=== PATIENT | male | born 1975 | race Caucasian/White ===

== ENCOUNTER → 2018-03-04 | Outpatient (CLI) | payer OTHER ==
--- NOTE | 2018-03-04 11:42 | Diagnostic Imaging Report ---
TECHNIQUE: Magnetic resonance imaging of the right ANKLE was performed WITHOUT injected contrast. COMPARISON: None available. HISTORY: ankle pain, swelling FINDINGS: LIGAMENTS: Medial Complex: Deltoid and spring complex intact. Lateral Complex: Inferior tibiofibular ligaments intact. Talofibular and calcaneofibular ligaments intact. TENDONS: Medial: Tendons intact. Lateral: Peroneal brevis tendinosis. No tear. Anterior: Tendinopathy and tenosynovitis of the anterior tibial tendon. Achilles: Intact BONES: No focal or infiltrative bone marrow replacing abnormality. No acute fracture or osteonecrosis. JOINTS: Cartilage: Mild midfoot and hindfoot degenerative arthrosis. Other: Fluid within the joints is within physiologic limits. SOFT TISSUES: Chronic plantar fascial thickening. IMPRESSION: No acute osseous or ligamentous abnormality. Tendinopathy and tenosynovitis of the anterior tibial tendon. Mild midfoot and hindfoot degenerative arthrosis. Signed by: Dr. David Rossi M.D. on 03/04/2018 11:39 AM
== END ==
LOC: MRI 08:52
PROVIDERS: ATTEND Podiatrist Foot & Ankle Surgery
DX: M25.571 Pain in right ankle and joints of right foot (principal); M25.471 Effusion, right ankle; M66.371 Spontaneous rupture of flexor tendons, right ankle and foot

== ENCOUNTER 2020-04-29 13:22 | Inpatient (IN) | payer BC ==
[~2020-04-29] VITALS: Ht 180.3 cm; Wt 105.4 kg
[2020-04-29 14:03] LABS: BASOPHILS # (AUTO) 0.1 (0.0-0.1); BASOPHILS % 0.3 % (0.0-1.0); EOSINOPHILS % 0.2 % (0.0-6.0); HEMATOCRIT 45.6 % (38.2-49.6); HEMOGLOBIN 15.5 g/dL (14.0-18.0); LYMPHOCYTES % 5.5 % (18.0-39.1); MEAN CORPUSCULAR HEMOGLOBIN 30.4 pg (28-32); MEAN CORPUSCULAR VOLUME 89.4 fL (81-99); MONOCYTES # (AUTO) 0.6 (0.2-0.8); MONOCYTES % 3.4 % (4.4-11.3); NEUTROPHILS # (AUTO) 15.8 (2.1-6.9); NEUTROPHILS % 88.9 % (38.7-80.0); PLATELET COUNT 253 x10e3/uL (140-360); RED CELL DISTRIBUTION WIDTH 12.7 % (11.7-14.4)
[2020-04-29 14:07] LABS: PROTHROMBIN TIME 13.8 seconds (11.9-14.5)
[2020-04-29 14:08] LABS: PARTIAL THROMBOPLASTIN TIME 29.2 seconds (23.8-35.5)
[2020-04-29 14:18] LABS: ALANINE AMINOTRANSFERASE 68 IU/L (0-55); ALBUMIN 3.6 g/dL (3.5-5.0); ALBUMIN/GLOBULIN RATIO 0.7 (0.8-2.0); ALKALINE PHOSPHATASE 81 IU/L (40-150); ANION GAP 17.9 mmol/L (8-16); BLOOD UREA NITROGEN 19 mg/dL (7-26); BUN/CREATININE RATIO 16 (6-25); CALCIUM 9.5 mg/dL (8.4-10.2); CARBON DIOXIDE 25 mmol/L (22-29); CHLORIDE 103 mmol/L (98-107); CREATINE KINASE 71 IU/L (30-200); CREATININE, SERUM 1.21 mg/dL (0.72-1.25); EST GLOMERULAR FILTRATION RATE > 60 ML/MIN (60-); GLUCOSE 119 mg/dL (74-118); MAGNESIUM 2.1 MG/DL (1.3-2.1); POTASSIUM 3.9 mmol/L (3.5-5.1); SODIUM 142 mmol/L (136-145)
[2020-04-29] MEDS ORDERED: CEFTRIAXONE SOD 1 GM 50 ML IV SCH (14:30)
[2020-04-29] MEDS ORDERED: IOPAMIDOL 370 MG/ML 200 ML INFUS..BTL INJ ONE (15:26)
[2020-04-29] MEDS ORDERED: SODIUM CHLORIDE 0.9% 50ML 50 ML ONE (15:26)
[2020-04-29] MEDS ORDERED: SODIUM CHLORIDE 0.9% 1000ML 1,000 ML IV SCH (15:30)
[2020-04-29] MEDS ORDERED: REMDESIVIR 200MG/NS 100ML 200 MG IV SCH (16:15)
[2020-04-29] MEDS ORDERED: DEXAMETHASONE SOD PHOS 10 MG/1 ML VIAL IV ONE (16:15)
[2020-04-29] MEDS: AZITHROMYCIN 500MG/NS 250 ML 250 ML IV SCH (16:34)
[2020-04-29] MEDS: ENOXAPARIN INJ 80 MG/0.8 ML SYR SC SCH (16:34)
[2020-04-29] MEDS: ASCORBIC ACID 500 MG TAB PO SCH ×3 (16:34→17:52)
[2020-04-29] MEDS ORDERED: DEXAMETHASONE4 MG PO (16:43)
[2020-04-29] MEDS ORDERED: PROAIR HFA INH8.5 GM PO (16:43)
[2020-04-29] MEDS ORDERED: VALACYCLOVIR1000 MG PO (16:43)
[2020-04-29] MEDS ORDERED: REMDESIVIR 200MG/NS 100ML 200 MG in SODIUM CHLORIDE 0.9% 100 ML 100 ML IV ONE (17:00)
[2020-04-29] MEDS ORDERED: ENOXAPARIN INJ 80 MG/0.8 ML SYR SC SCH (17:00)
[2020-04-29] MEDS: CEFTRIAXONE SOD 2 GM 100 ML IV SCH (17:00)
[2020-04-29] MEDS ORDERED: ASCORBIC ACID 500 MG TAB PO SCH (17:00)
[2020-04-29] MEDS ORDERED: CELECOXIB 200 MG CAP PO PRN (18:00)
[2020-04-29 19:32] LABS: ABG HCO3 24 mmol/L (22-26); ABG PCO2 34 mmHg (35-45); ABG PH 7.46 (7.35-7.45); ABG PO2 66 mmHg (80-105); ABG TCO2 25
[2020-04-30 06:54] LABS: BASOPHILS % 0.2 % (0.0-1.0); HEMATOCRIT 38.8 % (38.2-49.6); HEMOGLOBIN 13.1 g/dL (14.0-18.0); LYMPHOCYTES # (AUTO) 0.9 (1.0-3.2); LYMPHOCYTES % 7.1 % (18.0-39.1); MEAN CORPUSCULAR HEMOGLOBIN 30.8 pg (28-32); MEAN CORPUSCULAR HGB CONC 33.8 g/dL (31-35); MEAN CORPUSCULAR VOLUME 91.1 fL (81-99); MONOCYTES # (AUTO) 0.8 (0.2-0.8); MONOCYTES % 6.3 % (4.4-11.3); NEUTROPHILS # (AUTO) 10.8 (2.1-6.9); NEUTROPHILS % 83.8 % (38.7-80.0); PLATELET COUNT 214 x10e3/uL (140-360); RED BLOOD COUNT 4.26 x10e6/uL (4.3-5.7); RED CELL DISTRIBUTION WIDTH 12.9 % (11.7-14.4)
[2020-04-30 07:24] VITALS: BP 124/89
[2020-04-30 07:28] VITALS: BP 124/89
[2020-04-30] MEDS ORDERED: DEXAMETHASONE SOD PHOS 10 MG/1 ML VIAL IV SCH (07:30)
[2020-04-30 07:32] VITALS: BP 124/89
[2020-04-30 07:46] LABS: CREATINE KINASE MB 0.8 ng/mL (0-5.0)
[2020-04-30 08:05] LABS: ALANINE AMINOTRANSFERASE 102 IU/L (0-55); ALBUMIN 2.8 g/dL (3.5-5.0); ALBUMIN/GLOBULIN RATIO 0.7 (0.8-2.0); ALKALINE PHOSPHATASE 80 IU/L (40-150); ANION GAP 15.1 mmol/L (8-16); BLOOD UREA NITROGEN 23 mg/dL (7-26); BUN/CREATININE RATIO 23 (6-25); CALCIUM 8.5 mg/dL (8.4-10.2); CARBON DIOXIDE 23 mmol/L (22-29); CHLORIDE 108 mmol/L (98-107); EST GLOMERULAR FILTRATION RATE > 60 ML/MIN (60-); GLUCOSE 116 mg/dL (74-118); POTASSIUM 4.1 mmol/L (3.5-5.1); SODIUM 142 mmol/L (136-145)
[2020-04-30] MEDS ORDERED: ZINC SULFATE 220 MG CAP PO SCH (09:00)
[2020-04-30] MEDS: ZINC SULFATE 220 MG CAP PO SCH (09:00)
[2020-04-30] MEDS ORDERED: AZITHROMYCIN 500MG/NS 250 ML 250 ML IV SCH (09:00)
[2020-04-30] MEDS: ENOXAPARIN INJ 80 MG/0.8 ML SYR SC SCH ×2 (09:23→16:21)
[2020-04-30] MEDS: PANTOPRAZOLE SOD 40 MG TABEC PO SCH (09:23)
[2020-04-30] MEDS: DEXAMETHASONE SOD PHOS 10 MG/1 ML VIAL IV SCH (09:23)
[2020-04-30] MEDS: ASCORBIC ACID 500 MG TAB PO SCH ×2 (09:23→16:21)
[2020-04-30 11:25] VITALS: BP 140/85
[2020-04-30 15:06] VITALS: BP 146/79
[2020-04-30] MEDS: AZITHROMYCIN 500MG/NS 250 ML 250 ML IV SCH (15:48)
[2020-04-30] MEDS: REMDESIVIR 100MG/NS 100ML 100 MG IV SCH (16:21)
[2020-04-30 16:46] LABS: ABG HCO3 23 mmol/L (22-26); ABG PCO2 34 mmHg (35-45); ABG PH 7.44 (7.35-7.45); ABG PO2 49 mmHg (80-105); ABG TCO2 24
[2020-04-30] MEDS: CEFTRIAXONE SOD 2 GM 100 ML IV SCH (17:26)
[2020-05-01 06:57] LABS: BASOPHILS % 0.2 % (0.0-1.0); HEMATOCRIT 38.5 % (38.2-49.6); LYMPHOCYTES # (AUTO) 1.5 (1.0-3.2); LYMPHOCYTES % 8.6 % (18.0-39.1); MEAN CORPUSCULAR HEMOGLOBIN 30.6 pg (28-32); MEAN CORPUSCULAR HGB CONC 33.8 g/dL (31-35); MEAN CORPUSCULAR VOLUME 90.6 fL (81-99); MONOCYTES % 6.1 % (4.4-11.3); NEUTROPHILS % 82.7 % (38.7-80.0); PLATELET COUNT 256 x10e3/uL (140-360); RED BLOOD COUNT 4.25 x10e6/uL (4.3-5.7)
[2020-05-01] MEDS: ACETAMINOPHEN 325 MG TAB PO PRN (07:02)
[2020-05-01 07:24] LABS: ALANINE AMINOTRANSFERASE 96 IU/L (0-55); ALBUMIN 2.7 g/dL (3.5-5.0); ALBUMIN/GLOBULIN RATIO 0.7 (0.8-2.0); ALKALINE PHOSPHATASE 73 IU/L (40-150); ANION GAP 12.9 mmol/L (8-16); BLOOD UREA NITROGEN 29 mg/dL (7-26); BUN/CREATININE RATIO 29 (6-25); CALCIUM 8.4 mg/dL (8.4-10.2); CARBON DIOXIDE 25 mmol/L (22-29); CHLORIDE 107 mmol/L (98-107); CREATININE, SERUM 1.01 mg/dL (0.72-1.25); EST GLOMERULAR FILTRATION RATE > 60 ML/MIN (60-); GLUCOSE 105 mg/dL (74-118); POTASSIUM 3.9 mmol/L (3.5-5.1); SODIUM 141 mmol/L (136-145)
[2020-05-01] MEDS: ENOXAPARIN INJ 80 MG/0.8 ML SYR SC SCH ×2 (12:37→17:08)
[2020-05-01] MEDS: ZINC SULFATE 220 MG CAP PO SCH (12:37)
[2020-05-01] MEDS: ASCORBIC ACID 500 MG TAB PO SCH ×2 (12:37→17:08)
[2020-05-01] MEDS: PANTOPRAZOLE SOD 40 MG TABEC PO SCH (12:37)
[2020-05-01] MEDS: DEXAMETHASONE SOD PHOS 10 MG/1 ML VIAL IV SCH (12:37)
[2020-05-01] MEDS: AZITHROMYCIN 500MG/NS 250 ML 250 ML IV SCH (15:44)
[2020-05-01] MEDS: REMDESIVIR 100MG/NS 100ML 100 MG IV SCH (17:09)
[2020-05-01] MEDS: ONDANSETRON HCL INJ 2MG/ML 2ML 2 MG/ML VIAL IV PRN (17:29)
[2020-05-01] MEDS: CEFTRIAXONE SOD 2 GM 100 ML IV SCH (18:58)
[2020-05-01] MEDS: ALBUTEROL SULFATE HFA 8GM INHALATION AEROSOL INH SCH (19:00)
[2020-05-02] VITALS (8 sets, daily range): BP systolic 112–135; BP diastolic 71–88
[2020-05-02] MEDS: BENZONATATE 100 MG CAP PO SCH ×4 (01:45→21:17)
[2020-05-02] MEDS: ALBUTEROL SULFATE HFA 8GM INHALATION AEROSOL INH SCH ×4 (02:15→19:30)
[2020-05-02] MEDS: ACETAMINOPHEN 325 MG TAB PO PRN ×2 (04:12→23:56)
[2020-05-02 05:53] LABS: BASOPHILS % 0.2 % (0.0-1.0); EOSINOPHILS % 0.1 % (0.0-6.0); HEMATOCRIT 38.6 % (38.2-49.6); HEMOGLOBIN 12.8 g/dL (14.0-18.0); LYMPHOCYTES # (AUTO) 1.1 (1.0-3.2); LYMPHOCYTES % 7.1 % (18.0-39.1); MEAN CORPUSCULAR HEMOGLOBIN 30.5 pg (28-32); MEAN CORPUSCULAR HGB CONC 33.2 g/dL (31-35); MEAN CORPUSCULAR VOLUME 91.9 fL (81-99); MONOCYTES # (AUTO) 0.9 (0.2-0.8); NEUTROPHILS % 84.4 % (38.7-80.0); PLATELET COUNT 278 x10e3/uL (140-360); RED CELL DISTRIBUTION WIDTH 12.8 % (11.7-14.4)
[2020-05-02 06:10] LABS: ALANINE AMINOTRANSFERASE 84 IU/L (0-55); ALBUMIN 2.7 g/dL (3.5-5.0); ALBUMIN/GLOBULIN RATIO 0.7 (0.8-2.0); ALKALINE PHOSPHATASE 68 IU/L (40-150); ANION GAP 12.7 mmol/L (8-16); BLOOD UREA NITROGEN 27 mg/dL (7-26); BUN/CREATININE RATIO 27 (6-25); CALCIUM 8.4 mg/dL (8.4-10.2); CARBON DIOXIDE 23 mmol/L (22-29); CHLORIDE 107 mmol/L (98-107); EST GLOMERULAR FILTRATION RATE > 60 ML/MIN (60-); GLUCOSE 104 mg/dL (74-118); POTASSIUM 3.7 mmol/L (3.5-5.1); SODIUM 139 mmol/L (136-145)
[2020-05-02] MEDS: PANTOPRAZOLE SOD 40 MG TABEC PO SCH (07:57)
[2020-05-02] MEDS: ONDANSETRON HCL INJ 2MG/ML 2ML 2 MG/ML VIAL IV PRN (07:57)
[2020-05-02] MEDS: DEXAMETHASONE SOD PHOS 10 MG/1 ML VIAL IV SCH (07:57)
[2020-05-02] MEDS: ASCORBIC ACID 500 MG TAB PO SCH ×2 (09:02→19:16)
[2020-05-02] MEDS: ZINC SULFATE 220 MG CAP PO SCH (09:03)
[2020-05-02] MEDS: ENOXAPARIN SOD INJ 40 MG/0.4 ML SYR SC SCH ×2 (09:54→19:16)
[2020-05-02] MEDS: AZITHROMYCIN 500MG/NS 250 ML 250 ML IV SCH (15:22)
[2020-05-02] MEDS ORDERED: SODIUM CHLORIDE 0.9% 250ML 250 ML ONE (19:23)
[2020-05-02] MEDS: REMDESIVIR 100MG/NS 100ML 100 MG IV SCH (19:26)
[2020-05-02] MEDS: CEFTRIAXONE SOD 2 GM 100 ML IV SCH (19:35)
[2020-05-03] VITALS (7 sets, daily range): BP systolic 97–128; BP diastolic 44–77
[2020-05-03] MEDS: ALBUTEROL SULFATE HFA 8GM INHALATION AEROSOL INH SCH ×4 (01:00→19:00)
[2020-05-03] MEDS: ONDANSETRON HCL INJ 2MG/ML 2ML 2 MG/ML VIAL IV PRN ×2 (04:50→21:15)
[2020-05-03 05:17] LABS: BASOPHILS % 0.2 % (0.0-1.0); EOSINOPHILS # (AUTO) 0.1 (0.0-0.4); EOSINOPHILS % 0.5 % (0.0-6.0); HEMATOCRIT 37.7 % (38.2-49.6); HEMOGLOBIN 12.6 g/dL (14.0-18.0); LYMPHOCYTES # (AUTO) 0.9 (1.0-3.2); LYMPHOCYTES % 6.3 % (18.0-39.1); MEAN CORPUSCULAR HEMOGLOBIN 30.4 pg (28-32); MEAN CORPUSCULAR HGB CONC 33.4 g/dL (31-35); MEAN CORPUSCULAR VOLUME 90.8 fL (81-99); MONOCYTES # (AUTO) 0.7 (0.2-0.8); MONOCYTES % 5.1 % (4.4-11.3); NEUTROPHILS # (AUTO) 11.8 (2.1-6.9); NEUTROPHILS % 83.8 % (38.7-80.0); PLATELET COUNT 262 x10e3/uL (140-360); RED BLOOD COUNT 4.15 x10e6/uL (4.3-5.7); RED CELL DISTRIBUTION WIDTH 12.4 % (11.7-14.4)
[2020-05-03 05:43] LABS: ALANINE AMINOTRANSFERASE 96 IU/L (0-55); ALBUMIN 2.5 g/dL (3.5-5.0); ALBUMIN/GLOBULIN RATIO 0.7 (0.8-2.0); ALKALINE PHOSPHATASE 71 IU/L (40-150); ANION GAP 12.8 mmol/L (8-16); BLOOD UREA NITROGEN 24 mg/dL (7-26); BUN/CREATININE RATIO 25 (6-25); CALCIUM 8.3 mg/dL (8.4-10.2); CARBON DIOXIDE 23 mmol/L (22-29); CHLORIDE 107 mmol/L (98-107); CREATININE, SERUM 0.95 mg/dL (0.72-1.25); EST GLOMERULAR FILTRATION RATE > 60 ML/MIN (60-); GLUCOSE 109 mg/dL (74-118); POTASSIUM 3.8 mmol/L (3.5-5.1); SODIUM 139 mmol/L (136-145)
[2020-05-03] MEDS: ENOXAPARIN SOD INJ 40 MG/0.4 ML SYR SC SCH ×2 (08:23→16:42)
[2020-05-03] MEDS: ZINC SULFATE 220 MG CAP PO SCH (08:23)
[2020-05-03] MEDS: PANTOPRAZOLE SOD 40 MG TABEC PO SCH (08:23)
[2020-05-03] MEDS: BENZONATATE 100 MG CAP PO SCH ×3 (08:23→21:14)
[2020-05-03] MEDS: DEXAMETHASONE SOD PHOS 10 MG/1 ML VIAL IV SCH (08:23)
[2020-05-03] MEDS: ASCORBIC ACID 500 MG TAB PO SCH ×2 (08:23→16:42)
[2020-05-03] MEDS: AZITHROMYCIN 500MG/NS 250 ML 250 ML IV SCH (14:04)
[2020-05-03] MEDS: REMDESIVIR 100MG/NS 100ML 100 MG IV SCH (16:42)
[2020-05-03] MEDS: CEFTRIAXONE SOD 2 GM 100 ML IV SCH (17:45)
[2020-05-04] VITALS (7 sets, daily range): BP systolic 113–121; BP diastolic 71–80
[2020-05-04] MEDS: ALBUTEROL SULFATE HFA 8GM INHALATION AEROSOL INH SCH ×4 (01:00→19:00)
[2020-05-04] MEDS: ACETAMINOPHEN 325 MG TAB PO PRN ×2 (06:19→20:06)
[2020-05-04] MEDS: ENOXAPARIN SOD INJ 40 MG/0.4 ML SYR SC SCH ×2 (08:27→17:00)
[2020-05-04] MEDS: ZINC SULFATE 220 MG CAP PO SCH (08:27)
[2020-05-04] MEDS: ASCORBIC ACID 500 MG TAB PO SCH ×2 (08:27→17:00)
[2020-05-04] MEDS: PANTOPRAZOLE SOD 40 MG TABEC PO SCH (08:27)
[2020-05-04] MEDS: BENZONATATE 100 MG CAP PO SCH ×3 (08:27→21:00)
[2020-05-04] MEDS: DEXAMETHASONE SOD PHOS 10 MG/1 ML VIAL IV SCH (08:27)
[2020-05-04 09:39] LABS: BASOPHILS % 0.2 % (0.0-1.0); EOSINOPHILS # (AUTO) 0.2 (0.0-0.4); HEMATOCRIT 38.6 % (38.2-49.6); HEMOGLOBIN 13.1 g/dL (14.0-18.0); LYMPHOCYTES # (AUTO) 0.7 (1.0-3.2); LYMPHOCYTES % 4.2 % (18.0-39.1); MEAN CORPUSCULAR HEMOGLOBIN 30.7 pg (28-32); MEAN CORPUSCULAR HGB CONC 33.9 g/dL (31-35); MEAN CORPUSCULAR VOLUME 90.4 fL (81-99); MONOCYTES # (AUTO) 0.9 (0.2-0.8); MONOCYTES % 4.9 % (4.4-11.3); NEUTROPHILS # (AUTO) 14.9 (2.1-6.9); NEUTROPHILS % 86.4 % (38.7-80.0); PLATELET COUNT 283 x10e3/uL (140-360); RED BLOOD COUNT 4.27 x10e6/uL (4.3-5.7); RED CELL DISTRIBUTION WIDTH 12.4 % (11.7-14.4)
[2020-05-04 09:57] LABS: ALANINE AMINOTRANSFERASE 65 IU/L (0-55); ALBUMIN 2.5 g/dL (3.5-5.0); ALBUMIN/GLOBULIN RATIO 0.7 (0.8-2.0); ALKALINE PHOSPHATASE 73 IU/L (40-150); ANION GAP 11.9 mmol/L (8-16); BLOOD UREA NITROGEN 28 mg/dL (7-26); BUN/CREATININE RATIO 32 (6-25); CALCIUM 8.6 mg/dL (8.4-10.2); CARBON DIOXIDE 23 mmol/L (22-29); CHLORIDE 108 mmol/L (98-107); CREATININE, SERUM 0.87 mg/dL (0.72-1.25); EST GLOMERULAR FILTRATION RATE > 60 ML/MIN (60-); GLUCOSE 113 mg/dL (74-118); POTASSIUM 3.9 mmol/L (3.5-5.1); SODIUM 139 mmol/L (136-145)
[2020-05-04] MEDS ORDERED: DEXMEDETOMIDINE 200MCG/NS 50ML 50 ML IV PRN (13:15)
[2020-05-04 14:05] LABS: ABG HCO3 24 mmol/L (22-26); ABG PCO2 33 mmHg (35-45); ABG PH 7.47 (7.35-7.45); ABG PO2 44 mmHg (80-105); ABG TCO2 25
[2020-05-04] MEDS: CEFTRIAXONE SOD 2 GM 100 ML IV SCH (17:00)
[2020-05-04] MEDS: ONDANSETRON HCL INJ 2MG/ML 2ML 2 MG/ML VIAL IV PRN (21:30)
[2020-05-05] VITALS (24 sets, daily range): BP systolic 103–136; BP diastolic 63–84
[2020-05-05] MEDS: ALBUTEROL SULFATE HFA 8GM INHALATION AEROSOL INH SCH ×4 (01:00→19:00)
[2020-05-05 05:13] LABS: BASOPHILS % 0.2 % (0.0-1.0); EOSINOPHILS # (AUTO) 0.1 (0.0-0.4); EOSINOPHILS % 0.6 % (0.0-6.0); HEMATOCRIT 40.9 % (38.2-49.6); HEMOGLOBIN 13.7 g/dL (14.0-18.0); LYMPHOCYTES # (AUTO) 0.6 (1.0-3.2); LYMPHOCYTES % 3.5 % (18.0-39.1); MEAN CORPUSCULAR HEMOGLOBIN 30.4 pg (28-32); MEAN CORPUSCULAR HGB CONC 33.5 g/dL (31-35); MEAN CORPUSCULAR VOLUME 90.7 fL (81-99); MONOCYTES # (AUTO) 0.8 (0.2-0.8); MONOCYTES % 4.4 % (4.4-11.3); NEUTROPHILS # (AUTO) 16.2 (2.1-6.9); NEUTROPHILS % 88.9 % (38.7-80.0); PLATELET COUNT 299 x10e3/uL (140-360); RED BLOOD COUNT 4.51 x10e6/uL (4.3-5.7); RED CELL DISTRIBUTION WIDTH 12.4 % (11.7-14.4)
[2020-05-05 05:39] LABS: ALANINE AMINOTRANSFERASE 51 IU/L (0-55); ALBUMIN 2.5 g/dL (3.5-5.0); ALBUMIN/GLOBULIN RATIO 0.6 (0.8-2.0); ALKALINE PHOSPHATASE 90 IU/L (40-150); ANION GAP 14.2 mmol/L (8-16); BLOOD UREA NITROGEN 28 mg/dL (7-26); BUN/CREATININE RATIO 29 (6-25); CALCIUM 8.7 mg/dL (8.4-10.2); CARBON DIOXIDE 24 mmol/L (22-29); CHLORIDE 106 mmol/L (98-107); CREATININE, SERUM 0.95 mg/dL (0.72-1.25); EST GLOMERULAR FILTRATION RATE > 60 ML/MIN (60-); GLUCOSE 110 mg/dL (74-118); POTASSIUM 4.2 mmol/L (3.5-5.1); SODIUM 140 mmol/L (136-145)
[2020-05-05] MEDS ORDERED: ACETAMINOPHEN 1000 MG/100 ML IV STA (08:12)
[2020-05-05] MEDS: DEXAMETHASONE SOD PHOS 10 MG/1 ML VIAL IV SCH (08:24)
[2020-05-05] MEDS: SODIUM CHLORIDE 0.9% 1000ML 1,000 ML IV SCH ×2 (08:35→22:01)
[2020-05-05] MEDS: BENZONATATE 100 MG CAP PO SCH ×3 (08:36→21:59)
[2020-05-05] MEDS: ZINC SULFATE 220 MG CAP PO SCH (08:36)
[2020-05-05] MEDS: ENOXAPARIN SOD INJ 40 MG/0.4 ML SYR SC SCH ×2 (08:36→21:59)
[2020-05-05] MEDS: ASCORBIC ACID 500 MG TAB PO SCH ×2 (08:36→17:00)
[2020-05-05] MEDS ORDERED: PANTOPRAZOLE 40 MG 10ML VIAL IV SCH (09:00)
[2020-05-05] MEDS ORDERED: MEROPENEM 500MG/ NS 50ML 500 MG in MEROPENEM 500MG/ NS 50ML 50 ML IV SCH (09:45)
[2020-05-05] MEDS: DEXMEDETOMIDINE 200MCG/NS 50ML 50 ML IV PRN ×2 (10:01→20:30)
[2020-05-05] MEDS: MEROPENEM 500MG/ NS 50ML 50 ML IV SCH ×2 (10:05→18:25)
[2020-05-05 10:23] LABS: AMYLASE 44 U/L (25-125); LIPASE 10 U/L (8-78)
[2020-05-05] MEDS: VANCOMYCIN 1GM/NS 250 ML 250 ML IV SCH ×2 (10:37→23:15)
[2020-05-05] MEDS: FAMOTIDINE 20 MG/2 ML VIAL IV SCH (10:40)
[2020-05-05 11:15] LABS: ABG HCO3 24 mmol/L (22-26); ABG PCO2 32 mmHg (35-45); ABG PH 7.47 (7.35-7.45); ABG PO2 94 mmHg (80-105); ABG TCO2 25
[2020-05-06] VITALS (24 sets, daily range): BP systolic 107–141; BP diastolic 67–91
[2020-05-06] MEDS: ALBUTEROL SULFATE HFA 8GM INHALATION AEROSOL INH SCH ×4 (01:00→19:12)
[2020-05-06] MEDS: MEROPENEM 500MG/ NS 50ML 50 ML IV SCH ×3 (02:11→18:07)
[2020-05-06] MEDS: DEXMEDETOMIDINE 200MCG/NS 50ML 50 ML IV PRN ×2 (03:05→08:00)
[2020-05-06 05:41] LABS: BASOPHILS # (AUTO) 0.1 (0.0-0.1); BASOPHILS % 0.3 % (0.0-1.0); EOSINOPHILS # (AUTO) 0.1 (0.0-0.4); EOSINOPHILS % 0.8 % (0.0-6.0); HEMATOCRIT 40.8 % (38.2-49.6); HEMOGLOBIN 13.4 g/dL (14.0-18.0); LYMPHOCYTES # (AUTO) 0.6 (1.0-3.2); LYMPHOCYTES % 3.4 % (18.0-39.1); MEAN CORPUSCULAR HEMOGLOBIN 29.9 pg (28-32); MEAN CORPUSCULAR HGB CONC 32.8 g/dL (31-35); MEAN CORPUSCULAR VOLUME 91.1 fL (81-99); MONOCYTES # (AUTO) 0.8 (0.2-0.8); MONOCYTES % 4.9 % (4.4-11.3); NEUTROPHILS # (AUTO) 14.9 (2.1-6.9); NEUTROPHILS % 88.5 % (38.7-80.0); PLATELET COUNT 254 x10e3/uL (140-360); RED BLOOD COUNT 4.48 x10e6/uL (4.3-5.7); RED CELL DISTRIBUTION WIDTH 12.2 % (11.7-14.4)
[2020-05-06 05:53] LABS: ALANINE AMINOTRANSFERASE 32 IU/L (0-55); ALBUMIN 2.3 g/dL (3.5-5.0); ALBUMIN/GLOBULIN RATIO 0.6 (0.8-2.0); ALKALINE PHOSPHATASE 79 IU/L (40-150); ANION GAP 12.3 mmol/L (8-16); BLOOD UREA NITROGEN 28 mg/dL (7-26); BUN/CREATININE RATIO 31 (6-25); CALCIUM 8.8 mg/dL (8.4-10.2); CARBON DIOXIDE 25 mmol/L (22-29); CHLORIDE 108 mmol/L (98-107); EST GLOMERULAR FILTRATION RATE > 60 ML/MIN (60-); GLUCOSE 119 mg/dL (74-118); POTASSIUM 4.3 mmol/L (3.5-5.1); SODIUM 141 mmol/L (136-145)
[2020-05-06 06:52] LABS: CREATINE KINASE 87 IU/L (30-200)
[2020-05-06] MEDS ORDERED: KETOROLAC TROMETHAMINE 30 MG/ML VIAL IV PRN (07:00)
[2020-05-06] MEDS: DEXAMETHASONE SOD PHOS 10 MG/1 ML VIAL IV SCH (07:13)
[2020-05-06] MEDS: DEXTROSE 5%/0.45% SOD CHL 1,000 ML IV SCH ×2 (07:13→15:35)
[2020-05-06] MEDS ORDERED: ACETAMINOPHEN 1000 MG/100 ML IV STA (07:35)
[2020-05-06] MEDS: BENZONATATE 100 MG CAP PO SCH ×3 (09:00→20:51)
[2020-05-06] MEDS: ASCORBIC ACID 500 MG TAB PO SCH ×2 (09:00→17:00)
[2020-05-06] MEDS: ZINC SULFATE 220 MG CAP PO SCH (09:00)
[2020-05-06] MEDS: FAMOTIDINE 20 MG/2 ML VIAL IV SCH (10:12)
[2020-05-06] MEDS: ENOXAPARIN SOD INJ 40 MG/0.4 ML SYR SC SCH ×2 (10:13→21:26)
[2020-05-06] MEDS ORDERED: ACETAMINOPHEN 1000 MG/100 ML IV ONE (10:30)
[2020-05-06] MEDS: VANCOMYCIN 1GM/NS 250 ML 250 ML IV SCH ×2 (11:28→23:46)
[2020-05-06] MEDS ORDERED: DEXTROSE 50% SYRINGE 50 ML IV PRN (14:15)
[2020-05-06 16:08] LABS: ALBUMIN 2.2 g/dL (3.5-5.0); BILIRUBIN,DIRECT 0.3 mg/dL (0.0-0.5); MAGNESIUM 2.2 MG/DL (1.3-2.1); PHOSPHORUS 3.5 MG/DL (2.3-4.7)
[2020-05-06 16:15] LABS: CALCIUM IONIZED 1.2 mmol/L (1.09-1.30)
[2020-05-06] MEDS ORDERED: INSULIN REGULAR, HUMAN 100 UNIT/1 ML 3ML VIAL SQ SCH (16:30)
[2020-05-06] MEDS: CENTRAL TPN FORMULA 1 BAG IV SCH (20:23)
[2020-05-07] VITALS (29 sets, daily range): BP systolic 112–151; BP diastolic 23–102
[2020-05-07] MEDS: ALBUTEROL SULFATE HFA 8GM INHALATION AEROSOL INH SCH ×4 (00:50→18:41)
[2020-05-07] MEDS: MEROPENEM 500MG/ NS 50ML 50 ML IV SCH ×3 (02:35→18:08)
[2020-05-07] MEDS: KETOROLAC TROMETHAMINE 30 MG/ML VIAL IV PRN ×2 (03:40→11:34)
[2020-05-07] MEDS: DEXMEDETOMIDINE 200MCG/NS 50ML 50 ML IV PRN ×3 (03:45→18:09)
[2020-05-07 05:59] LABS: BASOPHILS % 0.1 % (0.0-1.0); EOSINOPHILS # (AUTO) 0.1 (0.0-0.4); EOSINOPHILS % 0.5 % (0.0-6.0); HEMATOCRIT 40.2 % (38.2-49.6); HEMOGLOBIN 13.4 g/dL (14.0-18.0); LYMPHOCYTES # (AUTO) 0.6 (1.0-3.2); LYMPHOCYTES % 2.9 % (18.0-39.1); MEAN CORPUSCULAR HEMOGLOBIN 30.5 pg (28-32); MEAN CORPUSCULAR HGB CONC 33.3 g/dL (31-35); MEAN CORPUSCULAR VOLUME 91.4 fL (81-99); MONOCYTES % 4.8 % (4.4-11.3); NEUTROPHILS # (AUTO) 18.1 (2.1-6.9); NEUTROPHILS % 90.4 % (38.7-80.0); PLATELET COUNT 243 x10e3/uL (140-360); RED CELL DISTRIBUTION WIDTH 11.9 % (11.7-14.4)
[2020-05-07 06:50] LABS: ALANINE AMINOTRANSFERASE 39 IU/L (0-55); ALBUMIN/GLOBULIN RATIO 0.5 (0.8-2.0); ALKALINE PHOSPHATASE 88 IU/L (40-150); ANION GAP 12.1 mmol/L (8-16); BLOOD UREA NITROGEN 29 mg/dL (7-26); BUN/CREATININE RATIO 35 (6-25); CALCIUM 7.8 mg/dL (8.4-10.2); CARBON DIOXIDE 26 mmol/L (22-29); CHLORIDE 107 mmol/L (98-107); CREATININE, SERUM 0.83 mg/dL (0.72-1.25); EST GLOMERULAR FILTRATION RATE > 60 ML/MIN (60-); GLUCOSE 127 mg/dL (74-118); MAGNESIUM 2.2 MG/DL (1.3-2.1); POTASSIUM 4.1 mmol/L (3.5-5.1); SODIUM 141 mmol/L (136-145)
[2020-05-07] MEDS: BENZONATATE 100 MG CAP PO SCH ×3 (09:00→20:52)
[2020-05-07] MEDS: ASCORBIC ACID 500 MG TAB PO SCH ×2 (09:00→17:00)
[2020-05-07] MEDS: ZINC SULFATE 220 MG CAP PO SCH (09:00)
[2020-05-07] MEDS: FAMOTIDINE 20 MG/2 ML VIAL IV SCH (09:13)
[2020-05-07] MEDS: ENOXAPARIN SOD INJ 40 MG/0.4 ML SYR SC SCH ×2 (09:14→21:00)
[2020-05-07] MEDS ORDERED: VANCOMYCIN 1GM/NS 250 ML 250 ML IV SCH (12:00)
[2020-05-07] MEDS: VANCOMYCIN HCL 1.25 GM in SODIUM CHLORIDE 0.9% 250ML 250 ML IV SCH (13:24)
[2020-05-07] MEDS: CENTRAL TPN FORMULA 1 BAG IV SCH (19:45)
[2020-05-08] VITALS (23 sets, daily range): BP systolic 83–131; BP diastolic 57–88
[2020-05-08] MEDS: DEXMEDETOMIDINE 200MCG/NS 50ML 50 ML IV PRN ×6 (00:14→22:00)
[2020-05-08] MEDS: KETOROLAC TROMETHAMINE 30 MG/ML VIAL IV PRN (00:40)
[2020-05-08] MEDS: VANCOMYCIN HCL 1.25 GM in SODIUM CHLORIDE 0.9% 250ML 250 ML IV SCH ×2 (00:46→12:18)
[2020-05-08] MEDS: ALBUTEROL SULFATE HFA 8GM INHALATION AEROSOL INH SCH ×4 (01:00→19:00)
[2020-05-08] MEDS: MEROPENEM 500MG/ NS 50ML 50 ML IV SCH ×3 (02:36→17:30)
[2020-05-08 05:25] LABS: ALANINE AMINOTRANSFERASE 179 IU/L (0-55); ALBUMIN 1.7 g/dL (3.5-5.0); ALBUMIN/GLOBULIN RATIO 0.4 (0.8-2.0); ALKALINE PHOSPHATASE 132 IU/L (40-150); ANION GAP 11.1 mmol/L (8-16); BLOOD UREA NITROGEN 26 mg/dL (7-26); BUN/CREATININE RATIO 35 (6-25); CALCIUM 7.7 mg/dL (8.4-10.2); CARBON DIOXIDE 24 mmol/L (22-29); CHLORIDE 112 mmol/L (98-107); CREATININE, SERUM 0.74 mg/dL (0.72-1.25); EST GLOMERULAR FILTRATION RATE > 60 ML/MIN (60-); GLUCOSE 117 mg/dL (74-118); POTASSIUM 4.1 mmol/L (3.5-5.1); SODIUM 143 mmol/L (136-145)
[2020-05-08 06:53] LABS: BASOPHILS # (AUTO) 0.1 (0.0-0.1); BASOPHILS % 0.3 % (0.0-1.0); EOSINOPHILS # (AUTO) 0.3 (0.0-0.4); EOSINOPHILS % 1.7 % (0.0-6.0); HEMATOCRIT 39.2 % (38.2-49.6); HEMOGLOBIN 12.9 g/dL (14.0-18.0); LYMPHOCYTES % 5.9 % (18.0-39.1); MEAN CORPUSCULAR HEMOGLOBIN 30.7 pg (28-32); MEAN CORPUSCULAR HGB CONC 32.9 g/dL (31-35); MEAN CORPUSCULAR VOLUME 93.3 fL (81-99); MONOCYTES # (AUTO) 0.9 (0.2-0.8); MONOCYTES % 5.5 % (4.4-11.3); NEUTROPHILS # (AUTO) 14.5 (2.1-6.9); NEUTROPHILS % 85.4 % (38.7-80.0); PLATELET COUNT 224 x10e3/uL (140-360); RED CELL DISTRIBUTION WIDTH 12.5 % (11.7-14.4)
[2020-05-08] MEDS: ZINC SULFATE 220 MG CAP PO SCH (08:11)
[2020-05-08] MEDS: BENZONATATE 100 MG CAP PO SCH ×3 (08:11→20:09)
[2020-05-08] MEDS: ASCORBIC ACID 500 MG TAB PO SCH ×2 (08:11→15:26)
[2020-05-08] MEDS: ENOXAPARIN SOD INJ 40 MG/0.4 ML SYR SC SCH ×2 (09:56→20:09)
[2020-05-08] MEDS: FAMOTIDINE 20 MG/2 ML VIAL IV SCH (09:56)
[2020-05-08] MEDS ORDERED: FUROSEMIDE INJ 10 MG/ML 4 ML VIAL IV ONE (20:00)
[2020-05-08] MEDS ORDERED: CENTRAL TPN FORMULA 1 BAG IV SCH (20:00)
[2020-05-09] VITALS (30 sets, daily range): BP systolic 80–154; BP diastolic 38–98
[2020-05-09] MEDS ORDERED: NOREPINEPHRINE INJ 4MG/4ML 8 MG in DEXTROSE 5% 250ML 250 ML IV PRN (00:15)
[2020-05-09] MEDS: MORPHINE SULFATE INJ 2 MG/ML SYR IV PRN ×3 (00:30→18:08)
[2020-05-09] MEDS ORDERED: MORPHINE SULFATE INJ 2 MG/ML SYR ONE (00:30)
[2020-05-09] MEDS ORDERED: NOREPINEPHRINE 8 MG/D5W 250 ML 250 ML ONE (00:31)
[2020-05-09] MEDS: VANCOMYCIN HCL 1.25 GM in SODIUM CHLORIDE 0.9% 250ML 250 ML IV SCH ×2 (00:37→12:00)
[2020-05-09] MEDS: ALBUTEROL SULFATE HFA 8GM INHALATION AEROSOL INH SCH ×4 (01:00→19:00)
[2020-05-09 01:09] LABS: ABG PCO2 38 mmHg (35-45); ABG PH 7.44 (7.35-7.45); ABG PO2 87 mmHg (80-105)
[2020-05-09 01:10] LABS: ABG HCO3 26 mmol/L (22-26); ABG TCO2 27
[2020-05-09] MEDS: DEXMEDETOMIDINE 200MCG/NS 50ML 50 ML IV PRN ×8 (01:30→22:32)
[2020-05-09] MEDS: MEROPENEM 500MG/ NS 50ML 50 ML IV SCH ×3 (02:49→18:08)
[2020-05-09 05:43] LABS: BASOPHILS # (AUTO) 0.1 (0.0-0.1); BASOPHILS % 0.3 % (0.0-1.0); EOSINOPHILS # (AUTO) 0.1 (0.0-0.4); EOSINOPHILS % 0.3 % (0.0-6.0); HEMATOCRIT 42.6 % (38.2-49.6); LYMPHOCYTES # (AUTO) 1.2 (1.0-3.2); LYMPHOCYTES % 5.1 % (18.0-39.1); MEAN CORPUSCULAR HEMOGLOBIN 30.3 pg (28-32); MEAN CORPUSCULAR HGB CONC 32.9 g/dL (31-35); MEAN CORPUSCULAR VOLUME 92.2 fL (81-99); MONOCYTES # (AUTO) 1.5 (0.2-0.8); MONOCYTES % 6.1 % (4.4-11.3); NEUTROPHILS # (AUTO) 20.7 (2.1-6.9); NEUTROPHILS % 86.7 % (38.7-80.0); PLATELET COUNT 287 x10e3/uL (140-360); RED BLOOD COUNT 4.62 x10e6/uL (4.3-5.7); RED CELL DISTRIBUTION WIDTH 12.5 % (11.7-14.4)
[2020-05-09 05:58] LABS: ALANINE AMINOTRANSFERASE 240 IU/L (0-55); ALBUMIN 1.9 g/dL (3.5-5.0); ALBUMIN/GLOBULIN RATIO 0.4 (0.8-2.0); ALKALINE PHOSPHATASE 141 IU/L (40-150); BLOOD UREA NITROGEN 26 mg/dL (7-26); BUN/CREATININE RATIO 28 (6-25); CALCIUM 7.8 mg/dL (8.4-10.2); CARBON DIOXIDE 23 mmol/L (22-29); CHLORIDE 111 mmol/L (98-107); CREATININE, SERUM 0.93 mg/dL (0.72-1.25); EST GLOMERULAR FILTRATION RATE > 60 ML/MIN (60-); GLUCOSE 154 mg/dL (74-118); SODIUM 143 mmol/L (136-145)
[2020-05-09] MEDS: ASCORBIC ACID 500 MG TAB PO SCH ×2 (09:00→16:14)
[2020-05-09] MEDS: BENZONATATE 100 MG CAP PO SCH ×3 (09:00→22:31)
[2020-05-09] MEDS: ZINC SULFATE 220 MG CAP PO SCH (09:00)
[2020-05-09] MEDS: FAMOTIDINE 20 MG/2 ML VIAL IV SCH (09:08)
[2020-05-09] MEDS: ENOXAPARIN SOD INJ 40 MG/0.4 ML SYR SC SCH ×2 (09:08→22:31)
[2020-05-09 10:44] LABS: ABG HCO3 25 mmol/L (22-26); ABG PCO2 36 mmHg (35-45); ABG PH 7.45 (7.35-7.45); ABG PO2 86 mmHg (80-105); ABG TCO2 26
[2020-05-09] MEDS ORDERED: FUROSEMIDE INJ 10 MG/ML 4 ML VIAL IV ONE (11:00)
[2020-05-09] MEDS: ONDANSETRON HCL INJ 2MG/ML 2ML 2 MG/ML VIAL IV PRN (18:08)
[2020-05-09] MEDS ORDERED: CENTRAL TPN FORMULA 1 BAG IV SCH (20:00)
[2020-05-10] VITALS (26 sets, daily range): BP systolic 90–110; BP diastolic 57–77
[2020-05-10] MEDS: ALBUTEROL SULFATE HFA 8GM INHALATION AEROSOL INH SCH ×4 (01:00→19:00)
[2020-05-10] MEDS: VANCOMYCIN HCL 1.25 GM in SODIUM CHLORIDE 0.9% 250ML 250 ML IV SCH ×2 (01:13→13:53)
[2020-05-10] MEDS: MEROPENEM 500MG/ NS 50ML 50 ML IV SCH ×3 (01:13→18:30)
[2020-05-10] MEDS: ONDANSETRON HCL INJ 2MG/ML 2ML 2 MG/ML VIAL IV PRN (04:05)
[2020-05-10] MEDS: MORPHINE SULFATE INJ 2 MG/ML SYR IV PRN (04:05)
[2020-05-10 06:39] LABS: BASOPHILS % 0.3 % (0.0-1.0); EOSINOPHILS # (AUTO) 0.3 (0.0-0.4); EOSINOPHILS % 2.1 % (0.0-6.0); HEMOGLOBIN 12.5 g/dL (14.0-18.0); LYMPHOCYTES # (AUTO) 1.1 (1.0-3.2); LYMPHOCYTES % 6.8 % (18.0-39.1); MEAN CORPUSCULAR HEMOGLOBIN 30.4 pg (28-32); MEAN CORPUSCULAR HGB CONC 32.1 g/dL (31-35); MEAN CORPUSCULAR VOLUME 94.9 fL (81-99); MONOCYTES # (AUTO) 1.1 (0.2-0.8); MONOCYTES % 6.8 % (4.4-11.3); NEUTROPHILS # (AUTO) 13.2 (2.1-6.9); NEUTROPHILS % 82.9 % (38.7-80.0); PLATELET COUNT 230 x10e3/uL (140-360); RED BLOOD COUNT 4.11 x10e6/uL (4.3-5.7); RED CELL DISTRIBUTION WIDTH 12.7 % (11.7-14.4)
[2020-05-10 06:53] LABS: ALANINE AMINOTRANSFERASE 230 IU/L (0-55); ALBUMIN 1.7 g/dL (3.5-5.0); ALBUMIN/GLOBULIN RATIO 0.4 (0.8-2.0); ALKALINE PHOSPHATASE 116 IU/L (40-150); ANION GAP 13.5 mmol/L (8-16); BLOOD UREA NITROGEN 35 mg/dL (7-26); BUN/CREATININE RATIO 36 (6-25); CALCIUM 7.8 mg/dL (8.4-10.2); CARBON DIOXIDE 25 mmol/L (22-29); CHLORIDE 112 mmol/L (98-107); CREATININE, SERUM 0.96 mg/dL (0.72-1.25); EST GLOMERULAR FILTRATION RATE > 60 ML/MIN (60-); GLUCOSE 132 mg/dL (74-118); POTASSIUM 4.5 mmol/L (3.5-5.1); SODIUM 146 mmol/L (136-145)
[2020-05-10] MEDS: KETOROLAC TROMETHAMINE 30 MG/ML VIAL IV PRN (07:20)
[2020-05-10] MEDS: ASCORBIC ACID 500 MG TAB PO SCH ×2 (07:56→14:56)
[2020-05-10] MEDS: ZINC SULFATE 220 MG CAP PO SCH (07:56)
[2020-05-10] MEDS: BENZONATATE 100 MG CAP PO SCH ×3 (07:56→20:59)
[2020-05-10] MEDS: DEXMEDETOMIDINE 200MCG/NS 50ML 50 ML IV PRN ×5 (08:54→23:24)
[2020-05-10] MEDS: FAMOTIDINE 20 MG/2 ML VIAL IV SCH (09:21)
[2020-05-10] MEDS: ENOXAPARIN SOD INJ 40 MG/0.4 ML SYR SC SCH ×2 (09:21→21:00)
[2020-05-10] MEDS ORDERED: ETOMIDATE 2 MG/ML 10 ML INJ IV ONE (13:01)
[2020-05-10] MEDS ORDERED: SUCCINYLCHOLINE CHLORIDE 20 MG/ML 10ML VIAL ONE (13:01)
[2020-05-10] MEDS ORDERED: MIDAZOLAM HCL 2 MG/2 ML VIAL ONE (13:01)
[2020-05-10] MEDS ORDERED: FUROSEMIDE INJ 10 MG/ML 4 ML VIAL IV ONE (14:15)
[2020-05-10] MEDS: CENTRAL TPN FORMULA 1 BAG IV SCH (20:51)
[2020-05-11] VITALS (24 sets, daily range): BP systolic 82–121; BP diastolic 58–81
[2020-05-11] MEDS: KETOROLAC TROMETHAMINE 30 MG/ML VIAL IV PRN (00:05)
[2020-05-11] MEDS: VANCOMYCIN HCL 1.25 GM in SODIUM CHLORIDE 0.9% 250ML 250 ML IV SCH ×2 (00:05→18:19)
[2020-05-11] MEDS: ALBUTEROL SULFATE HFA 8GM INHALATION AEROSOL INH SCH ×4 (01:00→19:00)
[2020-05-11] MEDS: MEROPENEM 500MG/ NS 50ML 50 ML IV SCH ×3 (01:30→17:30)
[2020-05-11] MEDS: DEXMEDETOMIDINE 200MCG/NS 50ML 50 ML IV PRN ×3 (05:03→18:21)
[2020-05-11] MEDS: MORPHINE SULFATE INJ 2 MG/ML SYR IV PRN ×2 (05:35→11:35)
[2020-05-11] MEDS: ONDANSETRON HCL INJ 2MG/ML 2ML 2 MG/ML VIAL IV PRN (05:35)
[2020-05-11 06:11] LABS: BASOPHILS % 0.3 % (0.0-1.0); EOSINOPHILS # (AUTO) 0.3 (0.0-0.4); EOSINOPHILS % 1.7 % (0.0-6.0); HEMATOCRIT 39.5 % (38.2-49.6); HEMOGLOBIN 12.8 g/dL (14.0-18.0); LYMPHOCYTES % 6.4 % (18.0-39.1); MEAN CORPUSCULAR HEMOGLOBIN 30.5 pg (28-32); MEAN CORPUSCULAR HGB CONC 32.4 g/dL (31-35); MONOCYTES # (AUTO) 1.2 (0.2-0.8); NEUTROPHILS # (AUTO) 12.6 (2.1-6.9); NEUTROPHILS % 82.6 % (38.7-80.0); PLATELET COUNT 233 x10e3/uL (140-360); RED CELL DISTRIBUTION WIDTH 12.8 % (11.7-14.4)
[2020-05-11 06:38] LABS: ALANINE AMINOTRANSFERASE 208 IU/L (0-55); ALBUMIN 1.7 g/dL (3.5-5.0); ALBUMIN/GLOBULIN RATIO 0.4 (0.8-2.0); ALKALINE PHOSPHATASE 138 IU/L (40-150); BLOOD UREA NITROGEN 43 mg/dL (7-26); BUN/CREATININE RATIO 47 (6-25); CARBON DIOXIDE 24 mmol/L (22-29); CHLORIDE 115 mmol/L (98-107); CREATININE, SERUM 0.92 mg/dL (0.72-1.25); EST GLOMERULAR FILTRATION RATE > 60 ML/MIN (60-); GLUCOSE 137 mg/dL (74-118); MAGNESIUM 2.7 MG/DL (1.3-2.1); PHOSPHORUS 3.8 MG/DL (2.3-4.7); SODIUM 148 mmol/L (136-145)
[2020-05-11] MEDS: ZINC SULFATE 220 MG CAP PO SCH ×2 (09:00→09:02)
[2020-05-11] MEDS: ASCORBIC ACID 500 MG TAB PO SCH ×3 (09:00→17:00)
[2020-05-11] MEDS: BENZONATATE 100 MG CAP PO SCH ×4 (09:00→21:00)
[2020-05-11] MEDS: FAMOTIDINE 20 MG/2 ML VIAL IV SCH (09:02)
[2020-05-11] MEDS: ENOXAPARIN SOD INJ 40 MG/0.4 ML SYR SC SCH ×2 (09:02→22:05)
[2020-05-11] MEDS ORDERED: SODIUM CHLORIDE 0.9% 250ML 250 ML ONE (09:07)
[2020-05-11] MEDS ORDERED: FUROSEMIDE INJ 10 MG/ML 2 ML VIAL IV ONE (11:30)
[2020-05-11 21:29] LABS: ABG HCO3 2 mmol/L (22-26); ABG PCO2 38 mmHg (35-45); ABG PH 7.45 (7.35-7.45); ABG PO2 51 mmHg (80-105)
[2020-05-11 21:30] LABS: ABG TCO2 27
[2020-05-11] MEDS: CENTRAL TPN FORMULA 1 BAG IV SCH (22:05)
[2020-05-12] VITALS (24 sets, daily range): BP systolic 96–156; BP diastolic 63–95
[2020-05-12] MEDS: ALBUTEROL SULFATE HFA 8GM INHALATION AEROSOL INH SCH ×4 (01:00→19:00)
[2020-05-12] MEDS: DEXMEDETOMIDINE 200MCG/NS 50ML 50 ML IV PRN ×5 (01:30→18:22)
[2020-05-12] MEDS: VANCOMYCIN HCL 1.25 GM in SODIUM CHLORIDE 0.9% 250ML 250 ML IV SCH ×2 (01:45→12:05)
[2020-05-12] MEDS: MORPHINE SULFATE INJ 2 MG/ML SYR IV PRN (02:00)
[2020-05-12] MEDS: ONDANSETRON HCL INJ 2MG/ML 2ML 2 MG/ML VIAL IV PRN (02:00)
[2020-05-12] MEDS: MEROPENEM 500MG/ NS 50ML 50 ML IV SCH ×3 (03:01→18:22)
[2020-05-12 05:44] LABS: BASOPHILS % 0.2 % (0.0-1.0); EOSINOPHILS # (AUTO) 0.3 (0.0-0.4); EOSINOPHILS % 1.9 % (0.0-6.0); HEMATOCRIT 39.3 % (38.2-49.6); HEMOGLOBIN 12.5 g/dL (14.0-18.0); LYMPHOCYTES # (AUTO) 0.9 (1.0-3.2); LYMPHOCYTES % 6.3 % (18.0-39.1); MEAN CORPUSCULAR HEMOGLOBIN 30.3 pg (28-32); MEAN CORPUSCULAR HGB CONC 31.8 g/dL (31-35); MEAN CORPUSCULAR VOLUME 95.4 fL (81-99); MONOCYTES # (AUTO) 0.9 (0.2-0.8); MONOCYTES % 6.4 % (4.4-11.3); NEUTROPHILS # (AUTO) 12.2 (2.1-6.9); NEUTROPHILS % 84.4 % (38.7-80.0); PLATELET COUNT 257 x10e3/uL (140-360); RED BLOOD COUNT 4.12 x10e6/uL (4.3-5.7)
[2020-05-12 05:45] LABS: ALANINE AMINOTRANSFERASE 237 IU/L (0-55); ALBUMIN 1.7 g/dL (3.5-5.0); ALBUMIN/GLOBULIN RATIO 0.4 (0.8-2.0); ALKALINE PHOSPHATASE 149 IU/L (40-150); ANION GAP 13.2 mmol/L (8-16); BLOOD UREA NITROGEN 39 mg/dL (7-26); BUN/CREATININE RATIO 38 (6-25); CALCIUM 7.9 mg/dL (8.4-10.2); CARBON DIOXIDE 26 mmol/L (22-29); CHLORIDE 117 mmol/L (98-107); CREATININE, SERUM 1.02 mg/dL (0.72-1.25); EST GLOMERULAR FILTRATION RATE > 60 ML/MIN (60-); GLUCOSE 131 mg/dL (74-118); POTASSIUM 4.2 mmol/L (3.5-5.1); SODIUM 152 mmol/L (136-145)
[2020-05-12 08:10] LABS: ABG HCO3 25 mmol/L (22-26); ABG PCO2 40 mmHg (35-45); ABG PO2 62 mmHg (80-105); ABG TCO2 26
[2020-05-12] MEDS: ASCORBIC ACID 500 MG TAB PO SCH ×2 (09:00→14:03)
[2020-05-12] MEDS: BENZONATATE 100 MG CAP PO SCH ×3 (09:00→21:00)
[2020-05-12] MEDS: ZINC SULFATE 220 MG CAP PO SCH (09:00)
[2020-05-12] MEDS: FAMOTIDINE 20 MG/2 ML VIAL IV SCH (09:30)
[2020-05-12] MEDS: ENOXAPARIN SOD INJ 40 MG/0.4 ML SYR SC SCH (09:30)
[2020-05-12] MEDS ORDERED: DEXTROSE 5% 1,000 ML IV ONE (11:45)
[2020-05-12] MEDS ORDERED: CENTRAL TPN FORMULA 1 BAG IV SCH (20:00)
[2020-05-12] MEDS ORDERED: FENTANYL 2000MCG/NS 250 250 ML ONE ×2 (22:12→22:25)
[2020-05-12] MEDS ORDERED: MIDAZOLAM HCL 5MG/ML 10ML VIAL 100 ML IV ONE (22:13)
[2020-05-12] MEDS ORDERED: FENTANYL CITRATE/PF 100MCG/2 ML INJ ONE (22:29)
[2020-05-12] MEDS ORDERED: ROCURONIUM BROMIDE 1 ML IV ONE ×4 (22:32→23:50)
[2020-05-12] MEDS ORDERED: ROCURONIUM BROMIDE 250 ML IV ONE (22:56)
[2020-05-12 23:23] LABS: ABG HCO3 30 mmol/L (22-26); ABG PCO2 105 mmHg (35-45); ABG PH 7.06 (7.35-7.45); ABG PO2 100 mmHg (80-105); ABG TCO2 33
[2020-05-12] MEDS ORDERED: FENTANYL CITRATE INJ 2,000 MCG in SODIUM CHLORIDE 0.9% 250ML 210 ML IV PRN (23:30)
[2020-05-12] MEDS ORDERED: MIDAZOLAM HCL 50 MG in SODIUM CHLORIDE 0.9% 100 ML 90 ML IV PRN (23:30)
[2020-05-13] VITALS (24 sets, daily range): BP systolic 80–126; BP diastolic 50–80
[2020-05-13] MEDS: ALBUTEROL SULFATE HFA 8GM INHALATION AEROSOL INH SCH ×4 (01:00→19:00)
[2020-05-13 01:51] LABS: ABG HCO3 28 mmol/L (22-26); ABG PCO2 87 mmHg (35-45); ABG PH 7.11 (7.35-7.45); ABG PO2 96 mmHg (80-105); ABG TCO2 31
[2020-05-13] MEDS: VANCOMYCIN HCL 1.25 GM in SODIUM CHLORIDE 0.9% 250ML 250 ML IV SCH ×2 (03:00→13:00)
[2020-05-13] MEDS ORDERED: LACTATED RINGER'S 2,000 ML INJ ONE (03:45)
[2020-05-13] MEDS: MEROPENEM 500MG/ NS 50ML 50 ML IV SCH ×3 (04:00→18:17)
[2020-05-13 05:33] LABS: ABG HCO3 26 mmol/L (22-26); ABG PCO2 67 mmHg (35-45); ABG PO2 141 mmHg (80-105); ABG TCO2 28
[2020-05-13 05:40] LABS: BASOPHILS # (AUTO) 0.1 (0.0-0.1); BASOPHILS % 0.3 % (0.0-1.0); EOSINOPHILS # (AUTO) 0.1 (0.0-0.4); EOSINOPHILS % 0.2 % (0.0-6.0); HEMATOCRIT 39.6 % (38.2-49.6); HEMOGLOBIN 12.2 g/dL (14.0-18.0); LYMPHOCYTES # (AUTO) 1.1 (1.0-3.2); LYMPHOCYTES % 4.8 % (18.0-39.1); MEAN CORPUSCULAR HGB CONC 30.8 g/dL (31-35); MEAN CORPUSCULAR VOLUME 100.5 fL (81-99); MONOCYTES # (AUTO) 1.9 (0.2-0.8); NEUTROPHILS # (AUTO) 19.4 (2.1-6.9); NEUTROPHILS % 83.9 % (38.7-80.0); PLATELET COUNT 282 x10e3/uL (140-360); RED BLOOD COUNT 3.94 x10e6/uL (4.3-5.7); RED CELL DISTRIBUTION WIDTH 13.4 % (11.7-14.4)
[2020-05-13] MEDS ORDERED: MIDAZOLAM HCL 5MG/ML 10ML VIAL 100 ML IV ONE (05:41)
[2020-05-13 06:15] LABS: ALBUMIN 1.5 g/dL (3.5-5.0); ALBUMIN/GLOBULIN RATIO 0.3 (0.8-2.0); ANION GAP 15.8 mmol/L (8-16); CALCIUM 7.5 mg/dL (8.4-10.2); POTASSIUM 4.8 mmol/L (3.5-5.1)
[2020-05-13 06:36] LABS: CREATININE, SERUM 1.84 mg/dL (0.72-1.25)
[2020-05-13] MEDS: ASCORBIC ACID 500 MG TAB PO SCH ×2 (09:09→16:01)
[2020-05-13] MEDS: BENZONATATE 100 MG CAP PO SCH ×3 (09:09→20:17)
[2020-05-13] MEDS: FAMOTIDINE 20 MG/2 ML VIAL IV SCH (09:09)
[2020-05-13] MEDS: ZINC SULFATE 220 MG CAP PO SCH (09:09)
[2020-05-13] MEDS ORDERED: LACTATED RINGER'S 1,000 ML ONE (09:16)
[2020-05-13] MEDS ORDERED: PROPOFOL IV EMULSION 10MG/ML 100 ML IV PRN (11:00)
[2020-05-13] MEDS ORDERED: PROPOFOL IV EMULSION 10MG/ML 100 ML ONE (11:16)
[2020-05-13] MEDS: MIDAZOLAM HCL 5MG/ML 10ML VIAL 100 ML IV PRN ×3 (12:11→22:05)
[2020-05-13 13:18] LABS: BASOPHILS # (AUTO) 0.1 (0.0-0.1); BASOPHILS % 0.3 % (0.0-1.0); EOSINOPHILS # (AUTO) 0.2 (0.0-0.4); HEMATOCRIT 38.1 % (38.2-49.6); HEMOGLOBIN 11.4 g/dL (14.0-18.0); LYMPHOCYTES # (AUTO) 1.1 (1.0-3.2); LYMPHOCYTES % 5.9 % (18.0-39.1); MEAN CORPUSCULAR HEMOGLOBIN 30.5 pg (28-32); MEAN CORPUSCULAR HGB CONC 29.9 g/dL (31-35); MEAN CORPUSCULAR VOLUME 101.9 fL (81-99); MONOCYTES # (AUTO) 1.4 (0.2-0.8); MONOCYTES % 7.6 % (4.4-11.3); NEUTROPHILS # (AUTO) 15.8 (2.1-6.9); NEUTROPHILS % 83.3 % (38.7-80.0); PLATELET COUNT 266 x10e3/uL (140-360); RED BLOOD COUNT 3.74 x10e6/uL (4.3-5.7); RED CELL DISTRIBUTION WIDTH 13.9 % (11.7-14.4)
[2020-05-13 13:23] LABS: ABG HCO3 28 mmol/L (22-26); ABG PCO2 83 mmHg (35-45); ABG PH 7.13 (7.35-7.45); ABG PO2 130 mmHg (80-105); ABG TCO2 30
[2020-05-13] MEDS ORDERED: WATER STERILE 10 ML VIAL IV NR (13:25)
[2020-05-13] MEDS ORDERED: VECURONIUM BROMIDE FOR INJ 20 MG VIAL IV NR (13:30)
[2020-05-13 13:35] LABS: ANION GAP 14.1 mmol/L (8-16); CALCIUM 7.2 mg/dL (8.4-10.2); CREATININE, SERUM 2.43 mg/dL (0.72-1.25); POTASSIUM 5.1 mmol/L (3.5-5.1)
[2020-05-13] MEDS ORDERED: SODIUM BICARBONATE 8.4% INJ 50 ML SYR IV NR (15:30)
[2020-05-13] MEDS ORDERED: SOD POLYSTYRENE SULFONATE SUSP 15 GM/60 ML BTL PO STA (15:35)
[2020-05-13] MEDS ORDERED: LACTULOSE SYRUP 20 GM/30 ML UDC PO NR (15:45)
[2020-05-13] MEDS: FENTANYL 2000MCG/NS 250 250 ML IV PRN ×2 (16:02→23:05)
[2020-05-13 17:52] LABS: HYPOCHROMASIA MODERATE
[2020-05-13 17:53] LABS: PLATELET ESTIMATE ADEQUATE; PLATELET MORPHOLOGY COMMENT NORMAL; RBC MORPHOLOGY COMMENT ABNORMAL
[2020-05-13] MEDS ORDERED: BUMETANIDE INJ 0.25MG/ML 4ML VIAL IV ONE (19:15)
[2020-05-13] MEDS: CISATRACURIUM BESYLATE 100 MG in SODIUM CHLORIDE 0.9% 100 ML 50 ML IV PRN (21:17)
[2020-05-14] VITALS (25 sets, daily range): BP systolic 90–121; BP diastolic 57–80
[2020-05-14] MEDS: ALBUTEROL SULFATE HFA 8GM INHALATION AEROSOL INH SCH ×4 (01:00→19:00)
[2020-05-14] MEDS: MEROPENEM 500MG/ NS 50ML 50 ML IV SCH ×3 (03:00→17:02)
[2020-05-14] MEDS: MIDAZOLAM HCL 5MG/ML 10ML VIAL 100 ML IV PRN ×3 (03:10→23:48)
[2020-05-14 05:51] LABS: BASOPHILS # (AUTO) 0.1 (0.0-0.1); BASOPHILS % 0.6 % (0.0-1.0); EOSINOPHILS # (AUTO) 0.4 (0.0-0.4); EOSINOPHILS % 2.4 % (0.0-6.0); HEMATOCRIT 37.6 % (38.2-49.6); HEMOGLOBIN 11.3 g/dL (14.0-18.0); LYMPHOCYTES # (AUTO) 0.8 (1.0-3.2); LYMPHOCYTES % 4.8 % (18.0-39.1); MEAN CORPUSCULAR HGB CONC 30.1 g/dL (31-35); MONOCYTES % 6.4 % (4.4-11.3); NEUTROPHILS # (AUTO) 13.3 (2.1-6.9); PLATELET COUNT 231 x10e3/uL (140-360); RED BLOOD COUNT 3.65 x10e6/uL (4.3-5.7)
[2020-05-14] MEDS: FENTANYL 2000MCG/NS 250 250 ML IV PRN ×2 (06:00→19:35)
[2020-05-14 06:14] LABS: ALBUMIN 1.4 g/dL (3.5-5.0); ALBUMIN/GLOBULIN RATIO 0.3 (0.8-2.0); ANION GAP 17.2 mmol/L (8-16); CALCIUM 7.1 mg/dL (8.4-10.2); CREATININE, SERUM 4.28 mg/dL (0.72-1.25); PHOSPHORUS 6.9 MG/DL (2.3-4.7); POTASSIUM 5.2 mmol/L (3.5-5.1)
[2020-05-14] MEDS: ASCORBIC ACID 500 MG TAB PO SCH ×2 (10:00→17:02)
[2020-05-14] MEDS: FAMOTIDINE 20 MG/2 ML VIAL IV SCH (10:00)
[2020-05-14] MEDS: BENZONATATE 100 MG CAP PO SCH ×3 (10:00→21:00)
[2020-05-14] MEDS: ZINC SULFATE 220 MG CAP PO SCH (10:00)
[2020-05-14] MEDS ORDERED: SODIUM CHLORIDE 0.9% 1000ML 2,000 ML ONE (11:17)
[2020-05-14] MEDS ORDERED: HEPARIN SOD (PORCINE) 1000 UNIT/ML SDV IV PRN (11:30)
[2020-05-14] MEDS ORDERED: SODIUM CHLORIDE 0.9% 1000ML 2,000 ML IV PRN (11:30)
[2020-05-14] MEDS ORDERED: MANNITOL 25% 12.5GM/50 ML VIAL IV PRN (11:30)
[2020-05-14] MEDS ORDERED: ALBUMIN 25% 12.5GM 0.25 GM/ML BTL IV PRN (11:30)
[2020-05-14] MEDS: CISATRACURIUM BESYLATE 100 MG in SODIUM CHLORIDE 0.9% 100 ML 50 ML IV PRN ×2 (17:04→23:40)
[2020-05-14 17:43] LABS: ABG HCO3 27 mmol/L (22-26); ABG PCO2 51 mmHg (35-45); ABG PH 7.34 (7.35-7.45); ABG PO2 139 mmHg (80-105); ABG TCO2 29
[2020-05-15] VITALS (25 sets, daily range): BP systolic 96–149; BP diastolic 60–81
[2020-05-15] MEDS: ALBUTEROL SULFATE HFA 8GM INHALATION AEROSOL INH SCH ×4 (01:00→19:00)
[2020-05-15] MEDS: FENTANYL 2000MCG/NS 250 250 ML IV PRN ×4 (01:46→22:05)
[2020-05-15] MEDS: MEROPENEM 500MG/ NS 50ML 50 ML IV SCH ×2 (03:00→09:04)
[2020-05-15] MEDS: MIDAZOLAM HCL 5MG/ML 10ML VIAL 100 ML IV PRN ×4 (05:00→20:30)
[2020-05-15 05:02] LABS: BASOPHILS # (AUTO) 0.1 (0.0-0.1); BASOPHILS % 0.4 % (0.0-1.0); EOSINOPHILS # (AUTO) 0.4 (0.0-0.4); EOSINOPHILS % 2.9 % (0.0-6.0); HEMATOCRIT 30.3 % (38.2-49.6); HEMOGLOBIN 9.1 g/dL (14.0-18.0); LYMPHOCYTES # (AUTO) 0.9 (1.0-3.2); LYMPHOCYTES % 6.7 % (18.0-39.1); MEAN CORPUSCULAR HEMOGLOBIN 30.5 pg (28-32); MEAN CORPUSCULAR VOLUME 101.7 fL (81-99); MONOCYTES # (AUTO) 0.9 (0.2-0.8); MONOCYTES % 6.4 % (4.4-11.3); NEUTROPHILS # (AUTO) 11.4 (2.1-6.9); NEUTROPHILS % 82.4 % (38.7-80.0); PLATELET COUNT 191 x10e3/uL (140-360); RED BLOOD COUNT 2.98 x10e6/uL (4.3-5.7); RED CELL DISTRIBUTION WIDTH 13.6 % (11.7-14.4)
[2020-05-15 05:26] LABS: ALBUMIN 1.5 g/dL (3.5-5.0); ALBUMIN/GLOBULIN RATIO 0.4 (0.8-2.0); ANION GAP 18.5 mmol/L (8-16); CALCIUM 7.7 mg/dL (8.4-10.2); POTASSIUM 4.5 mmol/L (3.5-5.1)
[2020-05-15] MEDS: CISATRACURIUM BESYLATE 100 MG in SODIUM CHLORIDE 0.9% 100 ML 50 ML IV PRN (08:30)
[2020-05-15] MEDS: BENZONATATE 100 MG CAP PO SCH (09:00)
[2020-05-15] MEDS: ZINC SULFATE 220 MG CAP PO SCH (09:03)
[2020-05-15] MEDS: ASCORBIC ACID 500 MG TAB PO SCH ×2 (09:03→16:35)
[2020-05-15] MEDS: FAMOTIDINE 20 MG/2 ML VIAL IV SCH (09:03)
[2020-05-15] MEDS: METOCLOPRAMIDE HCL 10MG/10ML UDC GT SCH ×3 (11:30→21:46)
[2020-05-15] MEDS: DEXMEDETOMIDINE 200MCG/NS 50ML 50 ML IV PRN ×2 (12:10→14:26)
[2020-05-15] MEDS ORDERED: METOPROLOL TARTRATE INJ 1 MG/ML VIAL IV ONE (13:00)
[2020-05-15 13:24] LABS: ABG HCO3 25 mmol/L (22-26); ABG PCO2 69 mmHg (35-45); ABG PH 7.17 (7.35-7.45); ABG PO2 59 mmHg (80-105)
[2020-05-15 13:25] LABS: ABG TCO2 27
[2020-05-15] MEDS: DEXTROSE 5% 1,000 ML IV SCH (17:19)
[2020-05-15] MEDS: ROCURONIUM BROMIDE 1,250 MG in SODIUM CHLORIDE 0.9% 250ML 125 ML IV PRN (19:30)
[2020-05-15] MEDS: HEPARIN SOD (PORCINE) 5,000 UNIT/ML VIAL SC SCH (21:47)
[2020-05-16] VITALS (25 sets, daily range): BP systolic 98–123; BP diastolic 64–72
[2020-05-16] MEDS: ALBUTEROL SULFATE HFA 8GM INHALATION AEROSOL INH SCH ×5 (01:00→23:53)
[2020-05-16] MEDS: MIDAZOLAM HCL 5MG/ML 10ML VIAL 100 ML IV PRN ×5 (02:10→22:51)
[2020-05-16] MEDS: DEXTROSE 5% 1,000 ML IV SCH ×2 (03:05→14:56)
[2020-05-16 05:23] LABS: BASOPHILS # (AUTO) 0.1 (0.0-0.1); BASOPHILS % 0.4 % (0.0-1.0); EOSINOPHILS # (AUTO) 0.4 (0.0-0.4); EOSINOPHILS % 3.2 % (0.0-6.0); HEMATOCRIT 29.3 % (38.2-49.6); HEMOGLOBIN 9.2 g/dL (14.0-18.0); LYMPHOCYTES # (AUTO) 0.9 (1.0-3.2); LYMPHOCYTES % 7.3 % (18.0-39.1); MEAN CORPUSCULAR HEMOGLOBIN 31.4 pg (28-32); MEAN CORPUSCULAR HGB CONC 31.4 g/dL (31-35); MONOCYTES % 7.6 % (4.4-11.3); NEUTROPHILS # (AUTO) 10.2 (2.1-6.9); NEUTROPHILS % 80.2 % (38.7-80.0); PLATELET COUNT 201 x10e3/uL (140-360); RED BLOOD COUNT 2.93 x10e6/uL (4.3-5.7); RED CELL DISTRIBUTION WIDTH 13.3 % (11.7-14.4)
[2020-05-16 05:44] LABS: ALBUMIN 1.5 g/dL (3.5-5.0); ALBUMIN/GLOBULIN RATIO 0.4 (0.8-2.0); ANION GAP 14.9 mmol/L (8-16); CALCIUM 7.5 mg/dL (8.4-10.2); CREATININE, SERUM 5.14 mg/dL (0.72-1.25); POTASSIUM 3.9 mmol/L (3.5-5.1)
[2020-05-16] MEDS: DEXMEDETOMIDINE 200MCG/NS 50ML 50 ML IV PRN (06:03)
[2020-05-16] MEDS: FENTANYL 2000MCG/NS 250 250 ML IV PRN ×3 (06:04→18:04)
[2020-05-16] MEDS: ZINC SULFATE 220 MG CAP PO SCH (09:17)
[2020-05-16] MEDS: ASCORBIC ACID 500 MG TAB PO SCH ×2 (09:17→17:13)
[2020-05-16] MEDS: METOCLOPRAMIDE HCL 10MG/10ML UDC GT SCH ×4 (09:17→20:43)
[2020-05-16] MEDS: FAMOTIDINE 20 MG/2 ML VIAL IV SCH (09:17)
[2020-05-16] MEDS: HEPARIN SOD (PORCINE) 5,000 UNIT/ML VIAL SC SCH ×2 (09:18→20:41)
[2020-05-16 11:53] LABS: ABG HCO3 31 mmol/L (22-26); ABG PCO2 58 mmHg (35-45); ABG PH 7.33 (7.35-7.45); ABG PO2 80 mmHg (80-105); ABG TCO2 33
[2020-05-17] VITALS (23 sets, daily range): BP systolic 80–147; BP diastolic 58–87
[2020-05-17] MEDS: FENTANYL 2000MCG/NS 250 250 ML IV PRN ×3 (00:50→23:30)
[2020-05-17] MEDS: MIDAZOLAM HCL 5MG/ML 10ML VIAL 100 ML IV PRN ×4 (03:19→23:30)
[2020-05-17] MEDS: DEXTROSE 5% 1,000 ML IV SCH (03:20)
[2020-05-17 05:49] LABS: BASOPHILS # (AUTO) 0.1 (0.0-0.1); BASOPHILS % 0.4 % (0.0-1.0); EOSINOPHILS # (AUTO) 0.4 (0.0-0.4); EOSINOPHILS % 2.8 % (0.0-6.0); HEMATOCRIT 32.4 % (38.2-49.6); HEMOGLOBIN 10.1 g/dL (14.0-18.0); LYMPHOCYTES # (AUTO) 0.8 (1.0-3.2); LYMPHOCYTES % 5.6 % (18.0-39.1); MEAN CORPUSCULAR HEMOGLOBIN 30.6 pg (28-32); MEAN CORPUSCULAR HGB CONC 31.2 g/dL (31-35); MEAN CORPUSCULAR VOLUME 98.2 fL (81-99); MONOCYTES # (AUTO) 1.2 (0.2-0.8); MONOCYTES % 7.8 % (4.4-11.3); NEUTROPHILS # (AUTO) 12.2 (2.1-6.9); NEUTROPHILS % 81.7 % (38.7-80.0); PLATELET COUNT 251 x10e3/uL (140-360); RED CELL DISTRIBUTION WIDTH 12.9 % (11.7-14.4)
[2020-05-17 06:16] LABS: ANION GAP 15.2 mmol/L (8-16); CALCIUM 7.7 mg/dL (8.4-10.2); CREATININE, SERUM 4.37 mg/dL (0.72-1.25); POTASSIUM 4.2 mmol/L (3.5-5.1)
[2020-05-17] MEDS: ALBUTEROL SULFATE HFA 8GM INHALATION AEROSOL INH SCH (07:00)
[2020-05-17] MEDS: METOCLOPRAMIDE HCL 10MG/10ML UDC GT SCH ×4 (07:24→21:01)
[2020-05-17 07:39] LABS: MAGNESIUM 1.8 MG/DL (1.3-2.1); PHOSPHORUS 6.8 MG/DL (2.3-4.7)
[2020-05-17] MEDS: FAMOTIDINE 20 MG/2 ML VIAL IV SCH (08:03)
[2020-05-17] MEDS: ASCORBIC ACID 500 MG TAB PO SCH ×2 (08:03→17:06)
[2020-05-17] MEDS: ZINC SULFATE 220 MG CAP PO SCH (08:03)
[2020-05-17] MEDS: HEPARIN SOD (PORCINE) 5,000 UNIT/ML VIAL SC SCH ×2 (08:29→21:05)
[2020-05-17 08:51] LABS: CREATINE KINASE MB 2.2 ng/mL (0-5.0)
[2020-05-17 13:17] LABS: ABG HCO3 29 mmol/L (22-26); ABG PCO2 65 mmHg (35-45); ABG PH 7.36 (7.35-7.45); ABG PO2 107 mmHg (80-105); ABG TCO2 31
[2020-05-17 16:34] LABS: CREATINE KINASE MB 2.2 ng/mL (0-5.0)
[2020-05-17] MEDS: DEXMEDETOMIDINE 200MCG/NS 50ML 50 ML IV PRN ×2 (18:43→23:30)
[2020-05-17] MEDS: ROCURONIUM BROMIDE 1,250 MG in SODIUM CHLORIDE 0.9% 250ML 125 ML IV PRN (23:30)
[2020-05-18] VITALS (24 sets, daily range): BP systolic 84–148; BP diastolic 54–85
[2020-05-18 00:33] LABS: CREATINE KINASE MB 1.9 ng/mL (0-5.0)
[2020-05-18] MEDS: DEXMEDETOMIDINE 200MCG/NS 50ML 50 ML IV PRN ×5 (01:56→22:50)
[2020-05-18] MEDS: MIDAZOLAM HCL 5MG/ML 10ML VIAL 100 ML IV PRN ×4 (02:55→23:40)
[2020-05-18] MEDS: FENTANYL 2000MCG/NS 250 250 ML IV PRN ×3 (04:20→19:55)
[2020-05-18 06:21] LABS: BASOPHILS # (AUTO) 0.1 (0.0-0.1); BASOPHILS % 0.5 % (0.0-1.0); EOSINOPHILS # (AUTO) 0.5 (0.0-0.4); EOSINOPHILS % 3.8 % (0.0-6.0); HEMATOCRIT 30.8 % (38.2-49.6); HEMOGLOBIN 9.8 g/dL (14.0-18.0); LYMPHOCYTES # (AUTO) 0.9 (1.0-3.2); LYMPHOCYTES % 7.1 % (18.0-39.1); MEAN CORPUSCULAR HEMOGLOBIN 31.1 pg (28-32); MEAN CORPUSCULAR HGB CONC 31.8 g/dL (31-35); MEAN CORPUSCULAR VOLUME 97.8 fL (81-99); MONOCYTES # (AUTO) 0.9 (0.2-0.8); MONOCYTES % 7.1 % (4.4-11.3); NEUTROPHILS # (AUTO) 9.9 (2.1-6.9); NEUTROPHILS % 79.9 % (38.7-80.0); PLATELET COUNT 236 x10e3/uL (140-360); RED BLOOD COUNT 3.15 x10e6/uL (4.3-5.7); RED CELL DISTRIBUTION WIDTH 12.5 % (11.7-14.4)
[2020-05-18 06:42] LABS: ALBUMIN 1.7 g/dL (3.5-5.0); ALBUMIN/GLOBULIN RATIO 0.4 (0.8-2.0); ANION GAP 14.1 mmol/L (8-16); CALCIUM 7.8 mg/dL (8.4-10.2); CREATININE, SERUM 5.86 mg/dL (0.72-1.25); POTASSIUM 4.1 mmol/L (3.5-5.1)
[2020-05-18] MEDS: METOCLOPRAMIDE HCL 10MG/10ML UDC GT SCH ×4 (07:47→21:00)
[2020-05-18] MEDS: FAMOTIDINE 20 MG/2 ML VIAL IV SCH (08:42)
[2020-05-18] MEDS: ZINC SULFATE 220 MG CAP PO SCH (08:42)
[2020-05-18] MEDS: ASCORBIC ACID 500 MG TAB PO SCH ×2 (08:42→16:19)
[2020-05-18] MEDS: HEPARIN SOD (PORCINE) 5,000 UNIT/ML VIAL SC SCH ×2 (08:49→21:00)
[2020-05-18 16:41] LABS: ABG HCO3 28 mmol/L (22-26); ABG PCO2 61 mmHg (35-45); ABG PH 7.28 (7.35-7.45); ABG PO2 68 mmHg (80-105); ABG TCO2 30
[2020-05-18] MEDS: ROCURONIUM BROMIDE 1,250 MG in SODIUM CHLORIDE 0.9% 250ML 125 ML IV PRN (18:39)
[2020-05-18] MEDS: CENTRAL TPN FORMULA 1 BAG IV SCH (20:00)
[2020-05-19] VITALS (24 sets, daily range): BP systolic 98–154; BP diastolic 64–86
[2020-05-19] MEDS: FENTANYL 2000MCG/NS 250 250 ML IV PRN ×4 (02:28→23:20)
[2020-05-19] MEDS: MIDAZOLAM HCL 5MG/ML 10ML VIAL 100 ML IV PRN ×4 (04:35→21:35)
[2020-05-19] MEDS: DEXMEDETOMIDINE 200MCG/NS 50ML 50 ML IV PRN (04:45)
[2020-05-19 05:34] LABS: BASOPHILS % 0.5 % (0.0-1.0); EOSINOPHILS # (AUTO) 0.4 (0.0-0.4); HEMATOCRIT 27.6 % (38.2-49.6); HEMOGLOBIN 8.6 g/dL (14.0-18.0); LYMPHOCYTES # (AUTO) 0.8 (1.0-3.2); LYMPHOCYTES % 9.4 % (18.0-39.1); MEAN CORPUSCULAR HEMOGLOBIN 30.4 pg (28-32); MEAN CORPUSCULAR HGB CONC 31.2 g/dL (31-35); MEAN CORPUSCULAR VOLUME 97.5 fL (81-99); MONOCYTES # (AUTO) 0.8 (0.2-0.8); MONOCYTES % 8.6 % (4.4-11.3); NEUTROPHILS # (AUTO) 6.7 (2.1-6.9); PLATELET COUNT 213 x10e3/uL (140-360); RED BLOOD COUNT 2.83 x10e6/uL (4.3-5.7); RED CELL DISTRIBUTION WIDTH 12.7 % (11.7-14.4)
[2020-05-19 06:00] LABS: ALBUMIN 1.6 g/dL (3.5-5.0); ALBUMIN/GLOBULIN RATIO 0.4 (0.8-2.0); ANION GAP 13.3 mmol/L (8-16); CALCIUM 7.6 mg/dL (8.4-10.2); POTASSIUM 4.3 mmol/L (3.5-5.1)
[2020-05-19] MEDS: METOCLOPRAMIDE HCL 10MG/10ML UDC GT SCH ×4 (07:30→21:30)
[2020-05-19] MEDS: ZINC SULFATE 220 MG CAP PO SCH (08:40)
[2020-05-19] MEDS: FAMOTIDINE 20 MG/2 ML VIAL IV SCH (08:40)
[2020-05-19] MEDS: BALSAM PERU/CASTOR OIL 60 GM OINT...G. TP SCH (08:40)
[2020-05-19] MEDS: ASCORBIC ACID 500 MG TAB PO SCH ×2 (08:40→16:57)
[2020-05-19] MEDS: HEPARIN SOD (PORCINE) 5,000 UNIT/ML VIAL SC SCH ×2 (08:40→21:30)
[2020-05-19] MEDS: DEXMEDETOMIDINE HCL 200 MCG in SODIUM CHLORIDE 0.9% 50ML 48 ML IV PRN ×3 (11:23→23:20)
[2020-05-19] MEDS: CENTRAL TPN FORMULA 1 BAG IV SCH (20:05)
[2020-05-20] VITALS (24 sets, daily range): BP systolic 99–142; BP diastolic 59–84
[2020-05-20] MEDS: MIDAZOLAM HCL 5MG/ML 10ML VIAL 100 ML IV PRN ×4 (03:00→20:22)
[2020-05-20 04:21] LABS: ABG HCO3 26 mmol/L (22-26); ABG PCO2 70 mmHg (35-45); ABG PH 7.18 (7.35-7.45); ABG PO2 63 mmHg (80-105); ABG TCO2 28
[2020-05-20] MEDS: FENTANYL 2000MCG/NS 250 250 ML IV PRN ×3 (05:49→19:30)
[2020-05-20 06:17] LABS: BASOPHILS % 0.3 % (0.0-1.0); EOSINOPHILS # (AUTO) 0.4 (0.0-0.4); EOSINOPHILS % 3.7 % (0.0-6.0); HEMATOCRIT 26.3 % (38.2-49.6); HEMOGLOBIN 8.3 g/dL (14.0-18.0); LYMPHOCYTES # (AUTO) 0.7 (1.0-3.2); LYMPHOCYTES % 6.8 % (18.0-39.1); MEAN CORPUSCULAR HEMOGLOBIN 30.9 pg (28-32); MEAN CORPUSCULAR HGB CONC 31.6 g/dL (31-35); MEAN CORPUSCULAR VOLUME 97.8 fL (81-99); MONOCYTES # (AUTO) 1.1 (0.2-0.8); MONOCYTES % 11.1 % (4.4-11.3); NEUTROPHILS # (AUTO) 7.5 (2.1-6.9); PLATELET COUNT 235 x10e3/uL (140-360); RED BLOOD COUNT 2.69 x10e6/uL (4.3-5.7); RED CELL DISTRIBUTION WIDTH 12.6 % (11.7-14.4)
[2020-05-20 06:49] LABS: ANION GAP 15.4 mmol/L (8-16); CALCIUM 7.6 mg/dL (8.4-10.2); CREATININE, SERUM 6.45 mg/dL (0.72-1.25); POTASSIUM 4.4 mmol/L (3.5-5.1)
[2020-05-20] MEDS: FAMOTIDINE 20 MG/2 ML VIAL IV SCH (08:04)
[2020-05-20] MEDS: ZINC SULFATE 220 MG CAP PO SCH (08:04)
[2020-05-20] MEDS: ASCORBIC ACID 500 MG TAB PO SCH ×2 (08:04→17:00)
[2020-05-20] MEDS: METOCLOPRAMIDE HCL 10MG/10ML UDC GT SCH ×4 (08:04→21:17)
[2020-05-20] MEDS: BALSAM PERU/CASTOR OIL 60 GM OINT...G. TP SCH (08:04)
[2020-05-20] MEDS: HEPARIN SOD (PORCINE) 5,000 UNIT/ML VIAL SC SCH ×2 (08:05→21:17)
[2020-05-20 08:18] LABS: ABG HCO3 25 mmol/L (22-26); ABG PCO2 64 mmHg (35-45); ABG PH 7.21 (7.35-7.45); ABG PO2 92 mmHg (80-105); ABG TCO2 27
[2020-05-20] MEDS: DEXMEDETOMIDINE HCL 200 MCG in SODIUM CHLORIDE 0.9% 50ML 48 ML IV PRN ×2 (13:20→20:34)
[2020-05-20] MEDS: CENTRAL TPN FORMULA 1 BAG IV SCH (20:14)
[2020-05-20] MEDS ORDERED: DEXMEDETOMIDINE 200MCG/NS 50ML 50 ML IV ONE (20:37)
[2020-05-20] MEDS ORDERED: METOCLOPRAMIDE HCL 10 MG/2ML VIAL ONE (21:22)
[2020-05-21] VITALS (24 sets, daily range): BP systolic 111–166; BP diastolic 62–89
[2020-05-21] MEDS: MIDAZOLAM HCL 5MG/ML 10ML VIAL 100 ML IV PRN (00:30)
[2020-05-21] MEDS ORDERED: DEXMEDETOMIDINE 200MCG/NS 50ML 50 ML IV ONE (01:09)
[2020-05-21] MEDS: FENTANYL 2000MCG/NS 250 250 ML IV PRN ×2 (02:16→22:43)
[2020-05-21 05:34] LABS: BASOPHILS # (AUTO) 0.1 (0.0-0.1); BASOPHILS % 0.7 % (0.0-1.0); EOSINOPHILS # (AUTO) 0.4 (0.0-0.4); EOSINOPHILS % 2.3 % (0.0-6.0); HEMATOCRIT 30.1 % (38.2-49.6); HEMOGLOBIN 9.2 g/dL (14.0-18.0); LYMPHOCYTES # (AUTO) 0.8 (1.0-3.2); LYMPHOCYTES % 5.1 % (18.0-39.1); MEAN CORPUSCULAR HEMOGLOBIN 30.2 pg (28-32); MEAN CORPUSCULAR HGB CONC 30.6 g/dL (31-35); MEAN CORPUSCULAR VOLUME 98.7 fL (81-99); MONOCYTES # (AUTO) 1.2 (0.2-0.8); NEUTROPHILS % 80.2 % (38.7-80.0); PLATELET COUNT 361 x10e3/uL (140-360); RED BLOOD COUNT 3.05 x10e6/uL (4.3-5.7); RED CELL DISTRIBUTION WIDTH 12.8 % (11.7-14.4)
[2020-05-21 06:01] LABS: ANION GAP 15.5 mmol/L (8-16); CREATININE, SERUM 5.05 mg/dL (0.72-1.25); POTASSIUM 4.5 mmol/L (3.5-5.1)
[2020-05-21] MEDS: METOCLOPRAMIDE HCL 10MG/10ML UDC GT SCH ×4 (09:05→21:38)
[2020-05-21] MEDS: FAMOTIDINE 20 MG/2 ML VIAL IV SCH (09:05)
[2020-05-21] MEDS: ZINC SULFATE 220 MG CAP PO SCH (09:05)
[2020-05-21] MEDS: ASCORBIC ACID 500 MG TAB PO SCH ×2 (09:05→16:31)
[2020-05-21] MEDS: HEPARIN SOD (PORCINE) 5,000 UNIT/ML VIAL SC SCH ×2 (09:06→21:38)
[2020-05-21] MEDS: BALSAM PERU/CASTOR OIL 60 GM OINT...G. TP SCH (09:06)
[2020-05-21] MEDS ORDERED: MIDAZOLAM HCL 5MG/ML 10ML VIAL 100 ML IV ONE (11:41)
[2020-05-21 13:14] LABS: ABG HCO3 28 mmol/L (22-26); ABG PCO2 87 mmHg (35-45); ABG PH 7.11 (7.35-7.45); ABG PO2 72 mmHg (80-105); ABG TCO2 30
[2020-05-21] MEDS: CENTRAL TPN FORMULA 1 BAG IV SCH (20:33)
[2020-05-21] MEDS: ROCURONIUM BROMIDE 1,250 MG in SODIUM CHLORIDE 0.9% 250ML 125 ML IV PRN (21:39)
[2020-05-22] VITALS (24 sets, daily range): BP systolic 83–160; BP diastolic 49–80
[2020-05-22] MEDS ORDERED: HYDRALAZINE HCL 20 MG/ML VIAL IV PRN
[2020-05-22] MEDS ORDERED: HYDRALAZINE HCL 20 MG/ML VIAL ONE (00:02)
[2020-05-22] MEDS: MIDAZOLAM HCL 5MG/ML 10ML VIAL 100 ML IV PRN ×4 (04:00→19:45)
[2020-05-22] MEDS: FENTANYL 2000MCG/NS 250 250 ML IV PRN ×3 (04:45→17:53)
[2020-05-22 04:52] LABS: BASOPHILS # (AUTO) 0.1 (0.0-0.1); BASOPHILS % 0.6 % (0.0-1.0); EOSINOPHILS % 0.3 % (0.0-6.0); HEMATOCRIT 29.4 % (38.2-49.6); HEMOGLOBIN 8.8 g/dL (14.0-18.0); LYMPHOCYTES # (AUTO) 0.6 (1.0-3.2); LYMPHOCYTES % 3.9 % (18.0-39.1); MEAN CORPUSCULAR HEMOGLOBIN 29.7 pg (28-32); MEAN CORPUSCULAR HGB CONC 29.9 g/dL (31-35); MEAN CORPUSCULAR VOLUME 99.3 fL (81-99); MONOCYTES # (AUTO) 1.2 (0.2-0.8); MONOCYTES % 8.3 % (4.4-11.3); NEUTROPHILS # (AUTO) 12.3 (2.1-6.9); NEUTROPHILS % 82.4 % (38.7-80.0); PLATELET COUNT 323 x10e3/uL (140-360); RED BLOOD COUNT 2.96 x10e6/uL (4.3-5.7); RED CELL DISTRIBUTION WIDTH 12.8 % (11.7-14.4)
[2020-05-22 05:10] LABS: MAGNESIUM 2.8 MG/DL (1.3-2.1)
[2020-05-22 05:17] LABS: ALBUMIN/GLOBULIN RATIO 0.4 (0.8-2.0); CALCIUM 8.1 mg/dL (8.4-10.2); CREATININE, SERUM 6.65 mg/dL (0.72-1.25)
[2020-05-22] MEDS: ACETAMINOPHEN 325 MG TAB PO PRN (05:48)
[2020-05-22] MEDS: BALSAM PERU/CASTOR OIL 60 GM OINT...G. TP SCH (08:50)
[2020-05-22] MEDS: METOCLOPRAMIDE HCL 10MG/10ML UDC GT SCH ×4 (08:50→21:05)
[2020-05-22] MEDS: ASCORBIC ACID 500 MG TAB PO SCH ×2 (08:50→17:52)
[2020-05-22] MEDS: HEPARIN SOD (PORCINE) 5,000 UNIT/ML VIAL SC SCH (08:50)
[2020-05-22] MEDS: ZINC SULFATE 220 MG CAP PO SCH (08:50)
[2020-05-22] MEDS: PROPOFOL IV EMULSION 10MG/ML 100 ML IV SCH (09:53)
[2020-05-22] MEDS: ROCURONIUM BROMIDE 1,250 MG in SODIUM CHLORIDE 0.9% 250ML 125 ML IV SCH (11:20)
[2020-05-22 11:23] LABS: ABG HCO3 25 mmol/L (22-26); ABG PCO2 95 mmHg (35-45); ABG PH 7.03 (7.35-7.45); ABG PO2 66 mmHg (80-105); ABG TCO2 28
[2020-05-22] MEDS ORDERED: NOREPINEPHRINE 8 MG/D5W 250 ML 250 ML ONE (16:28)
[2020-05-22] MEDS: NOREPINEPHRINE 8 MG/D5W 250 ML 250 ML IV SCH (16:30)
[2020-05-22] MEDS ORDERED: HEPARIN SOD (PORCINE) 1000 UNIT/ML SDV ONE (17:42)
[2020-05-23] VITALS (26 sets, daily range): BP systolic 100–140; BP diastolic 53–88
[2020-05-23] MEDS: FENTANYL 2000MCG/NS 250 250 ML IV PRN ×4 (01:14→23:10)
[2020-05-23] MEDS: MIDAZOLAM HCL 5MG/ML 10ML VIAL 100 ML IV PRN ×5 (01:15→23:55)
[2020-05-23 05:59] LABS: BASOPHILS # (AUTO) 0.1 (0.0-0.1); BASOPHILS % 0.7 % (0.0-1.0); EOSINOPHILS # (AUTO) 0.2 (0.0-0.4); EOSINOPHILS % 1.1 % (0.0-6.0); HEMATOCRIT 27.6 % (38.2-49.6); HEMOGLOBIN 8.6 g/dL (14.0-18.0); LYMPHOCYTES # (AUTO) 0.8 (1.0-3.2); LYMPHOCYTES % 5.3 % (18.0-39.1); MEAN CORPUSCULAR HEMOGLOBIN 31.2 pg (28-32); MEAN CORPUSCULAR HGB CONC 31.2 g/dL (31-35); MONOCYTES # (AUTO) 1.6 (0.2-0.8); MONOCYTES % 10.4 % (4.4-11.3); NEUTROPHILS # (AUTO) 11.6 (2.1-6.9); NEUTROPHILS % 75.8 % (38.7-80.0); PLATELET COUNT 301 x10e3/uL (140-360); RED BLOOD COUNT 2.76 x10e6/uL (4.3-5.7); RED CELL DISTRIBUTION WIDTH 13.2 % (11.7-14.4)
[2020-05-23 06:27] LABS: ALBUMIN 2.4 g/dL (3.5-5.0); ALBUMIN/GLOBULIN RATIO 0.6 (0.8-2.0); ANION GAP 14.9 mmol/L (8-16); CREATININE, SERUM 5.09 mg/dL (0.72-1.25); POTASSIUM 4.9 mmol/L (3.5-5.1)
[2020-05-23] MEDS: METOCLOPRAMIDE HCL 10MG/10ML UDC GT SCH ×4 (08:17→20:54)
[2020-05-23] MEDS: BALSAM PERU/CASTOR OIL 60 GM OINT...G. TP SCH (08:18)
[2020-05-23] MEDS: ZINC SULFATE 220 MG CAP PO SCH (08:18)
[2020-05-23] MEDS: ASCORBIC ACID 500 MG TAB PO SCH ×2 (08:18→16:24)
[2020-05-23 08:41] LABS: ABG HCO3 29 mmol/L (22-26); ABG PCO2 69 mmHg (35-45); ABG PH 7.23 (7.35-7.45); ABG PO2 130 mmHg (80-105); ABG TCO2 31
[2020-05-23] MEDS: PROPOFOL IV EMULSION 10MG/ML 100 ML IV SCH (09:45)
[2020-05-23] MEDS: ROCURONIUM BROMIDE 1,250 MG in SODIUM CHLORIDE 0.9% 250ML 125 ML IV SCH ×2 (11:15→15:56)
[2020-05-23] MEDS: NOREPINEPHRINE 8 MG/D5W 250 ML 250 ML IV SCH (16:25)
[2020-05-23] MEDS: ENOXAPARIN 30 MG/0.3 ML SYR SC SCH (16:25)
[2020-05-23] MEDS ORDERED: MANNITOL 25% 12.5GM/50 ML VIAL IV PRN (17:15)
[2020-05-23] MEDS ORDERED: SODIUM CHLORIDE 0.9% 1000ML 2,000 ML IV PRN (17:15)
[2020-05-23] MEDS ORDERED: SODIUM CHLORIDE 0.9% 250ML 500 ML IV PRN (17:15)
[2020-05-23] MEDS ORDERED: HEPARIN SOD (PORCINE) 1000 UNIT/ML SDV ONE (21:59)
[2020-05-23] MEDS: HEPARIN SOD (PORCINE) 1000 UNIT/ML SDV IV PRN (22:30)
[2020-05-24] VITALS (23 sets, daily range): BP systolic 99–144; BP diastolic 64–91
[2020-05-24 03:48] LABS: BASOPHILS # (AUTO) 0.1 (0.0-0.1); BASOPHILS % 0.7 % (0.0-1.0); EOSINOPHILS # (AUTO) 0.2 (0.0-0.4); EOSINOPHILS % 1.5 % (0.0-6.0); HEMATOCRIT 27.9 % (38.2-49.6); HEMOGLOBIN 8.4 g/dL (14.0-18.0); LYMPHOCYTES # (AUTO) 0.7 (1.0-3.2); MEAN CORPUSCULAR HEMOGLOBIN 29.8 pg (28-32); MEAN CORPUSCULAR HGB CONC 30.1 g/dL (31-35); MEAN CORPUSCULAR VOLUME 98.9 fL (81-99); MONOCYTES # (AUTO) 1.4 (0.2-0.8); MONOCYTES % 10.3 % (4.4-11.3); NEUTROPHILS # (AUTO) 10.8 (2.1-6.9); NEUTROPHILS % 78.9 % (38.7-80.0); PLATELET COUNT 317 x10e3/uL (140-360); RED BLOOD COUNT 2.82 x10e6/uL (4.3-5.7); RED CELL DISTRIBUTION WIDTH 13.1 % (11.7-14.4)
[2020-05-24 04:09] LABS: ALBUMIN 2.2 g/dL (3.5-5.0); ALBUMIN/GLOBULIN RATIO 0.5 (0.8-2.0); ANION GAP 13.3 mmol/L (8-16); CALCIUM 8.3 mg/dL (8.4-10.2); CREATININE, SERUM 3.74 mg/dL (0.72-1.25); POTASSIUM 4.3 mmol/L (3.5-5.1)
[2020-05-24 04:23] LABS: MAGNESIUM 2.1 MG/DL (1.3-2.1)
[2020-05-24] MEDS: MIDAZOLAM HCL 5MG/ML 10ML VIAL 100 ML IV PRN ×4 (05:58→23:57)
[2020-05-24] MEDS: FENTANYL 2000MCG/NS 250 250 ML IV PRN ×3 (06:17→21:18)
[2020-05-24] MEDS: ASCORBIC ACID 500 MG TAB PO SCH ×2 (09:16→16:37)
[2020-05-24] MEDS: BALSAM PERU/CASTOR OIL 60 GM OINT...G. TP SCH (09:16)
[2020-05-24] MEDS: ZINC SULFATE 220 MG CAP PO SCH (09:16)
[2020-05-24] MEDS: METOCLOPRAMIDE HCL 10MG/10ML UDC GT SCH ×4 (09:16→21:00)
[2020-05-24] MEDS: PROPOFOL IV EMULSION 10MG/ML 100 ML IV SCH (09:17)
[2020-05-24] MEDS ORDERED: HEPARIN SOD (PORCINE) 1000 UNIT/ML SDV IV PRN (12:30)
[2020-05-24] MEDS: NOREPINEPHRINE 8 MG/D5W 250 ML 250 ML IV SCH (15:43)
[2020-05-24] MEDS: ENOXAPARIN 30 MG/0.3 ML SYR SC SCH (16:37)
[2020-05-24 20:34] LABS: ABG HCO3 32 mmol/L (22-26); ABG PCO2 84 mmHg (35-45); ABG PO2 75 mmHg (80-105); ABG TCO2 35
[2020-05-25] VITALS (24 sets, daily range): BP systolic 93–153; BP diastolic 48–94
[2020-05-25] MEDS: ROCURONIUM BROMIDE 1,250 MG in SODIUM CHLORIDE 0.9% 250ML 125 ML IV SCH (03:45)
[2020-05-25] MEDS: FENTANYL 2000MCG/NS 250 250 ML IV PRN ×4 (03:45→18:18)
[2020-05-25] MEDS: MIDAZOLAM HCL 5MG/ML 10ML VIAL 100 ML IV PRN ×3 (03:45→16:16)
[2020-05-25 06:42] LABS: ABG PH 7.01 (7.35-7.45)
[2020-05-25 06:43] LABS: ABG HCO3 31 mmol/L (22-26); ABG PCO2 106 mmHg (35-45); ABG PO2 84 mmHg (80-105); ABG TCO2 34
[2020-05-25] MEDS ORDERED: SODIUM BICARBONATE 8.4% INJ 50 ML SYR IV STA (07:24)
[2020-05-25] MEDS: NOREPINEPHRINE 8 MG/D5W 250 ML 250 ML IV SCH (07:30)
[2020-05-25] MEDS: SODIUM BICARBONATE 8.4% 150 ML in DEXTROSE 5% 1,000 ML IV SCH (09:06)
[2020-05-25] MEDS: ASCORBIC ACID 500 MG TAB PO SCH ×2 (09:06→17:12)
[2020-05-25] MEDS: METOCLOPRAMIDE HCL 10MG/10ML UDC GT SCH ×4 (09:06→21:50)
[2020-05-25] MEDS: BALSAM PERU/CASTOR OIL 60 GM OINT...G. TP SCH (09:07)
[2020-05-25] MEDS: ZINC SULFATE 220 MG CAP PO SCH (09:07)
[2020-05-25] MEDS: PROPOFOL IV EMULSION 10MG/ML 100 ML IV SCH (09:07)
[2020-05-25 09:27] LABS: BASOPHILS # (AUTO) 0.2 (0.0-0.1); BASOPHILS % 0.4 % (0.0-1.0); HEMATOCRIT 26.8 % (38.2-49.6); HEMOGLOBIN 8.3 g/dL (14.0-18.0); LYMPHOCYTES # (AUTO) 0.3 (1.0-3.2); LYMPHOCYTES % 0.9 % (18.0-39.1); MEAN CORPUSCULAR HEMOGLOBIN 30.5 pg (28-32); MEAN CORPUSCULAR VOLUME 98.5 fL (81-99); MONOCYTES # (AUTO) 2.4 (0.2-0.8); MONOCYTES % 6.5 % (4.4-11.3); NEUTROPHILS # (AUTO) 33.2 (2.1-6.9); NEUTROPHILS % 88.6 % (38.7-80.0); PLATELET COUNT 347 x10e3/uL (140-360); RED BLOOD COUNT 2.72 x10e6/uL (4.3-5.7); RED CELL DISTRIBUTION WIDTH 13.2 % (11.7-14.4)
[2020-05-25] MEDS ORDERED: SODIUM CHLORIDE 0.9% 1000ML 2,000 ML ONE (09:29)
[2020-05-25 09:41] LABS: ANION GAP 13.9 mmol/L (8-16); CALCIUM 8.6 mg/dL (8.4-10.2); CREATININE, SERUM 4.2 mg/dL (0.72-1.25); POTASSIUM 3.9 mmol/L (3.5-5.1)
[2020-05-25 11:09] LABS: BAND NEUTROPHILS % (MANUAL) 2 %; LYMPHOCYTES % (MANUAL) 1 % (19-48); MONOCYTES % (MANUAL) 5 % (3.4-9.0); NEUTROPHILS % (MANUAL) 92 % (40-74)
[2020-05-25 11:10] LABS: PLATELET ESTIMATE ADEQUATE; PLATELET MORPHOLOGY COMMENT NORMAL; RBC MORPHOLOGY COMMENT NORMAL
[2020-05-25] MEDS ORDERED: MEROPENEM 1GM 100 ML IV SCH (14:00)
[2020-05-25 15:47] LABS: ABG HCO3 32 mmol/L (22-26); ABG PCO2 62 mmHg (35-45); ABG PH 7.32 (7.35-7.45); ABG PO2 81 mmHg (80-105); ABG TCO2 34
[2020-05-25] MEDS ORDERED: MIDAZOLAM HCL 5MG/ML 10ML VIAL 100 ML IV ONE (16:21)
[2020-05-25] MEDS ORDERED: CEFEPIME HCL 1 GM VIAL IV SCH (17:00)
[2020-05-25] MEDS: ENOXAPARIN 30 MG/0.3 ML SYR SC SCH (17:12)
[2020-05-25] MEDS ORDERED: DIATRIZOATE MEGL/DIATRIZOA SOD 30 ML BTL PO ONE (17:36)
[2020-05-25] MEDS: METRONIDAZOLE 250MG/NS 50ML 50 ML IV SCH (18:00)
[2020-05-25 20:49] LABS: BASOPHILS # (AUTO) 0.1 (0.0-0.1); BASOPHILS % 0.4 % (0.0-1.0); EOSINOPHILS # (AUTO) 0.1 (0.0-0.4); EOSINOPHILS % 0.4 % (0.0-6.0); HEMATOCRIT 23.3 % (38.2-49.6); HEMOGLOBIN 7.3 g/dL (14.0-18.0); LYMPHOCYTES # (AUTO) 0.8 (1.0-3.2); MEAN CORPUSCULAR HEMOGLOBIN 30.3 pg (28-32); MEAN CORPUSCULAR HGB CONC 31.3 g/dL (31-35); MEAN CORPUSCULAR VOLUME 96.7 fL (81-99); MONOCYTES # (AUTO) 2.2 (0.2-0.8); MONOCYTES % 7.8 % (4.4-11.3); NEUTROPHILS # (AUTO) 24.3 (2.1-6.9); NEUTROPHILS % 86.1 % (38.7-80.0); PLATELET COUNT 313 x10e3/uL (140-360); RED BLOOD COUNT 2.41 x10e6/uL (4.3-5.7); RED CELL DISTRIBUTION WIDTH 13.2 % (11.7-14.4)
[2020-05-25 21:08] LABS: ANION GAP 10.1 mmol/L (8-16); CALCIUM 8.1 mg/dL (8.4-10.2); CREATININE, SERUM 3.23 mg/dL (0.72-1.25); POTASSIUM 3.1 mmol/L (3.5-5.1)
[2020-05-25] MEDS: CEFEPIME 1GM/NS 0.9% 50 ML 50 ML IV SCH (21:50)
[2020-05-26] VITALS (23 sets, daily range): BP systolic 112–157; BP diastolic 67–96
[2020-05-26] MEDS: METRONIDAZOLE 250MG/NS 50ML 50 ML IV SCH ×3 (02:45→18:01)
[2020-05-26] MEDS: MIDAZOLAM HCL 5MG/ML 10ML VIAL 100 ML IV PRN ×2 (05:30→14:34)
[2020-05-26 06:20] LABS: BASOPHILS # (AUTO) 0.1 (0.0-0.1); BASOPHILS % 0.4 % (0.0-1.0); EOSINOPHILS # (AUTO) 0.1 (0.0-0.4); EOSINOPHILS % 0.3 % (0.0-6.0); HEMATOCRIT 23.6 % (38.2-49.6); HEMOGLOBIN 7.5 g/dL (14.0-18.0); LYMPHOCYTES # (AUTO) 0.8 (1.0-3.2); LYMPHOCYTES % 3.1 % (18.0-39.1); MEAN CORPUSCULAR HEMOGLOBIN 30.4 pg (28-32); MEAN CORPUSCULAR HGB CONC 31.8 g/dL (31-35); MEAN CORPUSCULAR VOLUME 95.5 fL (81-99); MONOCYTES # (AUTO) 1.6 (0.2-0.8); MONOCYTES % 5.9 % (4.4-11.3); NEUTROPHILS % 88.1 % (38.7-80.0); PLATELET COUNT 346 x10e3/uL (140-360); RED BLOOD COUNT 2.47 x10e6/uL (4.3-5.7); RED CELL DISTRIBUTION WIDTH 13.4 % (11.7-14.4)
[2020-05-26 07:05] LABS: ALBUMIN 1.9 g/dL (3.5-5.0); ALBUMIN/GLOBULIN RATIO 0.5 (0.8-2.0); ANION GAP 13.9 mmol/L (8-16); CALCIUM 8.3 mg/dL (8.4-10.2); CREATININE, SERUM 3.79 mg/dL (0.72-1.25); POTASSIUM 3.9 mmol/L (3.5-5.1)
[2020-05-26] MEDS: SODIUM BICARBONATE 8.4% 150 ML in DEXTROSE 5% 1,000 ML IV SCH ×2 (08:46→10:56)
[2020-05-26] MEDS: METOCLOPRAMIDE HCL 10MG/10ML UDC GT SCH ×4 (09:29→22:00)
[2020-05-26] MEDS: ZINC SULFATE 220 MG CAP PO SCH (09:29)
[2020-05-26] MEDS: ASCORBIC ACID 500 MG TAB PO SCH ×2 (09:29→17:00)
[2020-05-26] MEDS: BALSAM PERU/CASTOR OIL 60 GM OINT...G. TP SCH (09:29)
[2020-05-26] MEDS: PROPOFOL IV EMULSION 10MG/ML 100 ML IV SCH (09:45)
[2020-05-26 12:12] LABS: ABG HCO3 32 mmol/L (22-26); ABG PCO2 53 mmHg (35-45); ABG PH 7.39 (7.35-7.45); ABG PO2 71 mmHg (80-105); ABG TCO2 33
[2020-05-26] MEDS: ROCURONIUM BROMIDE 1,250 MG in SODIUM CHLORIDE 0.9% 250ML 125 ML IV SCH (12:31)
[2020-05-26] MEDS: FENTANYL 2000MCG/NS 250 250 ML IV PRN (14:32)
[2020-05-26] MEDS ORDERED: HEPARIN SOD (PORCINE) 1000 UNIT/ML SDV IV PRN (14:45)
[2020-05-26] MEDS: NOREPINEPHRINE 8 MG/D5W 250 ML 250 ML IV SCH (16:30)
[2020-05-26] MEDS: ENOXAPARIN 30 MG/0.3 ML SYR SC SCH (17:07)
[2020-05-26] MEDS: MIDAZOLAM HCL 50 MG in SODIUM CHLORIDE 0.9% 100 ML 90 ML IV PRN (19:40)
[2020-05-26] MEDS: FENTANYL CITRATE INJ 2,000 MCG in SODIUM CHLORIDE 0.9% 250ML 210 ML IV PRN (20:00)
[2020-05-26] MEDS: CEFEPIME 1GM/NS 0.9% 50 ML 50 ML IV SCH (22:00)
[2020-05-27] VITALS (23 sets, daily range): BP systolic 107–154; BP diastolic 57–98
[2020-05-27] MEDS: MIDAZOLAM HCL 50 MG in SODIUM CHLORIDE 0.9% 100 ML 90 ML IV PRN ×5 (01:15→21:42)
[2020-05-27] MEDS: METRONIDAZOLE 250MG/NS 50ML 50 ML IV SCH ×3 (02:30→17:58)
[2020-05-27] MEDS: FENTANYL CITRATE INJ 2,000 MCG in SODIUM CHLORIDE 0.9% 250ML 210 ML IV PRN ×3 (04:45→17:58)
[2020-05-27 06:44] LABS: BASOPHILS # (AUTO) 0.1 (0.0-0.1); BASOPHILS % 0.5 % (0.0-1.0); EOSINOPHILS # (AUTO) 0.6 (0.0-0.4); EOSINOPHILS % 2.8 % (0.0-6.0); HEMATOCRIT 25.4 % (38.2-49.6); LYMPHOCYTES # (AUTO) 1.3 (1.0-3.2); LYMPHOCYTES % 5.9 % (18.0-39.1); MEAN CORPUSCULAR HEMOGLOBIN 30.3 pg (28-32); MEAN CORPUSCULAR HGB CONC 31.5 g/dL (31-35); MEAN CORPUSCULAR VOLUME 96.2 fL (81-99); MONOCYTES # (AUTO) 1.4 (0.2-0.8); MONOCYTES % 6.2 % (4.4-11.3); NEUTROPHILS # (AUTO) 18.1 (2.1-6.9); NEUTROPHILS % 81.1 % (38.7-80.0); PLATELET COUNT 339 x10e3/uL (140-360); RED BLOOD COUNT 2.64 x10e6/uL (4.3-5.7); RED CELL DISTRIBUTION WIDTH 13.5 % (11.7-14.4)
[2020-05-27 06:59] LABS: ANION GAP 12.4 mmol/L (8-16); CALCIUM 8.3 mg/dL (8.4-10.2); CREATININE, SERUM 3.06 mg/dL (0.72-1.25); POTASSIUM 3.4 mmol/L (3.5-5.1)
[2020-05-27] MEDS: SODIUM BICARBONATE 8.4% 150 ML in DEXTROSE 5% 1,000 ML IV SCH (07:06)
[2020-05-27] MEDS: PROPOFOL IV EMULSION 10MG/ML 100 ML IV SCH (07:49)
[2020-05-27] MEDS: METOCLOPRAMIDE HCL 10MG/10ML UDC GT SCH ×4 (08:55→20:59)
[2020-05-27] MEDS: ZINC SULFATE 220 MG CAP PO SCH (08:55)
[2020-05-27] MEDS: ASCORBIC ACID 500 MG TAB PO SCH ×2 (08:55→17:58)
[2020-05-27] MEDS: BALSAM PERU/CASTOR OIL 60 GM OINT...G. TP SCH (08:55)
[2020-05-27] MEDS: NOREPINEPHRINE 8 MG/D5W 250 ML 250 ML IV SCH (10:57)
[2020-05-27 12:16] LABS: ABG HCO3 34 mmol/L (22-26); ABG PCO2 57 mmHg (35-45); ABG PH 7.38 (7.35-7.45); ABG PO2 61 mmHg (80-105); ABG TCO2 35
[2020-05-27] MEDS ORDERED: MIDAZOLAM HCL 5MG/ML 10ML VIAL 100 ML BAG IV ONE (12:27)
[2020-05-27] MEDS ORDERED: FENTANYL 2,000 MCG/250 ML BAG ONE (12:27)
[2020-05-27] MEDS: ALBUMIN 25% 25GM 100ML 0.25 GM/ML BTL IV PRN (15:00)
[2020-05-27] MEDS: ENOXAPARIN 30 MG/0.3 ML SYR SC SCH (17:58)
[2020-05-27] MEDS: CEFEPIME 1GM/NS 0.9% 50 ML 50 ML IV SCH (20:59)
[2020-05-28] VITALS (25 sets, daily range): BP systolic 121–148; BP diastolic 51–98
[2020-05-28] MEDS: FENTANYL CITRATE INJ 2,000 MCG in SODIUM CHLORIDE 0.9% 250ML 210 ML IV PRN ×3 (00:55→20:38)
[2020-05-28] MEDS: METRONIDAZOLE 250MG/NS 50ML 50 ML IV SCH ×3 (01:58→17:04)
[2020-05-28] MEDS: MIDAZOLAM HCL 50 MG in SODIUM CHLORIDE 0.9% 100 ML 90 ML IV PRN ×3 (03:30→17:44)
[2020-05-28] MEDS: SODIUM BICARBONATE 8.4% 150 ML in DEXTROSE 5% 1,000 ML IV SCH (05:00)
[2020-05-28 06:40] LABS: BASOPHILS # (AUTO) 0.1 (0.0-0.1); BASOPHILS % 0.5 % (0.0-1.0); EOSINOPHILS # (AUTO) 0.3 (0.0-0.4); EOSINOPHILS % 1.9 % (0.0-6.0); HEMATOCRIT 24.7 % (38.2-49.6); HEMOGLOBIN 7.7 g/dL (14.0-18.0); LYMPHOCYTES # (AUTO) 0.8 (1.0-3.2); LYMPHOCYTES % 5.5 % (18.0-39.1); MEAN CORPUSCULAR HEMOGLOBIN 30.1 pg (28-32); MEAN CORPUSCULAR HGB CONC 31.2 g/dL (31-35); MEAN CORPUSCULAR VOLUME 96.5 fL (81-99); MONOCYTES # (AUTO) 1.1 (0.2-0.8); MONOCYTES % 7.2 % (4.4-11.3); NEUTROPHILS # (AUTO) 12.1 (2.1-6.9); NEUTROPHILS % 79.3 % (38.7-80.0); PLATELET COUNT 316 x10e3/uL (140-360); RED BLOOD COUNT 2.56 x10e6/uL (4.3-5.7); RED CELL DISTRIBUTION WIDTH 13.4 % (11.7-14.4)
[2020-05-28] MEDS: PROPOFOL IV EMULSION 10MG/ML 100 ML IV SCH (07:17)
[2020-05-28] MEDS: NOREPINEPHRINE 8 MG/D5W 250 ML 250 ML IV SCH (07:17)
[2020-05-28 07:24] LABS: ALBUMIN 1.8 g/dL (3.5-5.0); ALBUMIN/GLOBULIN RATIO 0.5 (0.8-2.0); ANION GAP 12.1 mmol/L (8-16); CREATININE, SERUM 2.87 mg/dL (0.72-1.25); POTASSIUM 4.1 mmol/L (3.5-5.1)
[2020-05-28 09:10] LABS: ABG HCO3 34 mmol/L (22-26); ABG PCO2 63 mmHg (35-45); ABG PH 7.34 (7.35-7.45); ABG PO2 90 mmHg (80-105)
[2020-05-28 09:11] LABS: ABG TCO2 36
[2020-05-28] MEDS: ASCORBIC ACID 500 MG TAB PO SCH ×2 (09:16→17:04)
[2020-05-28] MEDS: METOCLOPRAMIDE HCL 10MG/10ML UDC GT SCH ×4 (09:16→21:00)
[2020-05-28] MEDS: BALSAM PERU/CASTOR OIL 60 GM OINT...G. TP SCH (09:16)
[2020-05-28] MEDS: ZINC SULFATE 220 MG CAP PO SCH (09:16)
[2020-05-28 10:54] LABS: BAND NEUTROPHILS % (MANUAL) 4 %; LYMPHOCYTES % (MANUAL) 9 % (19-48); MONOCYTES % (MANUAL) 7 % (3.4-9.0); NEUTROPHILS % (MANUAL) 80 % (40-74)
[2020-05-28] MEDS: ACETAMINOPHEN 325 MG TAB PO PRN (15:55)
[2020-05-28] MEDS: ENOXAPARIN 30 MG/0.3 ML SYR SC SCH (17:04)
[2020-05-28] MEDS: CEFEPIME 1GM/NS 0.9% 50 ML 50 ML IV SCH (21:00)
[2020-05-28] MEDS ORDERED: DEXMEDETOMIDINE 200MCG/NS 50ML 100 ML IV ONE (21:30)
[2020-05-28] MEDS: DEXMEDETOMIDINE HCL 200 MCG in SODIUM CHLORIDE 0.9% 50ML 48 ML IV PRN (22:08)
[2020-05-29] VITALS (24 sets, daily range): BP systolic 95–137; BP diastolic 57–90
[2020-05-29] MEDS: DEXMEDETOMIDINE HCL 200 MCG in SODIUM CHLORIDE 0.9% 50ML 48 ML IV PRN ×2 (00:04→07:23)
[2020-05-29] MEDS ORDERED: DEXMEDETOMIDINE 200MCG/NS 50ML 100 ML IV ONE (01:52)
[2020-05-29] MEDS: METRONIDAZOLE 250MG/NS 50ML 50 ML IV SCH ×3 (02:35→17:44)
[2020-05-29 06:39] LABS: BASOPHILS % 0.4 % (0.0-1.0); EOSINOPHILS # (AUTO) 0.4 (0.0-0.4); EOSINOPHILS % 4.1 % (0.0-6.0); HEMATOCRIT 22.2 % (38.2-49.6); LYMPHOCYTES # (AUTO) 1.1 (1.0-3.2); MEAN CORPUSCULAR HEMOGLOBIN 30.3 pg (28-32); MEAN CORPUSCULAR HGB CONC 31.5 g/dL (31-35); MEAN CORPUSCULAR VOLUME 96.1 fL (81-99); MONOCYTES # (AUTO) 1.1 (0.2-0.8); MONOCYTES % 11.1 % (4.4-11.3); NEUTROPHILS # (AUTO) 6.6 (2.1-6.9); NEUTROPHILS % 68.6 % (38.7-80.0); PLATELET COUNT 247 x10e3/uL (140-360); RED BLOOD COUNT 2.31 x10e6/uL (4.3-5.7); RED CELL DISTRIBUTION WIDTH 13.2 % (11.7-14.4)
[2020-05-29 06:52] LABS: ANION GAP 11.8 mmol/L (8-16); CALCIUM 8.1 mg/dL (8.4-10.2); CREATININE, SERUM 3.68 mg/dL (0.72-1.25); POTASSIUM 3.8 mmol/L (3.5-5.1)
[2020-05-29] MEDS: BALSAM PERU/CASTOR OIL 60 GM OINT...G. TP SCH (07:41)
[2020-05-29] MEDS: ZINC SULFATE 220 MG CAP PO SCH (09:20)
[2020-05-29] MEDS: METOCLOPRAMIDE HCL 10MG/10ML UDC GT SCH ×4 (09:20→20:33)
[2020-05-29] MEDS: ASCORBIC ACID 500 MG TAB PO SCH (09:20)
[2020-05-29 13:03] LABS: ABG HCO3 36 mmol/L (22-26); ABG PCO2 58 mmHg (35-45); ABG PO2 69 mmHg (80-105); ABG TCO2 38
[2020-05-29] MEDS ORDERED: MIDAZOLAM HCL 5MG/ML 10ML VIAL 100 ML BAG IV ONE (13:30)
[2020-05-29] MEDS ORDERED: PROPOFOL IV EMULSION 10 MG/ML 50 ML VIAL IV ONE (13:30)
[2020-05-29] MEDS ORDERED: FENTANYL 2,000 MCG/250 ML BAG ONE (13:30)
[2020-05-29] MEDS: NOREPINEPHRINE 8 MG/D5W 250 ML 250 ML IV SCH (16:30)
[2020-05-29] MEDS: FENTANYL CITRATE INJ 2,000 MCG in SODIUM CHLORIDE 0.9% 250ML 210 ML IV PRN ×2 (17:15→23:45)
[2020-05-29] MEDS: ENOXAPARIN 30 MG/0.3 ML SYR SC SCH (17:44)
[2020-05-29] MEDS: MIDAZOLAM HCL 50 MG in SODIUM CHLORIDE 0.9% 100 ML 90 ML IV PRN ×2 (18:49→23:45)
[2020-05-29] MEDS: PROPOFOL IV EMULSION 10MG/ML 100 ML IV SCH (20:25)
[2020-05-29] MEDS: CEFEPIME 1GM/NS 0.9% 50 ML 50 ML IV SCH (20:33)
[2020-05-30] VITALS (24 sets, daily range): BP systolic 98–130; BP diastolic 58–82
[2020-05-30] MEDS: PROPOFOL IV EMULSION 10MG/ML 100 ML IV SCH ×2 (01:58→20:00)
[2020-05-30] MEDS: METRONIDAZOLE 250MG/NS 50ML 50 ML IV SCH ×3 (02:00→18:00)
[2020-05-30] MEDS: METOCLOPRAMIDE HCL 10MG/10ML UDC GT SCH ×4 (11:30→20:47)
[2020-05-30] MEDS: NOREPINEPHRINE 8 MG/D5W 250 ML 250 ML IV SCH (16:30)
[2020-05-30] MEDS: BALSAM PERU/CASTOR OIL 60 GM OINT...G. TP SCH (18:07)
[2020-05-30] MEDS: SODIUM BICARBONATE 8.4% 150 ML in DEXTROSE 5% 1,000 ML IV SCH ×2 (18:07→20:48)
[2020-05-30] MEDS: ZINC SULFATE 220 MG CAP PO SCH (18:07)
[2020-05-30] MEDS: FENTANYL CITRATE INJ 2,000 MCG in SODIUM CHLORIDE 0.9% 250ML 210 ML IV PRN (20:00)
[2020-05-30] MEDS: MIDAZOLAM HCL 50 MG in SODIUM CHLORIDE 0.9% 100 ML 90 ML IV PRN (20:20)
[2020-05-30] MEDS: CEFEPIME 1GM/NS 0.9% 50 ML 50 ML IV SCH (20:47)
[2020-05-31] VITALS (25 sets, daily range): BP systolic 99–160; BP diastolic 63–97
[2020-05-31] MEDS: PROPOFOL IV EMULSION 10MG/ML 100 ML IV SCH (00:31)
[2020-05-31] MEDS: METRONIDAZOLE 250MG/NS 50ML 50 ML IV SCH ×3 (01:15→18:41)
[2020-05-31 06:08] LABS: BASOPHILS % 0.3 % (0.0-1.0); EOSINOPHILS # (AUTO) 0.4 (0.0-0.4); EOSINOPHILS % 3.8 % (0.0-6.0); HEMATOCRIT 22.2 % (38.2-49.6); LYMPHOCYTES # (AUTO) 0.9 (1.0-3.2); MEAN CORPUSCULAR HEMOGLOBIN 30.9 pg (28-32); MEAN CORPUSCULAR HGB CONC 31.1 g/dL (31-35); MEAN CORPUSCULAR VOLUME 99.6 fL (81-99); MONOCYTES % 10.7 % (4.4-11.3); NEUTROPHILS % 72.1 % (38.7-80.0); PLATELET COUNT 191 x10e3/uL (140-360); RED BLOOD COUNT 2.23 x10e6/uL (4.3-5.7); RED CELL DISTRIBUTION WIDTH 13.2 % (11.7-14.4)
[2020-05-31 06:53] LABS: ALBUMIN/GLOBULIN RATIO 0.6 (0.8-2.0); ANION GAP 13.2 mmol/L (8-16); CREATININE, SERUM 2.86 mg/dL (0.72-1.25); POTASSIUM 4.2 mmol/L (3.5-5.1)
[2020-05-31 07:39] LABS: HEMOGLOBIN 6.9 g/dL (14.0-18.0)
[2020-05-31] MEDS ORDERED: SODIUM CHLORIDE 0.9% 250ML 250 ML IV SCH (09:15)
[2020-05-31] MEDS ORDERED: HEPARIN SOD (PORCINE) 1000 UNIT/ML SDV IV PRN (10:00)
[2020-05-31] MEDS: ZINC SULFATE 220 MG CAP PO SCH (14:58)
[2020-05-31] MEDS: BALSAM PERU/CASTOR OIL 60 GM OINT...G. TP SCH (14:58)
[2020-05-31] MEDS: METOCLOPRAMIDE HCL 10MG/10ML UDC GT SCH ×3 (14:58→20:43)
[2020-05-31] MEDS: NOREPINEPHRINE 8 MG/D5W 250 ML 250 ML IV SCH (16:30)
[2020-05-31 17:03] LABS: ABG HCO3 35 mmol/L (22-26); ABG PCO2 63 mmHg (35-45); ABG PH 7.35 (7.35-7.45); ABG PO2 67 mmHg (80-105); ABG TCO2 37
[2020-05-31] MEDS: FUROSEMIDE INJ 10 MG/ML 4 ML VIAL IV SCH ×2 (18:41→22:24)
[2020-05-31] MEDS: CEFEPIME 1GM/NS 0.9% 50 ML 50 ML IV SCH (20:43)
[2020-05-31] MEDS: SODIUM BICARBONATE 8.4% 150 ML in DEXTROSE 5% 1,000 ML IV SCH (20:44)
[2020-06-01] VITALS (18 sets, daily range): BP systolic 114–156; BP diastolic 73–95
[2020-06-01] MEDS: METRONIDAZOLE 250MG/NS 50ML 50 ML IV SCH ×3 (01:45→18:44)
[2020-06-01] MEDS: FUROSEMIDE INJ 10 MG/ML 4 ML VIAL IV SCH (05:27)
[2020-06-01 06:18] LABS: BASOPHILS # (AUTO) 0.1 (0.0-0.1); BASOPHILS % 0.6 % (0.0-1.0); EOSINOPHILS # (AUTO) 0.6 (0.0-0.4); EOSINOPHILS % 3.6 % (0.0-6.0); HEMATOCRIT 30.4 % (38.2-49.6); HEMOGLOBIN 9.4 g/dL (14.0-18.0); LYMPHOCYTES # (AUTO) 1.1 (1.0-3.2); LYMPHOCYTES % 6.6 % (18.0-39.1); MEAN CORPUSCULAR HEMOGLOBIN 29.7 pg (28-32); MEAN CORPUSCULAR HGB CONC 30.9 g/dL (31-35); MEAN CORPUSCULAR VOLUME 96.2 fL (81-99); MONOCYTES # (AUTO) 1.6 (0.2-0.8); NEUTROPHILS % 74.9 % (38.7-80.0); PLATELET COUNT 229 x10e3/uL (140-360); RED BLOOD COUNT 3.16 x10e6/uL (4.3-5.7); RED CELL DISTRIBUTION WIDTH 13.2 % (11.7-14.4)
[2020-06-01 07:00] LABS: ALBUMIN 2.3 g/dL (3.5-5.0); ALBUMIN/GLOBULIN RATIO 0.5 (0.8-2.0); ANION GAP 15.7 mmol/L (8-16); CALCIUM 8.4 mg/dL (8.4-10.2); CREATININE, SERUM 2.12 mg/dL (0.72-1.25); POTASSIUM 4.7 mmol/L (3.5-5.1)
[2020-06-01] MEDS: ZINC SULFATE 220 MG CAP PO SCH (11:17)
[2020-06-01] MEDS: BALSAM PERU/CASTOR OIL 60 GM OINT...G. TP SCH (11:17)
[2020-06-01] MEDS: METOCLOPRAMIDE HCL 10MG/10ML UDC GT SCH ×4 (11:17→20:52)
[2020-06-01] MEDS: PROPOFOL IV EMULSION 10MG/ML 100 ML IV SCH ×2 (11:17→19:00)
[2020-06-01] MEDS: FENTANYL CITRATE INJ 2,000 MCG in SODIUM CHLORIDE 0.9% 250ML 210 ML IV PRN (12:18)
[2020-06-01] MEDS: MIDAZOLAM HCL 50 MG in SODIUM CHLORIDE 0.9% 100 ML 90 ML IV PRN (12:18)
[2020-06-01] MEDS: FUROSEMIDE INJ 100 MG in SODIUM CHLORIDE 0.9% 100 ML 90 ML IV SCH ×2 (14:25→20:52)
[2020-06-01] MEDS: NOREPINEPHRINE 8 MG/D5W 250 ML 250 ML IV SCH (16:30)
[2020-06-01] MEDS: CEFEPIME 1GM/NS 0.9% 50 ML 50 ML IV SCH (20:52)
[2020-06-01] MEDS: SODIUM BICARBONATE 8.4% 150 ML in DEXTROSE 5% 1,000 ML IV SCH (20:52)
[2020-06-01] MEDS: ROCURONIUM BROMIDE 1,250 MG in SODIUM CHLORIDE 0.9% 250ML 125 ML IV SCH (20:52)
[2020-06-02] VITALS (23 sets, daily range): BP systolic 83–149; BP diastolic 42–90
[2020-06-02] MEDS: METRONIDAZOLE 250MG/NS 50ML 50 ML IV SCH ×3 (01:05→19:01)
[2020-06-02 05:49] LABS: BASOPHILS # (AUTO) 0.1 (0.0-0.1); BASOPHILS % 0.3 % (0.0-1.0); EOSINOPHILS # (AUTO) 0.2 (0.0-0.4); EOSINOPHILS % 1.2 % (0.0-6.0); HEMATOCRIT 29.2 % (38.2-49.6); HEMOGLOBIN 8.8 g/dL (14.0-18.0); LYMPHOCYTES # (AUTO) 0.3 (1.0-3.2); LYMPHOCYTES % 1.6 % (18.0-39.1); MEAN CORPUSCULAR HGB CONC 30.1 g/dL (31-35); MEAN CORPUSCULAR VOLUME 96.4 fL (81-99); NEUTROPHILS % 89.5 % (38.7-80.0); PLATELET COUNT 154 x10e3/uL (140-360); RED BLOOD COUNT 3.03 x10e6/uL (4.3-5.7); RED CELL DISTRIBUTION WIDTH 13.2 % (11.7-14.4)
[2020-06-02 06:14] LABS: ANION GAP 15.1 mmol/L (8-16); CALCIUM 8.6 mg/dL (8.4-10.2); CREATININE, SERUM 2.51 mg/dL (0.72-1.25); POTASSIUM 4.1 mmol/L (3.5-5.1)
[2020-06-02 09:10] LABS: ABG HCO3 41 mmol/L (22-26); ABG PCO2 82 mmHg (35-45); ABG PH 7.31 (7.35-7.45); ABG PO2 90 mmHg (80-105); ABG TCO2 43
[2020-06-02] MEDS: ZINC SULFATE 220 MG CAP PO SCH (09:56)
[2020-06-02] MEDS: METOCLOPRAMIDE HCL 10MG/10ML UDC GT SCH ×4 (09:56→20:30)
[2020-06-02] MEDS: FUROSEMIDE INJ 100 MG in SODIUM CHLORIDE 0.9% 100 ML 90 ML IV SCH ×2 (09:56→19:01)
[2020-06-02] MEDS: BALSAM PERU/CASTOR OIL 60 GM OINT...G. TP SCH (09:56)
[2020-06-02] MEDS: ROCURONIUM BROMIDE 1,250 MG in SODIUM CHLORIDE 0.9% 250ML 125 ML IV SCH (20:29)
[2020-06-02] MEDS: NOREPINEPHRINE 8 MG/D5W 250 ML 250 ML IV SCH (20:29)
[2020-06-02] MEDS: SODIUM BICARBONATE 8.4% 150 ML in DEXTROSE 5% 1,000 ML IV SCH (20:30)
[2020-06-02] MEDS: CEFEPIME 1GM/NS 0.9% 50 ML 50 ML IV SCH (20:30)
[2020-06-03] VITALS (26 sets, daily range): BP systolic 90–146; BP diastolic 42–82
[2020-06-03] MEDS: METRONIDAZOLE 250MG/NS 50ML 50 ML IV SCH (01:06)
[2020-06-03] MEDS: FUROSEMIDE INJ 100 MG in SODIUM CHLORIDE 0.9% 100 ML 90 ML IV SCH (01:07)
[2020-06-03] MEDS: ALBUMIN 25% 25GM 100ML 0.25 GM/ML BTL IV PRN ×2 (02:00→05:22)
[2020-06-03] MEDS ORDERED: VASOPRESSIN 60 UNIT in DEXTROSE 5% 50ML 57 ML IV STA (05:11)
[2020-06-03] MEDS ORDERED: ALBUMIN 25% 25GM 100ML 0.25 GM/ML BTL IV ONE (05:15)
[2020-06-03 05:28] LABS: ANION GAP 17.5 mmol/L (8-16); CREATININE, SERUM 3.4 mg/dL (0.72-1.25); POTASSIUM 3.5 mmol/L (3.5-5.1)
[2020-06-03 05:40] LABS: BASOPHILS # (AUTO) 0.1 (0.0-0.1); BASOPHILS % 0.1 % (0.0-1.0); EOSINOPHILS # (AUTO) 0.1 (0.0-0.4); EOSINOPHILS % 0.1 % (0.0-6.0); HEMOGLOBIN 7.2 g/dL (14.0-18.0); LYMPHOCYTES # (AUTO) 0.5 (1.0-3.2); LYMPHOCYTES % 0.5 % (18.0-39.1); MEAN CORPUSCULAR HEMOGLOBIN 30.9 pg (28-32); MEAN CORPUSCULAR HGB CONC 31.3 g/dL (31-35); MEAN CORPUSCULAR VOLUME 98.7 fL (81-99); MONOCYTES % 2.2 % (4.4-11.3); NEUTROPHILS # (AUTO) 83.8 (2.1-6.9); NEUTROPHILS % 93.1 % (38.7-80.0); RED BLOOD COUNT 2.33 x10e6/uL (4.3-5.7); RED CELL DISTRIBUTION WIDTH 13.3 % (11.7-14.4)
[2020-06-03 05:48] LABS: PLATELET COUNT 67 x10e3/uL (140-360)
[2020-06-03] MEDS ORDERED: PHENYLEPHRINE 10MG/ML VIAL 40 MG in DEXTROSE 5% 250ML 250 ML IV STA (06:59)
[2020-06-03] MEDS ORDERED: SODIUM CHLORIDE 0.9% 1000ML 1,000 ML IV SCH (08:45)
[2020-06-03] MEDS ORDERED: MICAFUNGIN SODIUM 50 MG/50 ML BAG IV SCH (09:00)
[2020-06-03] MEDS: MIDAZOLAM HCL 5MG/ML 10ML VIAL 100 ML IV PRN ×2 (09:26→19:00)
[2020-06-03] MEDS: PROPOFOL IV EMULSION 10MG/ML 100 ML IV SCH (09:45)
[2020-06-03] MEDS ORDERED: MICAFUNGIN SODIUM 100 ML IV SCH (10:00)
[2020-06-03] MEDS: BALSAM PERU/CASTOR OIL 60 GM OINT...G. TP SCH (11:07)
[2020-06-03] MEDS: METOCLOPRAMIDE HCL 10MG/10ML UDC GT SCH ×4 (11:09→20:07)
[2020-06-03] MEDS ORDERED: IOPAMIDOL 370 MG/ML 200 ML INFUS..BTL INJ ONE (12:41)
[2020-06-03] MEDS ORDERED: SODIUM CHLORIDE 0.9% 50ML 50 ML ONE (12:41)
[2020-06-03] MEDS: METRONIDAZOLE 500MG/NS 100ML 100 ML IV SCH ×3 (12:56→23:12)
[2020-06-03] MEDS ORDERED: AMIODARONE HCL 150 MG/100 ML BAG IV ONE (15:15)
[2020-06-03] MEDS ORDERED: AMIODARONE HCL 900 MG in DEXTROSE 5% 500ML 500 ML IV SCH (15:15)
[2020-06-03] MEDS ORDERED: AMIODARONE HCL 900 MG in DEXTROSE 5 % 500ML BOTTLE 500 ML IV ONE (15:30)
[2020-06-03] MEDS ORDERED: AMIODARONE HCL 150 MG in DEXTROSE 5% 100ML 100 ML IV SCH (16:00)
[2020-06-03] MEDS: MICAFUNGIN SODIUM 100 ML IV SCH (16:29)
[2020-06-03] MEDS: FENTANYL 2000MCG/NS 250 250 ML IV SCH ×2 (19:00→20:08)
[2020-06-03] MEDS: VASOPRESSIN 60 UNIT in DEXTROSE 5% 50ML 57 ML IV SCH (20:02)
[2020-06-03] MEDS: ROCURONIUM BROMIDE 1,250 MG in SODIUM CHLORIDE 0.9% 250ML 125 ML IV SCH (20:07)
[2020-06-03] MEDS: NOREPINEPHRINE 8 MG/D5W 250 ML 250 ML IV SCH (20:07)
[2020-06-03] MEDS: SODIUM BICARBONATE 8.4% 150 ML in DEXTROSE 5% 1,000 ML IV SCH (20:07)
[2020-06-04] VITALS (24 sets, daily range): BP systolic 83–140; BP diastolic 50–88
[2020-06-04] MEDS: MIDAZOLAM HCL 5MG/ML 10ML VIAL 100 ML IV PRN ×3 (00:20→22:37)
[2020-06-04] MEDS: FENTANYL 2000MCG/NS 250 250 ML IV SCH ×2 (02:40→22:37)
[2020-06-04] MEDS: METRONIDAZOLE 500MG/NS 100ML 100 ML IV SCH ×3 (05:02→18:10)
[2020-06-04 06:02] LABS: BASOPHILS # (AUTO) 0.1 (0.0-0.1); BASOPHILS % 0.1 % (0.0-1.0); EOSINOPHILS # (AUTO) 0.1 (0.0-0.4); EOSINOPHILS % 0.1 % (0.0-6.0); LYMPHOCYTES # (AUTO) 1.5 (1.0-3.2); LYMPHOCYTES % 1.7 % (18.0-39.1); MEAN CORPUSCULAR HEMOGLOBIN 30.5 pg (28-32); MEAN CORPUSCULAR HGB CONC 31.9 g/dL (31-35); MEAN CORPUSCULAR VOLUME 95.5 fL (81-99); MONOCYTES # (AUTO) 2.9 (0.2-0.8); MONOCYTES % 3.2 % (4.4-11.3); NEUTROPHILS # (AUTO) 76.3 (2.1-6.9); NEUTROPHILS % 84.3 % (38.7-80.0); PLATELET COUNT 63 x10e3/uL (140-360); RED BLOOD COUNT 2.23 x10e6/uL (4.3-5.7); RED CELL DISTRIBUTION WIDTH 13.4 % (11.7-14.4)
[2020-06-04 06:26] LABS: ANION GAP 19.7 mmol/L (8-16); CALCIUM 7.8 mg/dL (8.4-10.2); CREATININE, SERUM 3.73 mg/dL (0.72-1.25); POTASSIUM 3.7 mmol/L (3.5-5.1)
[2020-06-04 06:29] LABS: HEMOGLOBIN 6.8 g/dL (14.0-18.0)
[2020-06-04 06:30] LABS: HEMATOCRIT 21.3 % (38.2-49.6)
[2020-06-04] MEDS ORDERED: SODIUM CHLORIDE 0.9% 250ML 250 ML IV ONE ×2 (06:45→12:45)
[2020-06-04] MEDS ORDERED: SODIUM CHLORIDE 0.9% 1000ML 1,000 ML IV SCH (08:45)
[2020-06-04] MEDS: BALSAM PERU/CASTOR OIL 60 GM OINT...G. TP SCH (09:17)
[2020-06-04] MEDS: METOCLOPRAMIDE HCL 10MG/10ML UDC GT SCH ×4 (09:17→22:00)
[2020-06-04] MEDS: PROPOFOL IV EMULSION 10MG/ML 100 ML IV SCH (09:45)
[2020-06-04 09:48] LABS: BAND NEUTROPHILS % (MANUAL) 7 %; LYMPHOCYTES % (MANUAL) 2 % (19-48); MONOCYTES % (MANUAL) 4 % (3.4-9.0); NEUTROPHILS % (MANUAL) 87 % (40-74)
[2020-06-04] MEDS: VASOPRESSIN 60 UNIT in DEXTROSE 5% 50ML 57 ML IV SCH (10:00)
[2020-06-04] MEDS ORDERED: MIDAZOLAM HCL 5MG/ML 10ML VIAL 100 ML BAG IV ONE (10:32)
[2020-06-04] MEDS ORDERED: FENTANYL 2,000 MCG/250 ML BAG ONE (10:32)
[2020-06-04] MEDS ORDERED: DIPHENHYDRAMINE HCL INJ 50 MG/ML VIAL IV ONE (13:30)
[2020-06-04] MEDS: NOREPINEPHRINE 8 MG/D5W 250 ML 250 ML IV SCH (16:30)
[2020-06-04] MEDS: ROCURONIUM BROMIDE 1,250 MG in SODIUM CHLORIDE 0.9% 250ML 125 ML IV SCH (17:15)
[2020-06-04] MEDS: MICAFUNGIN SODIUM 100 ML IV SCH (18:10)
[2020-06-05] VITALS (21 sets, daily range): BP systolic 89–120; BP diastolic 51–78
[2020-06-05] MEDS: METRONIDAZOLE 500MG/NS 100ML 100 ML IV SCH ×5 (00:37→23:40)
[2020-06-05] MEDS: NOREPINEPHRINE 8 MG/D5W 250 ML 250 ML IV SCH (00:40)
[2020-06-05] MEDS: VASOPRESSIN 60 UNIT in DEXTROSE 5% 50ML 57 ML IV SCH (00:40)
[2020-06-05] MEDS: MIDAZOLAM HCL 5MG/ML 10ML VIAL 100 ML IV PRN ×4 (04:28→19:41)
[2020-06-05] MEDS: FENTANYL 2000MCG/NS 250 250 ML IV SCH (05:15)
[2020-06-05 06:14] LABS: BASOPHILS % 0.1 % (0.0-1.0); EOSINOPHILS # (AUTO) 0.1 (0.0-0.4); EOSINOPHILS % 0.2 % (0.0-6.0); LYMPHOCYTES # (AUTO) 1.7 (1.0-3.2); LYMPHOCYTES % 2.6 % (18.0-39.1); MEAN CORPUSCULAR HEMOGLOBIN 30.4 pg (28-32); MEAN CORPUSCULAR HGB CONC 31.8 g/dL (31-35); MEAN CORPUSCULAR VOLUME 95.7 fL (81-99); MONOCYTES # (AUTO) 1.5 (0.2-0.8); MONOCYTES % 2.3 % (4.4-11.3); NEUTROPHILS # (AUTO) 55.2 (2.1-6.9); NEUTROPHILS % 86.1 % (38.7-80.0); RED CELL DISTRIBUTION WIDTH 14.7 % (11.7-14.4)
[2020-06-05 06:20] LABS: PLATELET COUNT 78 x10e3/uL (140-360)
[2020-06-05 06:34] LABS: ANION GAP 14.5 mmol/L (8-16); CALCIUM 8.3 mg/dL (8.4-10.2); CREATININE, SERUM 2.85 mg/dL (0.72-1.25); POTASSIUM 3.5 mmol/L (3.5-5.1)
[2020-06-05] MEDS: METOCLOPRAMIDE HCL 10MG/10ML UDC GT SCH ×4 (08:15→22:00)
[2020-06-05] MEDS: BALSAM PERU/CASTOR OIL 60 GM OINT...G. TP SCH (08:15)
[2020-06-05] MEDS ORDERED: DIPHENHYDRAMINE HCL INJ 50 MG/ML VIAL IV ONE (09:00)
[2020-06-05] MEDS ORDERED: SODIUM CHLORIDE 0.9% 250ML 250 ML IV ONE (09:00)
[2020-06-05] MEDS: PROPOFOL IV EMULSION 10MG/ML 100 ML IV SCH (09:45)
[2020-06-05] MEDS: MICAFUNGIN SODIUM 100 ML IV SCH (15:18)
[2020-06-05] MEDS: ROCURONIUM BROMIDE 1,250 MG in SODIUM CHLORIDE 0.9% 250ML 125 ML IV SCH (17:15)
[2020-06-05] MEDS ORDERED: BUMETANIDE INJ 0.25MG/ML 4ML VIAL IV ONE (17:30)
[2020-06-05] MEDS: BUMETANIDE 10 MG in SODIUM CHLORIDE 0.9% 100 ML 60 ML IV SCH (19:03)
[2020-06-06] VITALS (21 sets, daily range): BP systolic 116–140; BP diastolic 66–94
[2020-06-06] MEDS: MIDAZOLAM HCL 5MG/ML 10ML VIAL 100 ML IV PRN ×3 (00:57→21:25)
[2020-06-06] MEDS: FENTANYL 2000MCG/NS 250 250 ML IV SCH ×4 (01:14→21:41)
[2020-06-06] MEDS ORDERED: BUMETANIDE INJ 0.25 MG/ML 10 ML VIAL ONE ×2 (04:15→04:24)
[2020-06-06] MEDS ORDERED: SODIUM CHLORIDE 0.9% 100 ML ONE (04:16)
[2020-06-06] MEDS: BUMETANIDE 10 MG in SODIUM CHLORIDE 0.9% 100 ML 60 ML IV SCH ×3 (04:37→21:25)
[2020-06-06] MEDS: ROCURONIUM BROMIDE 1,250 MG in SODIUM CHLORIDE 0.9% 250ML 125 ML IV SCH (05:34)
[2020-06-06 05:38] LABS: BASOPHILS # (AUTO) 0.1 (0.0-0.1); BASOPHILS % 0.2 % (0.0-1.0); EOSINOPHILS # (AUTO) 0.2 (0.0-0.4); EOSINOPHILS % 0.5 % (0.0-6.0); HEMATOCRIT 25.4 % (38.2-49.6); HEMOGLOBIN 8.1 g/dL (14.0-18.0); LYMPHOCYTES # (AUTO) 1.5 (1.0-3.2); MEAN CORPUSCULAR HEMOGLOBIN 29.8 pg (28-32); MEAN CORPUSCULAR HGB CONC 31.9 g/dL (31-35); MEAN CORPUSCULAR VOLUME 93.4 fL (81-99); MONOCYTES # (AUTO) 1.7 (0.2-0.8); MONOCYTES % 3.5 % (4.4-11.3); NEUTROPHILS # (AUTO) 44.5 (2.1-6.9); PLATELET COUNT 89 x10e3/uL (140-360); RED BLOOD COUNT 2.72 x10e6/uL (4.3-5.7); RED CELL DISTRIBUTION WIDTH 14.9 % (11.7-14.4)
[2020-06-06] MEDS: METRONIDAZOLE 500MG/NS 100ML 100 ML IV SCH ×4 (05:58→23:00)
[2020-06-06 06:20] LABS: ANION GAP 16.6 mmol/L (8-16); CALCIUM 8.3 mg/dL (8.4-10.2); CREATININE, SERUM 3.52 mg/dL (0.72-1.25); POTASSIUM 3.6 mmol/L (3.5-5.1)
[2020-06-06 08:07] LABS: BAND NEUTROPHILS % (MANUAL) 2 %; LYMPHOCYTES % (MANUAL) 2 % (19-48); MONOCYTES % (MANUAL) 2 % (3.4-9.0); NEUTROPHILS % (MANUAL) 94 % (40-74)
[2020-06-06] MEDS: PROPOFOL IV EMULSION 10MG/ML 100 ML IV SCH (09:45)
[2020-06-06] MEDS: METOCLOPRAMIDE HCL 10MG/10ML UDC GT SCH ×4 (13:19→22:00)
[2020-06-06] MEDS: BALSAM PERU/CASTOR OIL 60 GM OINT...G. TP SCH (13:20)
[2020-06-06] MEDS: MICAFUNGIN SODIUM 100 ML IV SCH (13:20)
[2020-06-06] MEDS: NOREPINEPHRINE 8 MG/D5W 250 ML 250 ML IV SCH (16:30)
[2020-06-07] VITALS (24 sets, daily range): BP systolic 127–149; BP diastolic 48–100
[2020-06-07] MEDS: MIDAZOLAM HCL 5MG/ML 10ML VIAL 100 ML IV PRN ×3 (02:15→21:10)
[2020-06-07] MEDS: ROCURONIUM BROMIDE 1,250 MG in SODIUM CHLORIDE 0.9% 250ML 125 ML IV SCH (02:30)
[2020-06-07 06:14] LABS: BASOPHILS # (AUTO) 0.1 (0.0-0.1); BASOPHILS % 0.4 % (0.0-1.0); EOSINOPHILS # (AUTO) 0.1 (0.0-0.4); EOSINOPHILS % 0.4 % (0.0-6.0); HEMATOCRIT 31.1 % (38.2-49.6); HEMOGLOBIN 9.7 g/dL (14.0-18.0); LYMPHOCYTES # (AUTO) 1.2 (1.0-3.2); LYMPHOCYTES % 3.7 % (18.0-39.1); MEAN CORPUSCULAR HEMOGLOBIN 29.2 pg (28-32); MEAN CORPUSCULAR HGB CONC 31.2 g/dL (31-35); MEAN CORPUSCULAR VOLUME 93.7 fL (81-99); MONOCYTES % 6.3 % (4.4-11.3); NEUTROPHILS # (AUTO) 25.7 (2.1-6.9); NEUTROPHILS % 80.8 % (38.7-80.0); PLATELET COUNT 105 x10e3/uL (140-360); RED BLOOD COUNT 3.32 x10e6/uL (4.3-5.7); RED CELL DISTRIBUTION WIDTH 14.6 % (11.7-14.4)
[2020-06-07 06:30] LABS: ANION GAP 13.1 mmol/L (8-16); CALCIUM 7.6 mg/dL (8.4-10.2); CREATININE, SERUM 1.93 mg/dL (0.72-1.25); POTASSIUM 4.1 mmol/L (3.5-5.1)
[2020-06-07] MEDS: METRONIDAZOLE 500MG/NS 100ML 100 ML IV SCH ×3 (06:33→17:35)
[2020-06-07 07:58] LABS: LYMPHOCYTES % (MANUAL) 11 % (19-48); MONOCYTES % (MANUAL) 9 % (3.4-9.0); NEUTROPHILS % (MANUAL) 80 % (40-74)
[2020-06-07 07:59] LABS: HYPOCHROMASIA SLIGHT; PLATELET ESTIMATE MODERATELY DECREASED; PLATELET MORPHOLOGY COMMENT FEW LARGE; POLYCHROMASIA MODE; RBC MORPHOLOGY COMMENT NORMAL
[2020-06-07] MEDS: METOCLOPRAMIDE HCL 10MG/10ML UDC GT SCH ×4 (08:15→20:28)
[2020-06-07] MEDS: BALSAM PERU/CASTOR OIL 60 GM OINT...G. TP SCH (08:15)
[2020-06-07] MEDS: BUMETANIDE 10 MG in SODIUM CHLORIDE 0.9% 100 ML 60 ML IV SCH ×2 (08:15→20:28)
[2020-06-07] MEDS: PROPOFOL IV EMULSION 10MG/ML 100 ML IV SCH (09:45)
[2020-06-07 13:21] LABS: ABG PH 7.39 (7.35-7.45)
[2020-06-07 13:22] LABS: ABG HCO3 32 mmol/L (22-26); ABG PCO2 53 mmHg (35-45); ABG PO2 54 mmHg (80-105); ABG TCO2 34
[2020-06-07] MEDS: NOREPINEPHRINE 8 MG/D5W 250 ML 250 ML IV SCH (16:30)
[2020-06-07] MEDS: MICAFUNGIN SODIUM 100 ML IV SCH (17:35)
[2020-06-08] VITALS (22 sets, daily range): BP systolic 127–147; BP diastolic 82–99
[2020-06-08] MEDS: METRONIDAZOLE 500MG/NS 100ML 100 ML IV SCH ×5 (00:04→23:14)
[2020-06-08 06:00] LABS: BASOPHILS # (AUTO) 0.2 (0.0-0.1); EOSINOPHILS # (AUTO) 0.3 (0.0-0.4); EOSINOPHILS % 1.2 % (0.0-6.0); HEMATOCRIT 31.3 % (38.2-49.6); HEMOGLOBIN 9.7 g/dL (14.0-18.0); LYMPHOCYTES # (AUTO) 1.3 (1.0-3.2); LYMPHOCYTES % 5.9 % (18.0-39.1); MEAN CORPUSCULAR HEMOGLOBIN 28.9 pg (28-32); MEAN CORPUSCULAR VOLUME 93.2 fL (81-99); MONOCYTES # (AUTO) 2.2 (0.2-0.8); NEUTROPHILS # (AUTO) 15.1 (2.1-6.9); NEUTROPHILS % 69.2 % (38.7-80.0); PLATELET COUNT 126 x10e3/uL (140-360); RED BLOOD COUNT 3.36 x10e6/uL (4.3-5.7); RED CELL DISTRIBUTION WIDTH 14.4 % (11.7-14.4)
[2020-06-08] MEDS: BUMETANIDE 10 MG in SODIUM CHLORIDE 0.9% 100 ML 60 ML IV SCH ×3 (06:12→23:15)
[2020-06-08 06:26] LABS: ALBUMIN 2.1 g/dL (3.5-5.0); ALBUMIN/GLOBULIN RATIO 0.6 (0.8-2.0); ANION GAP 12.4 mmol/L (8-16); CALCIUM 8.1 mg/dL (8.4-10.2); CREATININE, SERUM 2.36 mg/dL (0.72-1.25); POTASSIUM 3.4 mmol/L (3.5-5.1)
[2020-06-08] MEDS: BALSAM PERU/CASTOR OIL 60 GM OINT...G. TP SCH ×2 (07:47→17:02)
[2020-06-08] MEDS: METOCLOPRAMIDE HCL 10MG/10ML UDC GT SCH ×4 (07:47→21:07)
[2020-06-08 08:34] LABS: BAND NEUTROPHILS % (MANUAL) 2 %; LYMPHOCYTES % (MANUAL) 6 % (19-48); MONOCYTES % (MANUAL) 9 % (3.4-9.0); MYELOCYTES % (MANUAL) 2 % (0-0); NEUTROPHILS % (MANUAL) 80 % (40-74)
[2020-06-08 08:35] LABS: PLATELET ESTIMATE SLIGHTLY DECREASED; PLATELET MORPHOLOGY COMMENT NORMAL; RBC MORPHOLOGY COMMENT NORMAL
[2020-06-08] MEDS: PROPOFOL IV EMULSION 10MG/ML 100 ML IV SCH (09:45)
[2020-06-08] MEDS: FENTANYL 2000MCG/NS 250 250 ML IV SCH (12:55)
[2020-06-08] MEDS: MICAFUNGIN SODIUM 100 ML IV SCH (14:34)
[2020-06-08] MEDS: NOREPINEPHRINE 8 MG/D5W 250 ML 250 ML IV SCH (16:30)
[2020-06-08 16:33] LABS: ABG HCO3 38 mmol/L (22-26); ABG PCO2 49 mmHg (35-45); ABG PO2 63 mmHg (80-105); ABG TCO2 40
[2020-06-09] VITALS (18 sets, daily range): BP systolic 137–166; BP diastolic 89–105
[2020-06-09] MEDS: METRONIDAZOLE 500MG/NS 100ML 100 ML IV SCH ×4 (05:52→23:10)
[2020-06-09 06:23] LABS: BASOPHILS # (AUTO) 0.3 (0.0-0.1); BASOPHILS % 1.1 % (0.0-1.0); EOSINOPHILS # (AUTO) 0.4 (0.0-0.4); EOSINOPHILS % 1.7 % (0.0-6.0); HEMATOCRIT 33.7 % (38.2-49.6); HEMOGLOBIN 10.4 g/dL (14.0-18.0); LYMPHOCYTES # (AUTO) 1.4 (1.0-3.2); LYMPHOCYTES % 5.9 % (18.0-39.1); MEAN CORPUSCULAR HEMOGLOBIN 28.7 pg (28-32); MEAN CORPUSCULAR HGB CONC 30.9 g/dL (31-35); MEAN CORPUSCULAR VOLUME 92.8 fL (81-99); MONOCYTES # (AUTO) 1.9 (0.2-0.8); MONOCYTES % 8.1 % (4.4-11.3); NEUTROPHILS # (AUTO) 16.6 (2.1-6.9); NEUTROPHILS % 72.5 % (38.7-80.0); PLATELET COUNT 148 x10e3/uL (140-360); RED BLOOD COUNT 3.63 x10e6/uL (4.3-5.7); RED CELL DISTRIBUTION WIDTH 14.5 % (11.7-14.4)
[2020-06-09 06:39] LABS: ALBUMIN 2.3 g/dL (3.5-5.0); ALBUMIN/GLOBULIN RATIO 0.6 (0.8-2.0); CALCIUM 8.1 mg/dL (8.4-10.2); CREATININE, SERUM 2.29 mg/dL (0.72-1.25)
[2020-06-09] MEDS: METOCLOPRAMIDE HCL 10MG/10ML UDC GT SCH ×4 (08:53→20:16)
[2020-06-09] MEDS: FENTANYL 2000MCG/NS 250 250 ML IV SCH (10:00)
[2020-06-09 14:08] LABS: EOSINOPHILS % (MANUAL) 2 % (0-7); LYMPHOCYTES % (MANUAL) 3 % (19-48); MONOCYTES % (MANUAL) 1 % (3.4-9.0); MYELOCYTES % (MANUAL) 3 % (0-0); NEUTROPHILS % (MANUAL) 87 % (40-74)
[2020-06-09 14:09] LABS: PLATELET ESTIMATE ADEQUATE; PLATELET MORPHOLOGY COMMENT NORMAL; RBC MORPHOLOGY COMMENT NORMAL
[2020-06-09] MEDS: MICAFUNGIN SODIUM 100 ML IV SCH (15:24)
[2020-06-09] MEDS: NOREPINEPHRINE 8 MG/D5W 250 ML 250 ML IV SCH (16:30)
[2020-06-09] MEDS: BUMETANIDE 10 MG in SODIUM CHLORIDE 0.9% 100 ML 60 ML IV SCH ×2 (20:16→21:30)
[2020-06-09] MEDS: PROPOFOL IV EMULSION 10MG/ML 100 ML IV SCH (20:16)
[2020-06-10] VITALS (17 sets, daily range): BP systolic 116–152; BP diastolic 67–95
[2020-06-10] MEDS: METRONIDAZOLE 500MG/NS 100ML 100 ML IV SCH ×4 (06:00→23:08)
[2020-06-10 06:13] LABS: BASOPHILS # (AUTO) 0.1 (0.0-0.1); BASOPHILS % 0.3 % (0.0-1.0); EOSINOPHILS # (AUTO) 0.1 (0.0-0.4); EOSINOPHILS % 0.2 % (0.0-6.0); HEMATOCRIT 34.7 % (38.2-49.6); HEMOGLOBIN 10.9 g/dL (14.0-18.0); LYMPHOCYTES # (AUTO) 1.5 (1.0-3.2); LYMPHOCYTES % 3.7 % (18.0-39.1); MEAN CORPUSCULAR HEMOGLOBIN 29.7 pg (28-32); MEAN CORPUSCULAR HGB CONC 31.4 g/dL (31-35); MEAN CORPUSCULAR VOLUME 94.6 fL (81-99); MONOCYTES # (AUTO) 2.3 (0.2-0.8); MONOCYTES % 5.6 % (4.4-11.3); NEUTROPHILS # (AUTO) 35.1 (2.1-6.9); NEUTROPHILS % 86.1 % (38.7-80.0); PLATELET COUNT 163 x10e3/uL (140-360); RED BLOOD COUNT 3.67 x10e6/uL (4.3-5.7); RED CELL DISTRIBUTION WIDTH 14.6 % (11.7-14.4)
[2020-06-10 06:25] LABS: ALBUMIN 2.4 g/dL (3.5-5.0); ALBUMIN/GLOBULIN RATIO 0.6 (0.8-2.0); ANION GAP 13.7 mmol/L (8-16); CALCIUM 8.1 mg/dL (8.4-10.2); CREATININE, SERUM 2.13 mg/dL (0.72-1.25)
[2020-06-10 06:45] LABS: POTASSIUM 2.7 mmol/L (3.5-5.1)
[2020-06-10] MEDS ORDERED: POTASSIUM CHLORIDE 20MEQ/100ML 200 ML IV ONE ×2 (07:00→22:45)
[2020-06-10] MEDS: BALSAM PERU/CASTOR OIL 60 GM OINT...G. TP SCH (08:04)
[2020-06-10] MEDS: BUMETANIDE 10 MG in SODIUM CHLORIDE 0.9% 100 ML 60 ML IV SCH ×2 (08:04→18:00)
[2020-06-10] MEDS: METOCLOPRAMIDE HCL 10MG/10ML UDC GT SCH ×4 (08:04→21:23)
[2020-06-10 09:19] LABS: ABG HCO3 50 mmol/L (22-26); ABG PCO2 56 mmHg (35-45); ABG PH 7.56 (7.35-7.45); ABG PO2 70 mmHg (80-105); ABG TCO2 50
[2020-06-10] MEDS: FENTANYL 2000MCG/NS 250 250 ML IV SCH (10:00)
[2020-06-10] MEDS: NOREPINEPHRINE 8 MG/D5W 250 ML 250 ML IV SCH (16:30)
[2020-06-10] MEDS: CEFTRIAXONE SOD 1 GM 50 ML IV SCH (18:36)
[2020-06-10] MEDS: VANCOMYCIN 1GM/NS 250 ML 250 ML IV SCH (18:36)
[2020-06-10 21:07] LABS: POTASSIUM 2.8 mmol/L (3.5-5.1)
[2020-06-10] MEDS: PROPOFOL IV EMULSION 10MG/ML 100 ML IV SCH (21:22)
[2020-06-10] MEDS ORDERED: MAGNESIUM SULFATE 2GM/50ML 50 ML IV ONE (22:45)
[2020-06-11] VITALS (18 sets, daily range): BP systolic 100–139; BP diastolic 59–75
[2020-06-11] MEDS: BUMETANIDE 10 MG in SODIUM CHLORIDE 0.9% 100 ML 60 ML IV SCH ×2 (03:10→17:43)
[2020-06-11] MEDS: VANCOMYCIN 1GM/NS 250 ML 250 ML IV SCH ×2 (05:10→17:43)
[2020-06-11] MEDS: METRONIDAZOLE 500MG/NS 100ML 100 ML IV SCH ×3 (05:10→17:42)
[2020-06-11] MEDS: CEFTRIAXONE SOD 1 GM 50 ML IV SCH ×2 (05:10→17:43)
[2020-06-11 06:57] LABS: ALBUMIN 2.1 g/dL (3.5-5.0); ALBUMIN/GLOBULIN RATIO 0.5 (0.8-2.0); ANION GAP 16.8 mmol/L (8-16); CALCIUM 8.1 mg/dL (8.4-10.2); CREATININE, SERUM 2.25 mg/dL (0.72-1.25); MAGNESIUM 1.4 MG/DL (1.3-2.1); PHOSPHORUS 3.3 MG/DL (2.3-4.7)
[2020-06-11 06:58] LABS: POTASSIUM 2.8 mmol/L (3.5-5.1)
[2020-06-11 08:39] LABS: BASOPHILS # (AUTO) 0.1 (0.0-0.1); BASOPHILS % 0.2 % (0.0-1.0); EOSINOPHILS # (AUTO) 0.1 (0.0-0.4); EOSINOPHILS % 0.2 % (0.0-6.0); HEMATOCRIT 32.5 % (38.2-49.6); LYMPHOCYTES % 3.9 % (18.0-39.1); MEAN CORPUSCULAR HEMOGLOBIN 29.5 pg (28-32); MEAN CORPUSCULAR HGB CONC 30.8 g/dL (31-35); MEAN CORPUSCULAR VOLUME 95.9 fL (81-99); MONOCYTES # (AUTO) 2.3 (0.2-0.8); MONOCYTES % 4.5 % (4.4-11.3); NEUTROPHILS # (AUTO) 45.6 (2.1-6.9); NEUTROPHILS % 87.8 % (38.7-80.0); PLATELET COUNT 195 x10e3/uL (140-360); RED BLOOD COUNT 3.39 x10e6/uL (4.3-5.7); RED CELL DISTRIBUTION WIDTH 15.2 % (11.7-14.4)
[2020-06-11] MEDS: BALSAM PERU/CASTOR OIL 60 GM OINT...G. TP SCH (09:03)
[2020-06-11] MEDS: METOCLOPRAMIDE HCL 10MG/10ML UDC GT SCH ×4 (09:03→21:26)
[2020-06-11 09:17] LABS: BAND NEUTROPHILS % (MANUAL) 3 %; LYMPHOCYTES % (MANUAL) 5 % (19-48); MONOCYTES % (MANUAL) 3 % (3.4-9.0); NEUTROPHILS % (MANUAL) 89 % (40-74)
[2020-06-11] MEDS: PROPOFOL IV EMULSION 10MG/ML 100 ML IV SCH (09:45)
[2020-06-11] MEDS: FENTANYL 2000MCG/NS 250 250 ML IV SCH ×2 (10:00→23:17)
[2020-06-11] MEDS: NOREPINEPHRINE 8 MG/D5W 250 ML 250 ML IV SCH (16:30)
[2020-06-11] MEDS: MIDAZOLAM HCL 5MG/ML 10ML VIAL 100 ML IV PRN ×2 (19:37→21:37)
[2020-06-12] VITALS (20 sets, daily range): BP systolic 109–145; BP diastolic 62–98
[2020-06-12] MEDS: PROPOFOL IV EMULSION 10MG/ML 100 ML IV SCH ×2 (00:51→20:57)
[2020-06-12] MEDS: BUMETANIDE 10 MG in SODIUM CHLORIDE 0.9% 100 ML 60 ML IV SCH ×2 (01:20→12:11)
[2020-06-12] MEDS: METRONIDAZOLE 500MG/NS 100ML 100 ML IV SCH ×4 (01:20→18:27)
[2020-06-12] MEDS: VANCOMYCIN 1GM/NS 250 ML 250 ML IV SCH ×2 (05:00→18:27)
[2020-06-12] MEDS: CEFTRIAXONE SOD 1 GM 50 ML IV SCH ×2 (05:00→18:27)
[2020-06-12 08:20] LABS: BASOPHILS # (AUTO) 0.1 (0.0-0.1); BASOPHILS % 0.3 % (0.0-1.0); EOSINOPHILS # (AUTO) 0.4 (0.0-0.4); EOSINOPHILS % 1.1 % (0.0-6.0); HEMATOCRIT 30.2 % (38.2-49.6); HEMOGLOBIN 9.2 g/dL (14.0-18.0); LYMPHOCYTES # (AUTO) 1.9 (1.0-3.2); MEAN CORPUSCULAR HEMOGLOBIN 28.8 pg (28-32); MEAN CORPUSCULAR HGB CONC 30.5 g/dL (31-35); MEAN CORPUSCULAR VOLUME 94.4 fL (81-99); MONOCYTES # (AUTO) 1.8 (0.2-0.8); MONOCYTES % 4.6 % (4.4-11.3); NEUTROPHILS # (AUTO) 32.9 (2.1-6.9); NEUTROPHILS % 85.3 % (38.7-80.0); PLATELET COUNT 251 x10e3/uL (140-360); RED CELL DISTRIBUTION WIDTH 15.1 % (11.7-14.4)
[2020-06-12] MEDS: BALSAM PERU/CASTOR OIL 60 GM OINT...G. TP SCH (08:48)
[2020-06-12] MEDS: METOCLOPRAMIDE HCL 10MG/10ML UDC GT SCH ×4 (08:48→20:53)
[2020-06-12 08:49] LABS: ALBUMIN 1.9 g/dL (3.5-5.0); ALBUMIN/GLOBULIN RATIO 0.5 (0.8-2.0); ANION GAP 17.7 mmol/L (8-16); CALCIUM 8.2 mg/dL (8.4-10.2); CREATININE, SERUM 2.37 mg/dL (0.72-1.25)
[2020-06-12 08:59] LABS: POTASSIUM 2.7 mmol/L (3.5-5.1)
[2020-06-12] MEDS ORDERED: POTASSIUM CHLORIDE 20 MEQ TAB CR PO STA (09:48)
[2020-06-12] MEDS ORDERED: POTASSIUM CHLORIDE 20MEQ/100ML 300 ML IV ONE ×2 (10:00→16:00)
[2020-06-12] MEDS ORDERED: POTASSIUM CHLORIDE 20 MEQ TAB CR PO ONE (10:30)
[2020-06-12 11:00] LABS: LYMPHOCYTES % (MANUAL) 5 % (19-48); MONOCYTES % (MANUAL) 5 % (3.4-9.0); NEUTROPHILS % (MANUAL) 90 % (40-74)
[2020-06-12 11:01] LABS: HYPOCHROMASIA MODERATE; PLATELET ESTIMATE ADEQUATE; PLATELET MORPHOLOGY COMMENT FEW LARGE; POLYCHROMASIA FEW; RBC MORPHOLOGY COMMENT ABNORMAL; STOMATOCYTES SLIGHT
[2020-06-12] MEDS ORDERED: FENTANYL 2,000 MCG/250 ML BAG ONE (13:19)
[2020-06-12] MEDS ORDERED: MIDAZOLAM HCL 5MG/ML 10ML VIAL 100 ML BAG IV ONE (13:19)
[2020-06-12] MEDS ORDERED: PROPOFOL IV EMULSION 10MG/ML 100ML BTL ONE (13:19)
[2020-06-12] MEDS: NOREPINEPHRINE 8 MG/D5W 250 ML 250 ML IV SCH (16:30)
[2020-06-12] MEDS: FENTANYL 2000MCG/NS 250 250 ML IV SCH (20:10)
[2020-06-12] MEDS: MIDAZOLAM HCL 5MG/ML 10ML VIAL 100 ML IV PRN (21:19)
[2020-06-13] VITALS (26 sets, daily range): BP systolic 113–143; BP diastolic 71–95
[2020-06-13] MEDS: METRONIDAZOLE 500MG/NS 100ML 100 ML IV SCH ×2 (00:04→06:44)
[2020-06-13] MEDS ORDERED: ACETAMINOPHEN 325 MG TAB PO PRN (01:15)
[2020-06-13] MEDS: ACETAMINOPHEN 325 MG TAB NG PRN ×2 (01:28→20:04)
[2020-06-13] MEDS ORDERED: ACETAMINOPHEN 325 MG TAB NG PRN (01:30)
[2020-06-13] MEDS: MIDAZOLAM HCL 5MG/ML 10ML VIAL 100 ML IV PRN (02:58)
[2020-06-13] MEDS: FENTANYL 2000MCG/NS 250 250 ML IV SCH (03:28)
[2020-06-13] MEDS: CEFTRIAXONE SOD 1 GM 50 ML IV SCH ×2 (04:00→17:00)
[2020-06-13] MEDS: PROPOFOL IV EMULSION 10MG/ML 100 ML IV SCH ×2 (04:17→21:21)
[2020-06-13] MEDS: VANCOMYCIN 1GM/NS 250 ML 250 ML IV SCH ×2 (05:00→17:00)
[2020-06-13 05:52] LABS: BASOPHILS # (AUTO) 0.1 (0.0-0.1); BASOPHILS % 0.3 % (0.0-1.0); EOSINOPHILS # (AUTO) 0.2 (0.0-0.4); EOSINOPHILS % 0.5 % (0.0-6.0); HEMATOCRIT 30.7 % (38.2-49.6); HEMOGLOBIN 9.5 g/dL (14.0-18.0); LYMPHOCYTES # (AUTO) 1.3 (1.0-3.2); LYMPHOCYTES % 3.6 % (18.0-39.1); MEAN CORPUSCULAR HEMOGLOBIN 29.8 pg (28-32); MEAN CORPUSCULAR HGB CONC 30.9 g/dL (31-35); MEAN CORPUSCULAR VOLUME 96.2 fL (81-99); MONOCYTES # (AUTO) 1.9 (0.2-0.8); MONOCYTES % 5.2 % (4.4-11.3); NEUTROPHILS # (AUTO) 31.4 (2.1-6.9); NEUTROPHILS % 87.5 % (38.7-80.0); PLATELET COUNT 316 x10e3/uL (140-360); RED BLOOD COUNT 3.19 x10e6/uL (4.3-5.7); RED CELL DISTRIBUTION WIDTH 14.9 % (11.7-14.4)
[2020-06-13 06:21] LABS: ANION GAP 16.7 mmol/L (8-16); CALCIUM 8.1 mg/dL (8.4-10.2); CREATININE, SERUM 1.89 mg/dL (0.72-1.25)
[2020-06-13 06:24] LABS: POTASSIUM 2.7 mmol/L (3.5-5.1)
[2020-06-13] MEDS ORDERED: KCL 20 MEQ PACKET/ ORAL SOLN NG ONE (07:30)
[2020-06-13 08:59] LABS: LYMPHOCYTES % (MANUAL) 3 % (19-48); MONOCYTES % (MANUAL) 4 % (3.4-9.0); NEUTROPHILS % (MANUAL) 93 % (40-74); PLATELET ESTIMATE ADEQUATE; PLATELET MORPHOLOGY COMMENT NORMAL; RBC MORPHOLOGY COMMENT NORMAL
[2020-06-13] MEDS: METOCLOPRAMIDE HCL 10MG/10ML UDC GT SCH ×4 (09:04→20:57)
[2020-06-13] MEDS: BALSAM PERU/CASTOR OIL 60 GM OINT...G. TP SCH (09:04)
[2020-06-13] MEDS ORDERED: POTASSIUM CHLORIDE 20MEQ/100ML 200 ML IV ONE (14:00)
[2020-06-13 15:31] LABS: ABG HCO3 50 mmol/L (22-26); ABG PCO2 63 mmHg (35-45); ABG PH 7.51 (7.35-7.45); ABG PO2 66 mmHg (80-105); ABG TCO2 > 50
[2020-06-13] MEDS: NOREPINEPHRINE 8 MG/D5W 250 ML 250 ML IV SCH (16:30)
[2020-06-14] VITALS (25 sets, daily range): BP systolic 105–142; BP diastolic 49–99
[2020-06-14] MEDS: FENTANYL 2000MCG/NS 250 250 ML IV SCH ×3 (00:26→20:00)
[2020-06-14] MEDS: MIDAZOLAM HCL 5MG/ML 10ML VIAL 100 ML IV PRN ×3 (00:29→20:00)
[2020-06-14] MEDS: PROPOFOL IV EMULSION 10MG/ML 100 ML IV SCH ×3 (01:11→20:00)
[2020-06-14] MEDS: CEFTRIAXONE SOD 1 GM 50 ML IV SCH ×2 (04:28→16:27)
[2020-06-14 05:28] LABS: ANION GAP 15.2 mmol/L (8-16); CALCIUM 7.9 mg/dL (8.4-10.2); CREATININE, SERUM 1.62 mg/dL (0.72-1.25); POTASSIUM 3.2 mmol/L (3.5-5.1)
[2020-06-14] MEDS: VANCOMYCIN 1GM/NS 250 ML 250 ML IV SCH (05:47)
[2020-06-14 06:18] LABS: BASOPHILS # (AUTO) 0.2 (0.0-0.1); BASOPHILS % 0.5 % (0.0-1.0); EOSINOPHILS # (AUTO) 0.5 (0.0-0.4); EOSINOPHILS % 1.6 % (0.0-6.0); HEMATOCRIT 28.7 % (38.2-49.6); HEMOGLOBIN 8.7 g/dL (14.0-18.0); LYMPHOCYTES # (AUTO) 1.4 (1.0-3.2); LYMPHOCYTES % 4.7 % (18.0-39.1); MEAN CORPUSCULAR HEMOGLOBIN 28.9 pg (28-32); MEAN CORPUSCULAR HGB CONC 30.3 g/dL (31-35); MEAN CORPUSCULAR VOLUME 95.3 fL (81-99); MONOCYTES # (AUTO) 1.7 (0.2-0.8); MONOCYTES % 5.7 % (4.4-11.3); NEUTROPHILS # (AUTO) 25.9 (2.1-6.9); NEUTROPHILS % 86.1 % (38.7-80.0); PLATELET COUNT 333 x10e3/uL (140-360); RED BLOOD COUNT 3.01 x10e6/uL (4.3-5.7)
[2020-06-14] MEDS: METOCLOPRAMIDE HCL 10MG/10ML UDC GT SCH (09:03)
[2020-06-14] MEDS: BALSAM PERU/CASTOR OIL 60 GM OINT...G. TP SCH (09:03)
[2020-06-14 09:20] LABS: LYMPHOCYTES % (MANUAL) 4 % (19-48); MONOCYTES % (MANUAL) 5 % (3.4-9.0); NEUTROPHILS % (MANUAL) 91 % (40-74); PLATELET ESTIMATE ADEQUATE; PLATELET MORPHOLOGY COMMENT NORMAL; RBC MORPHOLOGY COMMENT NORMAL
[2020-06-14] MEDS: ROCURONIUM BROMIDE 1,250 MG in SODIUM CHLORIDE 0.9% 250ML 125 ML IV SCH (16:00)
[2020-06-14] MEDS: NOREPINEPHRINE 8 MG/D5W 250 ML 250 ML IV SCH (16:30)
[2020-06-14] MEDS: ACETAMINOPHEN 325 MG TAB NG PRN (23:40)
[2020-06-15] VITALS (26 sets, daily range): BP systolic 96–143; BP diastolic 56–97
[2020-06-15] MEDS: PROPOFOL IV EMULSION 10MG/ML 100 ML IV SCH ×4 (00:48→20:37)
[2020-06-15] MEDS: FENTANYL 2000MCG/NS 250 250 ML IV SCH ×2 (03:20→22:33)
[2020-06-15] MEDS: MIDAZOLAM HCL 5MG/ML 10ML VIAL 100 ML IV PRN ×2 (03:20→22:50)
[2020-06-15] MEDS: VANCOMYCIN 1GM/NS 250 ML 250 ML IV SCH (05:00)
[2020-06-15] MEDS: CEFTRIAXONE SOD 1 GM 50 ML IV SCH ×2 (05:00→17:57)
[2020-06-15 06:38] LABS: BASOPHILS # (AUTO) 0.1 (0.0-0.1); BASOPHILS % 0.3 % (0.0-1.0); EOSINOPHILS # (AUTO) 0.2 (0.0-0.4); EOSINOPHILS % 0.4 % (0.0-6.0); HEMATOCRIT 27.8 % (38.2-49.6); HEMOGLOBIN 8.2 g/dL (14.0-18.0); LYMPHOCYTES # (AUTO) 1.5 (1.0-3.2); LYMPHOCYTES % 3.8 % (18.0-39.1); MEAN CORPUSCULAR HEMOGLOBIN 28.9 pg (28-32); MEAN CORPUSCULAR HGB CONC 29.5 g/dL (31-35); MEAN CORPUSCULAR VOLUME 97.9 fL (81-99); MONOCYTES # (AUTO) 1.4 (0.2-0.8); MONOCYTES % 3.6 % (4.4-11.3); NEUTROPHILS # (AUTO) 34.5 (2.1-6.9); NEUTROPHILS % 89.9 % (38.7-80.0); PLATELET COUNT 347 x10e3/uL (140-360); RED BLOOD COUNT 2.84 x10e6/uL (4.3-5.7)
[2020-06-15 06:57] LABS: ANION GAP 16.7 mmol/L (8-16); CREATININE, SERUM 1.45 mg/dL (0.72-1.25)
[2020-06-15 07:08] LABS: POTASSIUM 2.7 mmol/L (3.5-5.1)
[2020-06-15] MEDS: BALSAM PERU/CASTOR OIL 60 GM OINT...G. TP SCH (07:56)
[2020-06-15] MEDS ORDERED: KCL 20 MEQ PACKET/ ORAL SOLN NG ONE (08:35)
[2020-06-15 10:14] LABS: LYMPHOCYTES % (MANUAL) 3 % (19-48); MONOCYTES % (MANUAL) 5 % (3.4-9.0); NEUTROPHILS % (MANUAL) 92 % (40-74)
[2020-06-15 10:15] LABS: ANISOCYTOSIS SLIGHT; HYPOCHROMASIA SLIGHT; PLATELET ESTIMATE ADEQUATE; PLATELET MORPHOLOGY COMMENT FEW LARGE; RBC MORPHOLOGY COMMENT NORMAL
[2020-06-15] MEDS ORDERED: MAGNESIUM SULFATE 2GM/50ML 50 ML IV ONE (11:30)
[2020-06-15] MEDS ORDERED: PROPOFOL IV EMULSION 10MG/ML 100ML BTL ONE (13:22)
[2020-06-15] MEDS ORDERED: PROPOFOL IV EMULSION 10 MG/ML 50 ML VIAL IV ONE (13:22)
[2020-06-15] MEDS ORDERED: MIDAZOLAM HCL 5MG/ML 10ML VIAL 100 ML BAG IV ONE (13:22)
[2020-06-15] MEDS ORDERED: FENTANYL 2,000 MCG/250 ML BAG ONE (13:22)
[2020-06-15] MEDS ORDERED: POTASSIUM CHLORIDE 20MEQ/100ML 200 ML IV ONE (14:00)
[2020-06-15] MEDS: DEXTROSE 5% 1,000 ML IV SCH ×2 (14:26→22:35)
[2020-06-15 16:23] LABS: ABG HCO3 42 mmol/L (22-26); ABG PCO2 58 mmHg (35-45); ABG PH 7.45 (7.35-7.45); ABG PO2 66 mmHg (80-105); ABG TCO2 43
[2020-06-16] VITALS (25 sets, daily range): BP systolic 55–151; BP diastolic 81–103
[2020-06-16] MEDS: MIDAZOLAM HCL 5MG/ML 10ML VIAL 100 ML IV PRN ×4 (04:38→23:15)
[2020-06-16] MEDS: PROPOFOL IV EMULSION 10MG/ML 100 ML IV SCH ×3 (04:55→23:37)
[2020-06-16] MEDS: VANCOMYCIN 1GM/NS 250 ML 250 ML IV SCH (05:51)
[2020-06-16] MEDS: CEFTRIAXONE SOD 1 GM 50 ML IV SCH ×2 (05:51→16:16)
[2020-06-16] MEDS: FENTANYL 2000MCG/NS 250 250 ML IV SCH ×2 (05:51→18:55)
[2020-06-16 06:19] LABS: BASOPHILS # (AUTO) 0.2 (0.0-0.1); BASOPHILS % 0.6 % (0.0-1.0); EOSINOPHILS # (AUTO) 0.7 (0.0-0.4); EOSINOPHILS % 2.1 % (0.0-6.0); HEMATOCRIT 28.3 % (38.2-49.6); HEMOGLOBIN 8.5 g/dL (14.0-18.0); LYMPHOCYTES # (AUTO) 1.4 (1.0-3.2); LYMPHOCYTES % 4.3 % (18.0-39.1); MEAN CORPUSCULAR HEMOGLOBIN 28.6 pg (28-32); MEAN CORPUSCULAR VOLUME 95.3 fL (81-99); MONOCYTES # (AUTO) 1.3 (0.2-0.8); NEUTROPHILS # (AUTO) 28.3 (2.1-6.9); NEUTROPHILS % 86.8 % (38.7-80.0); PLATELET COUNT 378 x10e3/uL (140-360); RED BLOOD COUNT 2.97 x10e6/uL (4.3-5.7); RED CELL DISTRIBUTION WIDTH 14.9 % (11.7-14.4)
[2020-06-16 06:42] LABS: INR 1.3; PROTHROMBIN TIME 17.1 seconds (11.9-14.5)
[2020-06-16 06:43] LABS: PARTIAL THROMBOPLASTIN TIME 33.3 seconds (23.8-35.5)
[2020-06-16 06:51] LABS: ANION GAP 13.2 mmol/L (8-16); BLOOD UREA NITROGEN 52 mg/dL (7-26); BUN/CREATININE RATIO 47 (6-25); CALCIUM 8.4 mg/dL (8.4-10.2); CARBON DIOXIDE 37 mmol/L (22-29); CHLORIDE 96 mmol/L (98-107); CREATININE, SERUM 1.11 mg/dL (0.72-1.25); EST GLOMERULAR FILTRATION RATE > 60 ML/MIN (60-); GLUCOSE 110 mg/dL (74-118); POTASSIUM 3.2 mmol/L (3.5-5.1); SODIUM 143 mmol/L (136-145)
[2020-06-16] MEDS ORDERED: POTASSIUM CHLORIDE 20MEQ/100ML 200 ML IV ONE (08:15)
[2020-06-16] MEDS: BALSAM PERU/CASTOR OIL 60 GM OINT...G. TP SCH (08:58)
[2020-06-16 09:33] LABS: EOSINOPHILS % (MANUAL) 1 % (0-7); LYMPHOCYTES % (MANUAL) 4 % (19-48); MONOCYTES % (MANUAL) 3 % (3.4-9.0); MYELOCYTES % (MANUAL) 1 % (0-0); NEUTROPHILS % (MANUAL) 91 % (40-74)
[2020-06-16 09:34] LABS: ANISOCYTOSIS SLIGHT; PLATELET ESTIMATE SLIGHTLY INCREASED; PLATELET MORPHOLOGY COMMENT FEW LARGE; RBC MORPHOLOGY COMMENT NORMAL
[2020-06-16] MEDS ORDERED: BUPIVACAINE 0.25% 30ML SDV ONE (10:40)
[2020-06-16] MEDS: ROCURONIUM BROMIDE 1,250 MG in SODIUM CHLORIDE 0.9% 250ML 125 ML IV SCH (16:00)
[2020-06-16] MEDS: ACETAMINOPHEN 325 MG TAB NG PRN (22:18)
[2020-06-17] VITALS (24 sets, daily range): BP systolic 57–142; BP diastolic 42–97
[2020-06-17] MEDS: ROCURONIUM BROMIDE 1,250 MG in SODIUM CHLORIDE 0.9% 250ML 125 ML IV SCH (02:56)
[2020-06-17] MEDS: FENTANYL 2000MCG/NS 250 250 ML IV SCH ×3 (02:56→16:27)
[2020-06-17 05:58] LABS: BASOPHILS # (AUTO) 0.2 (0.0-0.1); BASOPHILS % 0.6 % (0.0-1.0); EOSINOPHILS # (AUTO) 0.4 (0.0-0.4); EOSINOPHILS % 1.3 % (0.0-6.0); HEMATOCRIT 29.6 % (38.2-49.6); HEMOGLOBIN 8.8 g/dL (14.0-18.0); LYMPHOCYTES # (AUTO) 1.3 (1.0-3.2); LYMPHOCYTES % 4.6 % (18.0-39.1); MEAN CORPUSCULAR HEMOGLOBIN 29.3 pg (28-32); MEAN CORPUSCULAR HGB CONC 29.7 g/dL (31-35); MEAN CORPUSCULAR VOLUME 98.7 fL (81-99); MONOCYTES # (AUTO) 1.2 (0.2-0.8); MONOCYTES % 4.3 % (4.4-11.3); NEUTROPHILS # (AUTO) 24.6 (2.1-6.9); NEUTROPHILS % 86.7 % (38.7-80.0); PLATELET COUNT 345 x10e3/uL (140-360); RED CELL DISTRIBUTION WIDTH 14.6 % (11.7-14.4)
[2020-06-17] MEDS: PROPOFOL IV EMULSION 10MG/ML 100 ML IV SCH ×3 (06:10→12:28)
[2020-06-17] MEDS: CEFTRIAXONE SOD 1 GM 50 ML IV SCH ×2 (06:10→16:23)
[2020-06-17 06:16] LABS: ALANINE AMINOTRANSFERASE 22 IU/L (0-55); ALBUMIN 1.7 g/dL (3.5-5.0); ALBUMIN/GLOBULIN RATIO 0.4 (0.8-2.0); ALKALINE PHOSPHATASE 174 IU/L (40-150); ANION GAP 13.3 mmol/L (8-16); BLOOD UREA NITROGEN 42 mg/dL (7-26); BUN/CREATININE RATIO 46 (6-25); CALCIUM 8.6 mg/dL (8.4-10.2); CARBON DIOXIDE 37 mmol/L (22-29); CHLORIDE 100 mmol/L (98-107); CREATININE, SERUM 0.91 mg/dL (0.72-1.25); EST GLOMERULAR FILTRATION RATE > 60 ML/MIN (60-); GLUCOSE 118 mg/dL (74-118); POTASSIUM 3.3 mmol/L (3.5-5.1); SODIUM 147 mmol/L (136-145)
[2020-06-17] MEDS: VANCOMYCIN 1GM/NS 250 ML 250 ML IV SCH (06:47)
[2020-06-17] MEDS: MIDAZOLAM HCL 5MG/ML 10ML VIAL 100 ML IV PRN (06:49)
[2020-06-17 07:58] LABS: ABG HCO3 39 mmol/L (22-26); ABG PCO2 74 mmHg (35-45); ABG PH 7.33 (7.35-7.45); ABG PO2 66 mmHg (80-105); ABG TCO2 41
[2020-06-17] MEDS: BALSAM PERU/CASTOR OIL 60 GM OINT...G. TP SCH (08:47)
[2020-06-17] MEDS ORDERED: NOREPINEPHRINE 8 MG/D5W 250 ML 250 ML ONE (11:07)
[2020-06-17] MEDS ORDERED: POTASSIUM CHLORIDE 20MEQ/100ML 100 ML IV ONE (12:00)
[2020-06-17] MEDS ORDERED: DEXTROSE 5% 1,000 ML IV ONE (12:00)
[2020-06-17] MEDS: MIDAZOLAM HCL 5MG/ML 10ML VIAL 100 ML IV SCH ×2 (14:21→19:00)
[2020-06-17] MEDS ORDERED: ATROPINE SULFATE 0.1 MG/ML 10ML SYR IV ONE (17:00)
[2020-06-17] MEDS ORDERED: SODIUM CHLORIDE 0.9% 250ML 250 ML IV ONE (20:15)
[2020-06-17 20:26] LABS: BASOPHILS # (AUTO) 0.3 (0.0-0.1); BASOPHILS % 0.6 % (0.0-1.0); EOSINOPHILS # (AUTO) 0.7 (0.0-0.4); EOSINOPHILS % 1.4 % (0.0-6.0); HEMATOCRIT 26.3 % (38.2-49.6); LYMPHOCYTES % 6.1 % (18.0-39.1); MEAN CORPUSCULAR HEMOGLOBIN 29.4 pg (28-32); MEAN CORPUSCULAR HGB CONC 30.4 g/dL (31-35); MEAN CORPUSCULAR VOLUME 96.7 fL (81-99); MONOCYTES # (AUTO) 2.3 (0.2-0.8); MONOCYTES % 4.6 % (4.4-11.3); NEUTROPHILS # (AUTO) 41.5 (2.1-6.9); NEUTROPHILS % 84.1 % (38.7-80.0); PLATELET COUNT 486 x10e3/uL (140-360); RED BLOOD COUNT 2.72 x10e6/uL (4.3-5.7); RED CELL DISTRIBUTION WIDTH 14.7 % (11.7-14.4)
[2020-06-17 20:44] LABS: ALANINE AMINOTRANSFERASE 23 IU/L (0-55); ALBUMIN 1.6 g/dL (3.5-5.0); ALBUMIN/GLOBULIN RATIO 0.4 (0.8-2.0); ALKALINE PHOSPHATASE 161 IU/L (40-150); ANION GAP 14.1 mmol/L (8-16); BLOOD UREA NITROGEN 42 mg/dL (7-26); BUN/CREATININE RATIO 46 (6-25); CALCIUM 8.5 mg/dL (8.4-10.2); CARBON DIOXIDE 34 mmol/L (22-29); CHLORIDE 99 mmol/L (98-107); CREATININE, SERUM 0.92 mg/dL (0.72-1.25); EST GLOMERULAR FILTRATION RATE > 60 ML/MIN (60-); GLUCOSE 136 mg/dL (74-118); POTASSIUM 4.1 mmol/L (3.5-5.1); SODIUM 143 mmol/L (136-145)
[2020-06-17] MEDS: NOREPINEPHRINE 8 MG/D5W 250 ML 250 ML IV SCH (21:00)
[2020-06-17] MEDS: ALBUMIN 25% 25GM 100ML 0.25 GM/ML BTL IV PRN (21:00)
[2020-06-17] MEDS: ENOXAPARIN SOD INJ 60 MG/0.6 ML SYR SC SCH (21:00)
[2020-06-17 21:03] LABS: BAND NEUTROPHILS % (MANUAL) 5 %; EOSINOPHILS % (MANUAL) 2 % (0-7); LYMPHOCYTES % (MANUAL) 4 % (19-48); MONOCYTES % (MANUAL) 6 % (3.4-9.0); MYELOCYTES % (MANUAL) 1 % (0-0); NEUTROPHILS % (MANUAL) 82 % (40-74); NUCLEATED RED BLOOD CELLS 1; PLATELET ESTIMATE ADEQUATE; PLATELET MORPHOLOGY COMMENT NORMAL; RBC MORPHOLOGY COMMENT NORMAL
[2020-06-17 21:03] LABS: INR 1.31; PROTHROMBIN TIME 17.2 seconds (11.9-14.5)
[2020-06-17 21:04] LABS: PARTIAL THROMBOPLASTIN TIME 32.8 seconds (23.8-35.5)
[2020-06-18] VITALS (25 sets, daily range): BP systolic 82–137; BP diastolic 35–66
[2020-06-18] MEDS ORDERED: PIPER-TAZ 3.375 GM 50 ML IV SCH
[2020-06-18] MEDS: FENTANYL 2000MCG/NS 250 250 ML IV SCH ×2 (00:32→21:00)
[2020-06-18] MEDS: ROCURONIUM BROMIDE 1,250 MG in SODIUM CHLORIDE 0.9% 250ML 125 ML IV SCH ×2 (00:34→22:49)
[2020-06-18] MEDS ORDERED: PIPERACILLIN/TAZOBAC 3.375 GM in DEXTROSE 5% 50ML 50 ML IV ONE (02:30)
[2020-06-18] MEDS: VANCOMYCIN 1GM/NS 250 ML 250 ML IV SCH (05:52)
[2020-06-18] MEDS: CEFTRIAXONE SOD 1 GM 50 ML IV SCH ×2 (05:52→09:12)
[2020-06-18] MEDS: NOREPINEPHRINE 8 MG/D5W 250 ML 250 ML IV SCH ×2 (05:55→21:00)
[2020-06-18] MEDS: PROPOFOL IV EMULSION 10MG/ML 100 ML IV SCH ×2 (05:56→23:38)
[2020-06-18] MEDS ORDERED: PIPERACILLIN/TAZOBAC 3.375 GM in DEXTROSE 5% 50ML 50 ML IV SCH (06:00)
[2020-06-18] MEDS ORDERED: VASOPRESSIN 60 UNIT in DEXTROSE 5% 50ML 57 ML IV PRN (06:00)
[2020-06-18 06:27] LABS: BASOPHILS # (AUTO) 0.3 (0.0-0.1); BASOPHILS % 0.6 % (0.0-1.0); EOSINOPHILS # (AUTO) 0.2 (0.0-0.4); EOSINOPHILS % 0.3 % (0.0-6.0); LYMPHOCYTES # (AUTO) 2.6 (1.0-3.2); MEAN CORPUSCULAR HEMOGLOBIN 28.9 pg (28-32); MEAN CORPUSCULAR HGB CONC 29.8 g/dL (31-35); MEAN CORPUSCULAR VOLUME 96.8 fL (81-99); MONOCYTES # (AUTO) 2.3 (0.2-0.8); MONOCYTES % 4.4 % (4.4-11.3); NEUTROPHILS # (AUTO) 44.7 (2.1-6.9); NEUTROPHILS % 86.5 % (38.7-80.0); PLATELET COUNT 392 x10e3/uL (140-360); RED BLOOD COUNT 1.87 x10e6/uL (4.3-5.7); RED CELL DISTRIBUTION WIDTH 14.8 % (11.7-14.4)
[2020-06-18] MEDS: MIDAZOLAM HCL 5MG/ML 10ML VIAL 100 ML IV SCH ×3 (06:40→21:00)
[2020-06-18 06:46] LABS: HEMATOCRIT 18.1 % (38.2-49.6); HEMOGLOBIN 5.4 g/dL (14.0-18.0)
[2020-06-18 07:12] LABS: ANION GAP 13.8 mmol/L (8-16); BLOOD UREA NITROGEN 42 mg/dL (7-26); BUN/CREATININE RATIO 41 (6-25); CALCIUM 8.2 mg/dL (8.4-10.2); CARBON DIOXIDE 33 mmol/L (22-29); CHLORIDE 101 mmol/L (98-107); CREATININE, SERUM 1.02 mg/dL (0.72-1.25); EST GLOMERULAR FILTRATION RATE > 60 ML/MIN (60-); GLUCOSE 126 mg/dL (74-118); MAGNESIUM 1.5 MG/DL (1.3-2.1); POTASSIUM 3.8 mmol/L (3.5-5.1); SODIUM 144 mmol/L (136-145)
[2020-06-18] MEDS: ENOXAPARIN SOD INJ 60 MG/0.6 ML SYR SC SCH ×2 (09:12→22:47)
[2020-06-18] MEDS: PIPERACILLIN/TAZOBAC 3.375 GM in DEXTROSE 5% 50ML 50 ML IV SCH ×2 (10:06→15:45)
[2020-06-18] MEDS ORDERED: DIPHENHYDRAMINE HCL INJ 50 MG/ML VIAL IV ONE (11:00)
[2020-06-18] MEDS ORDERED: SODIUM CHLORIDE 0.9% 250ML 250 ML IV ONE ×2 (11:00→20:30)
[2020-06-18 16:59] LABS: ABG HCO3 33 mmol/L (22-26); ABG PCO2 66 mmHg (35-45); ABG PH 7.31 (7.35-7.45); ABG PO2 42 mmHg (80-105)
[2020-06-18 17:00] LABS: ABG TCO2 35
[2020-06-18] MEDS ORDERED: METHYLPREDNISOLONE SOD SUCC 40 MG/ML VIAL 1ML IV ONE (17:30)
[2020-06-18] MEDS ORDERED: FUROSEMIDE INJ 10 MG/ML 2 ML VIAL IV PRN (20:30)
[2020-06-18] MEDS ORDERED: METHYLPREDNISOLONE SOD SUCC 40 MG/ML VIAL 1ML IV SCH (21:00)
[2020-06-18] MEDS: ACETAMINOPHEN 325 MG TAB NG PRN (22:00)
[2020-06-19] VITALS (27 sets, daily range): BP systolic 91–137; BP diastolic 42–87
[2020-06-19] MEDS: PIPERACILLIN/TAZOBAC 3.375 GM in DEXTROSE 5% 50ML 50 ML IV SCH ×3 (00:57→17:49)
[2020-06-19] MEDS: MIDAZOLAM HCL 5MG/ML 10ML VIAL 100 ML IV SCH ×2 (03:00→19:39)
[2020-06-19] MEDS: FENTANYL 2000MCG/NS 250 250 ML IV SCH (03:00)
[2020-06-19] MEDS: NOREPINEPHRINE 8 MG/D5W 250 ML 250 ML IV SCH (04:35)
[2020-06-19] MEDS: CEFTRIAXONE SOD 1 GM 50 ML IV SCH (05:26)
[2020-06-19] MEDS: VANCOMYCIN 1GM/NS 250 ML 250 ML IV SCH (05:26)
[2020-06-19 05:29] LABS: BASOPHILS # (AUTO) 0.1 (0.0-0.1); BASOPHILS % 0.3 % (0.0-1.0); EOSINOPHILS # (AUTO) 0.1 (0.0-0.4); EOSINOPHILS % 0.2 % (0.0-6.0); HEMATOCRIT 22.7 % (38.2-49.6); HEMOGLOBIN 7.1 g/dL (14.0-18.0); LYMPHOCYTES # (AUTO) 1.8 (1.0-3.2); LYMPHOCYTES % 3.6 % (18.0-39.1); MEAN CORPUSCULAR HEMOGLOBIN 29.3 pg (28-32); MEAN CORPUSCULAR HGB CONC 31.3 g/dL (31-35); MEAN CORPUSCULAR VOLUME 93.8 fL (81-99); MONOCYTES # (AUTO) 0.9 (0.2-0.8); MONOCYTES % 1.9 % (4.4-11.3); NEUTROPHILS % 91.1 % (38.7-80.0); PLATELET COUNT 279 x10e3/uL (140-360); RED BLOOD COUNT 2.42 x10e6/uL (4.3-5.7); RED CELL DISTRIBUTION WIDTH 16.4 % (11.7-14.4)
[2020-06-19 05:53] LABS: ANION GAP 12.8 mmol/L (8-16); BLOOD UREA NITROGEN 36 mg/dL (7-26); BUN/CREATININE RATIO 34 (6-25); CARBON DIOXIDE 32 mmol/L (22-29); CHLORIDE 103 mmol/L (98-107); CREATININE, SERUM 1.06 mg/dL (0.72-1.25); EST GLOMERULAR FILTRATION RATE > 60 ML/MIN (60-); GLUCOSE 131 mg/dL (74-118); POTASSIUM 3.8 mmol/L (3.5-5.1); SODIUM 144 mmol/L (136-145)
[2020-06-19 06:16] LABS: INR 1.24; PROTHROMBIN TIME 16.4 seconds (11.9-14.5)
[2020-06-19 06:17] LABS: PARTIAL THROMBOPLASTIN TIME 39.2 seconds (23.8-35.5)
[2020-06-19 07:59] LABS: ANISOCYTOSIS SLIGHT; LYMPHOCYTES % (MANUAL) 1 % (19-48); MONOCYTES % (MANUAL) 3 % (3.4-9.0); NEUTROPHILS % (MANUAL) 96 % (40-74); PLATELET ESTIMATE ADEQUATE; RBC MORPHOLOGY COMMENT NORMAL
[2020-06-19 08:00] LABS: PLATELET MORPHOLOGY COMMENT RARE EDTA CLUMPING
[2020-06-19] MEDS: ENOXAPARIN SOD INJ 60 MG/0.6 ML SYR SC SCH ×3 (09:00→20:57)
[2020-06-19 10:23] LABS: BASOPHILS # (AUTO) 0.1 (0.0-0.1); BASOPHILS % 0.2 % (0.0-1.0); HEMATOCRIT 26.9 % (38.2-49.6); HEMOGLOBIN 8.6 g/dL (14.0-18.0); LYMPHOCYTES # (AUTO) 1.9 (1.0-3.2); LYMPHOCYTES % 4.2 % (18.0-39.1); MEAN CORPUSCULAR HEMOGLOBIN 29.4 pg (28-32); MEAN CORPUSCULAR VOLUME 91.8 fL (81-99); MONOCYTES # (AUTO) 1.1 (0.2-0.8); MONOCYTES % 2.4 % (4.4-11.3); NEUTROPHILS # (AUTO) 39.4 (2.1-6.9); NEUTROPHILS % 90.3 % (38.7-80.0); PLATELET COUNT 258 x10e3/uL (140-360); RED BLOOD COUNT 2.93 x10e6/uL (4.3-5.7); RED CELL DISTRIBUTION WIDTH 15.5 % (11.7-14.4)
[2020-06-19] MEDS ORDERED: BUPIVACAINE 0.25% 30ML SDV ONE (10:50)
[2020-06-19] MEDS ORDERED: PHYTONADIONE 10 MG/ML AMP SQ ONE (11:00)
[2020-06-19 14:29] LABS: ANISOCYTOSIS SLIGHT; LYMPHOCYTES % (MANUAL) 4 % (19-48); MONOCYTES % (MANUAL) 3 % (3.4-9.0); NEUTROPHILS % (MANUAL) 93 % (40-74); PLATELET ESTIMATE ADEQUATE; PLATELET MORPHOLOGY COMMENT NORMAL; RBC MORPHOLOGY COMMENT NORMAL
[2020-06-19] MEDS: FUROSEMIDE INJ 10 MG/ML 4 ML VIAL IV SCH (20:16)
[2020-06-19] MEDS: POTASSIUM CHLORIDE 20 MEQ TAB CR PO PRN ×2 (20:51→20:52)
[2020-06-19] MEDS: PROPOFOL IV EMULSION 10MG/ML 100 ML IV SCH (21:00)
[2020-06-20] VITALS (26 sets, daily range): BP systolic 102–148; BP diastolic 67–98
[2020-06-20] MEDS: PIPERACILLIN/TAZOBAC 3.375 GM in DEXTROSE 5% 50ML 50 ML IV SCH ×2 (00:06→08:42)
[2020-06-20] MEDS: ROCURONIUM BROMIDE 1,250 MG in SODIUM CHLORIDE 0.9% 250ML 125 ML IV PRN (00:08)
[2020-06-20] MEDS: MIDAZOLAM HCL 5MG/ML 10ML VIAL 100 ML IV SCH ×3 (00:08→21:14)
[2020-06-20] MEDS: FENTANYL 2000MCG/NS 250 250 ML IV SCH ×2 (00:15→20:35)
[2020-06-20 00:16] LABS: ABG HCO3 34 mmol/L (22-26); ABG PCO2 58 mmHg (35-45); ABG PH 7.32 (7.35-7.45); ABG PO2 54 mmHg (80-105)
[2020-06-20 00:17] LABS: ABG TCO2 35
[2020-06-20] MEDS: PROPOFOL IV EMULSION 10MG/ML 100 ML IV SCH (04:38)
[2020-06-20] MEDS: VANCOMYCIN 1GM/NS 250 ML 250 ML IV SCH (05:00)
[2020-06-20 06:23] LABS: BASOPHILS # (AUTO) 0.2 (0.0-0.1); BASOPHILS % 0.5 % (0.0-1.0); EOSINOPHILS # (AUTO) 0.4 (0.0-0.4); EOSINOPHILS % 1.1 % (0.0-6.0); HEMATOCRIT 27.5 % (38.2-49.6); HEMOGLOBIN 8.8 g/dL (14.0-18.0); LYMPHOCYTES # (AUTO) 1.6 (1.0-3.2); LYMPHOCYTES % 4.6 % (18.0-39.1); MEAN CORPUSCULAR HEMOGLOBIN 29.2 pg (28-32); MEAN CORPUSCULAR VOLUME 91.4 fL (81-99); MONOCYTES # (AUTO) 1.8 (0.2-0.8); MONOCYTES % 5.1 % (4.4-11.3); NEUTROPHILS # (AUTO) 28.6 (2.1-6.9); NEUTROPHILS % 82.6 % (38.7-80.0); PLATELET COUNT 260 x10e3/uL (140-360); RED BLOOD COUNT 3.01 x10e6/uL (4.3-5.7); RED CELL DISTRIBUTION WIDTH 15.6 % (11.7-14.4)
[2020-06-20 06:39] LABS: INR 1.12; PROTHROMBIN TIME 15.1 seconds (11.9-14.5)
[2020-06-20 06:40] LABS: PARTIAL THROMBOPLASTIN TIME 33.2 seconds (23.8-35.5)
[2020-06-20 06:51] LABS: ANION GAP 13.3 mmol/L (8-16); BLOOD UREA NITROGEN 33 mg/dL (7-26); BUN/CREATININE RATIO 37 (6-25); CALCIUM 8.4 mg/dL (8.4-10.2); CARBON DIOXIDE 32 mmol/L (22-29); CHLORIDE 102 mmol/L (98-107); CREATININE, SERUM 0.89 mg/dL (0.72-1.25); EST GLOMERULAR FILTRATION RATE > 60 ML/MIN (60-); GLUCOSE 93 mg/dL (74-118); POTASSIUM 3.3 mmol/L (3.5-5.1); SODIUM 144 mmol/L (136-145)
[2020-06-20] MEDS: ENOXAPARIN SOD INJ 60 MG/0.6 ML SYR SC SCH ×2 (08:05→21:00)
[2020-06-20] MEDS: FUROSEMIDE INJ 10 MG/ML 4 ML VIAL IV SCH ×2 (08:42→22:16)
[2020-06-20] MEDS: METHYLPREDNISOLONE SOD SUCC 40 MG/ML VIAL 1ML IV SCH (08:42)
[2020-06-20 08:54] LABS: ABG HCO3 34 mmol/L (22-26); ABG PCO2 59 mmHg (35-45); ABG PH 7.36 (7.35-7.45); ABG PO2 59 mmHg (80-105); ABG TCO2 35
[2020-06-20 09:35] LABS: ANISOCYTOSIS SLIGHT; EOSINOPHILS % (MANUAL) 1 % (0-7); LYMPHOCYTES % (MANUAL) 6 % (19-48); MONOCYTES % (MANUAL) 4 % (3.4-9.0); MYELOCYTES % (MANUAL) 1 % (0-0); NEUTROPHILS % (MANUAL) 88 % (40-74); PLATELET ESTIMATE ADEQUATE; PLATELET MORPHOLOGY COMMENT NORMAL
[2020-06-20 09:36] LABS: RBC MORPHOLOGY COMMENT ABNORMAL
[2020-06-20] MEDS: PIPERACILLIN/TAZOBAC 3.375 GM in SODIUM CHLORIDE 0.9% 50ML 50 ML IV SCH (17:50)
[2020-06-20] MEDS ORDERED: POTASSIUM CHLORIDE 20MEQ/100ML 100 ML IV ONE (21:00)
[2020-06-20] MEDS: POTASSIUM CHLORIDE 20 MEQ TAB CR PO PRN (22:16)
[2020-06-21] VITALS (24 sets, daily range): BP systolic 102–157; BP diastolic 46–79
[2020-06-21] MEDS: ROCURONIUM BROMIDE 1,250 MG in SODIUM CHLORIDE 0.9% 250ML 125 ML IV PRN ×2 (00:29→18:29)
[2020-06-21] MEDS: PIPERACILLIN/TAZOBAC 3.375 GM in SODIUM CHLORIDE 0.9% 50ML 50 ML IV SCH ×3 (00:29→17:01)
[2020-06-21] MEDS: PROPOFOL IV EMULSION 10MG/ML 100 ML IV SCH ×3 (01:23→18:52)
[2020-06-21] MEDS: MIDAZOLAM HCL 5MG/ML 10ML VIAL 100 ML IV SCH ×5 (02:59→19:30)
[2020-06-21] MEDS: FENTANYL 2000MCG/NS 250 250 ML IV SCH ×3 (04:30→20:00)
[2020-06-21 06:01] LABS: BASOPHILS # (AUTO) 0.1 (0.0-0.1); BASOPHILS % 0.4 % (0.0-1.0); EOSINOPHILS # (AUTO) 0.2 (0.0-0.4); HEMOGLOBIN 8.7 g/dL (14.0-18.0); LYMPHOCYTES # (AUTO) 1.6 (1.0-3.2); LYMPHOCYTES % 6.9 % (18.0-39.1); MEAN CORPUSCULAR HEMOGLOBIN 30.3 pg (28-32); MEAN CORPUSCULAR HGB CONC 32.2 g/dL (31-35); MEAN CORPUSCULAR VOLUME 94.1 fL (81-99); MONOCYTES # (AUTO) 1.2 (0.2-0.8); MONOCYTES % 5.5 % (4.4-11.3); NEUTROPHILS # (AUTO) 17.7 (2.1-6.9); NEUTROPHILS % 78.2 % (38.7-80.0); PLATELET COUNT 227 x10e3/uL (140-360); RED BLOOD COUNT 2.87 x10e6/uL (4.3-5.7); RED CELL DISTRIBUTION WIDTH 15.8 % (11.7-14.4)
[2020-06-21 06:16] LABS: INR 1.13; PROTHROMBIN TIME 15.2 seconds (11.9-14.5)
[2020-06-21 06:17] LABS: PARTIAL THROMBOPLASTIN TIME 32.3 seconds (23.8-35.5)
[2020-06-21] MEDS: FUROSEMIDE INJ 10 MG/ML 4 ML VIAL IV SCH ×2 (06:21→14:54)
[2020-06-21] MEDS: VANCOMYCIN 1GM/NS 250 ML 250 ML IV SCH (06:21)
[2020-06-21 06:50] LABS: ALANINE AMINOTRANSFERASE 89 IU/L (0-55); ALBUMIN 1.7 g/dL (3.5-5.0); ALBUMIN/GLOBULIN RATIO 0.4 (0.8-2.0); ALKALINE PHOSPHATASE 182 IU/L (40-150); ANION GAP 14.2 mmol/L (8-16); BLOOD UREA NITROGEN 33 mg/dL (7-26); BUN/CREATININE RATIO 39 (6-25); CALCIUM 8.2 mg/dL (8.4-10.2); CARBON DIOXIDE 33 mmol/L (22-29); CHLORIDE 101 mmol/L (98-107); CREATININE, SERUM 0.84 mg/dL (0.72-1.25); EST GLOMERULAR FILTRATION RATE > 60 ML/MIN (60-); GLUCOSE 85 mg/dL (74-118); POTASSIUM 3.2 mmol/L (3.5-5.1); SODIUM 145 mmol/L (136-145)
[2020-06-21] MEDS: ENOXAPARIN SOD INJ 60 MG/0.6 ML SYR SC SCH (07:26)
[2020-06-21 08:35] LABS: ABG HCO3 35 mmol/L (22-26); ABG PCO2 56 mmHg (35-45); ABG PO2 66 mmHg (80-105); ABG TCO2 36
[2020-06-21] MEDS: METHYLPREDNISOLONE SOD SUCC 40 MG/ML VIAL 1ML IV SCH (09:08)
[2020-06-21] MEDS ORDERED: SODIUM CHLORIDE 0.9% 250ML 250 ML IV ONE (10:45)
[2020-06-21] MEDS ORDERED: EPINEPHRINE HCL 1:1000 1ML 1 MG/ML AMP ONE (11:44)
[2020-06-21] MEDS ORDERED: BUPIVACAINE 0.25% 30ML SDV ONE (11:44)
[2020-06-21] MEDS ORDERED: FENTANYL 2,000 MCG/250 ML BAG ONE (12:03)
[2020-06-21] MEDS ORDERED: MIDAZOLAM HCL 5MG/ML 10ML VIAL 100 ML BAG IV ONE (12:03)
[2020-06-21] MEDS ORDERED: PROPOFOL IV EMULSION 10 MG/ML 50 ML VIAL IV ONE (12:03)
[2020-06-21] MEDS: ACETAMINOPHEN 325 MG TAB NG PRN (17:13)
[2020-06-21] MEDS: SODIUM CHLORIDE 0.9% 1000ML 1,000 ML IV SCH ×2 (18:24→19:35)
[2020-06-21] MEDS: PROPOFOL IV EMULSION 100 ML IV SCH (19:35)
[2020-06-22] VITALS (24 sets, daily range): BP systolic 129–166; BP diastolic 67–88
[2020-06-22] MEDS: PIPERACILLIN/TAZOBAC 3.375 GM in SODIUM CHLORIDE 0.9% 50ML 50 ML IV SCH ×4 (00:37→23:17)
[2020-06-22] MEDS: NOREPINEPHRINE 8 MG/D5W 250 ML 250 ML IV PRN (01:24)
[2020-06-22] MEDS: MIDAZOLAM HCL 5MG/ML 10ML VIAL 100 ML IV SCH (03:30)
[2020-06-22] MEDS: VANCOMYCIN 1GM/NS 250 ML 250 ML IV SCH (04:12)
[2020-06-22] MEDS: FENTANYL 2000MCG/NS 250 250 ML IV SCH (05:00)
[2020-06-22 06:09] LABS: BASOPHILS # (AUTO) 0.1 (0.0-0.1); BASOPHILS % 0.3 % (0.0-1.0); EOSINOPHILS # (AUTO) 0.1 (0.0-0.4); EOSINOPHILS % 0.2 % (0.0-6.0); HEMATOCRIT 30.5 % (38.2-49.6); HEMOGLOBIN 9.4 g/dL (14.0-18.0); LYMPHOCYTES # (AUTO) 1.8 (1.0-3.2); LYMPHOCYTES % 5.6 % (18.0-39.1); MEAN CORPUSCULAR HGB CONC 30.8 g/dL (31-35); MEAN CORPUSCULAR VOLUME 97.4 fL (81-99); MONOCYTES # (AUTO) 1.9 (0.2-0.8); MONOCYTES % 5.8 % (4.4-11.3); NEUTROPHILS # (AUTO) 25.2 (2.1-6.9); NEUTROPHILS % 79.4 % (38.7-80.0); PLATELET COUNT 268 x10e3/uL (140-360); RED BLOOD COUNT 3.13 x10e6/uL (4.3-5.7); RED CELL DISTRIBUTION WIDTH 16.8 % (11.7-14.4)
[2020-06-22] MEDS: PROPOFOL IV EMULSION 100 ML IV SCH (06:25)
[2020-06-22 06:30] LABS: ANION GAP 16.5 mmol/L (8-16); BLOOD UREA NITROGEN 28 mg/dL (7-26); BUN/CREATININE RATIO 35 (6-25); CALCIUM 8.2 mg/dL (8.4-10.2); CARBON DIOXIDE 32 mmol/L (22-29); CHLORIDE 103 mmol/L (98-107); CREATININE, SERUM 0.81 mg/dL (0.72-1.25); EST GLOMERULAR FILTRATION RATE > 60 ML/MIN (60-); GLUCOSE 99 mg/dL (74-118); POTASSIUM 3.5 mmol/L (3.5-5.1); SODIUM 148 mmol/L (136-145)
[2020-06-22] MEDS: METHYLPREDNISOLONE SOD SUCC 40 MG/ML VIAL 1ML IV SCH (07:37)
[2020-06-22 10:03] LABS: ANISOCYTOSIS SLIGHT; LYMPHOCYTES % (MANUAL) 3 % (19-48); MONOCYTES % (MANUAL) 4 % (3.4-9.0); MYELOCYTES % (MANUAL) 2 % (0-0); NEUTROPHILS % (MANUAL) 91 % (40-74); NUCLEATED RED BLOOD CELLS 2; PLATELET ESTIMATE ADEQUATE; RBC MORPHOLOGY COMMENT NORMAL
[2020-06-22 10:05] LABS: PLATELET MORPHOLOGY COMMENT FEW LARGE
[2020-06-23] VITALS (25 sets, daily range): BP systolic 124–178; BP diastolic 69–91
[2020-06-23] MEDS: VANCOMYCIN 1GM/NS 250 ML 250 ML IV SCH (05:01)
[2020-06-23] MEDS: METHYLPREDNISOLONE SOD SUCC 40 MG/ML VIAL 1ML IV SCH (09:17)
[2020-06-23] MEDS: PIPERACILLIN/TAZOBAC 3.375 GM in SODIUM CHLORIDE 0.9% 50ML 50 ML IV SCH ×2 (09:17→16:04)
[2020-06-23] MEDS: PROPOFOL IV EMULSION 100 ML IV SCH ×2 (10:20→18:06)
[2020-06-23] MEDS: FENTANYL 2000MCG/NS 250 250 ML IV SCH ×2 (10:37→20:07)
[2020-06-23 12:40] LABS: ABG HCO3 37 mmol/L (22-26); ABG PCO2 66 mmHg (35-45); ABG PH 7.36 (7.35-7.45); ABG PO2 57 mmHg (80-105); ABG TCO2 39
[2020-06-23] MEDS: MIDAZOLAM HCL 5MG/ML 10ML VIAL 100 ML IV SCH (16:04)
[2020-06-23 16:18] LABS: ANION GAP 13.3 mmol/L (8-16); BLOOD UREA NITROGEN 23 mg/dL (7-26); BUN/CREATININE RATIO 34 (6-25); CALCIUM 8.6 mg/dL (8.4-10.2); CARBON DIOXIDE 33 mmol/L (22-29); CHLORIDE 106 mmol/L (98-107); CREATININE, SERUM 0.68 mg/dL (0.72-1.25); EST GLOMERULAR FILTRATION RATE > 60 ML/MIN (60-); GLUCOSE 133 mg/dL (74-118); POTASSIUM 3.3 mmol/L (3.5-5.1); SODIUM 149 mmol/L (136-145)
[2020-06-23] MEDS: POTASSIUM CHLORIDE 20 MEQ TAB CR PO PRN (18:33)
[2020-06-23 18:36] LABS: CLARITY,URINE HAZY (CLEAR); COLOR,URINE YELLOW (YELLOW); KETONES,URINE NEGATIVE (NEGATIVE); LEUKOCYTE ESTERASE ,URINE NEGATIVE (NEGATIVE); NITRITE,URINE NEGATIVE (NEGATIVE); PROTEIN,URINE DIPSTICK 1+ (NEGATIVE); URINE UROBILINOGEN 0.2 mg/dL (0.2 - 1)
[2020-06-23 18:51] LABS: BACTERIA,URINE FEW /HPF; URIC ACID CRYSTALS,URINE MODERATE (FEW)
[2020-06-23] MEDS: ENOXAPARIN SOD INJ 60 MG/0.6 ML SYR SC SCH (20:08)
[2020-06-24] VITALS (26 sets, daily range): BP systolic 92–149; BP diastolic 43–79
[2020-06-24] MEDS: PIPERACILLIN/TAZOBAC 3.375 GM in SODIUM CHLORIDE 0.9% 50ML 50 ML IV SCH ×4 (00:26→23:11)
[2020-06-24 06:30] LABS: ANION GAP 14.1 mmol/L (8-16); BLOOD UREA NITROGEN 24 mg/dL (7-26); BUN/CREATININE RATIO 39 (6-25); CALCIUM 8.9 mg/dL (8.4-10.2); CARBON DIOXIDE 35 mmol/L (22-29); CHLORIDE 107 mmol/L (98-107); CREATININE, SERUM 0.62 mg/dL (0.72-1.25); EST GLOMERULAR FILTRATION RATE > 60 ML/MIN (60-); GLUCOSE 122 mg/dL (74-118); MAGNESIUM 1.6 MG/DL (1.3-2.1); PHOSPHORUS 3.2 MG/DL (2.3-4.7); POTASSIUM 3.1 mmol/L (3.5-5.1); SODIUM 153 mmol/L (136-145)
[2020-06-24 07:11] LABS: BASOPHILS # (AUTO) 0.2 (0.0-0.1); BASOPHILS % 0.6 % (0.0-1.0); EOSINOPHILS # (AUTO) 0.1 (0.0-0.4); EOSINOPHILS % 0.6 % (0.0-6.0); HEMATOCRIT 31.2 % (38.2-49.6); HEMOGLOBIN 9.2 g/dL (14.0-18.0); LYMPHOCYTES # (AUTO) 1.2 (1.0-3.2); LYMPHOCYTES % 5.2 % (18.0-39.1); MEAN CORPUSCULAR HEMOGLOBIN 29.7 pg (28-32); MEAN CORPUSCULAR HGB CONC 29.5 g/dL (31-35); MEAN CORPUSCULAR VOLUME 100.6 fL (81-99); MONOCYTES # (AUTO) 1.2 (0.2-0.8); MONOCYTES % 5.3 % (4.4-11.3); NEUTROPHILS # (AUTO) 18.2 (2.1-6.9); PLATELET COUNT 240 x10e3/uL (140-360)
[2020-06-24] MEDS: PROPOFOL IV EMULSION 100 ML IV SCH ×4 (08:00→19:54)
[2020-06-24] MEDS: METHYLPREDNISOLONE SOD SUCC 40 MG/ML VIAL 1ML IV SCH (08:21)
[2020-06-24] MEDS: ENOXAPARIN SOD INJ 60 MG/0.6 ML SYR SC SCH (08:21)
[2020-06-24] MEDS: POTASSIUM CHLORIDE 20 MEQ TAB CR PO PRN (08:22)
[2020-06-24] MEDS: FENTANYL 2000MCG/NS 250 250 ML IV SCH (12:16)
[2020-06-24] MEDS ORDERED: POTASSIUM CHLORIDE 20 MEQ TAB CR PO NR (13:15)
[2020-06-24] MEDS: MIDAZOLAM HCL 5MG/ML 10ML VIAL 100 ML IV SCH ×2 (13:58→23:31)
[2020-06-24] MEDS ORDERED: VECURONIUM BROMIDE FOR INJ 20 MG VIAL IV NR (15:05)
[2020-06-24 15:55] LABS: ABG HCO3 39 mmol/L (22-26); ABG PCO2 69 mmHg (35-45); ABG PH 7.36 (7.35-7.45); ABG PO2 47 mmHg (80-105); ABG TCO2 41
[2020-06-24] MEDS: ROCURONIUM BROMIDE 1,250 MG in SODIUM CHLORIDE 0.9% 250ML 125 ML IV SCH (15:59)
[2020-06-24] MEDS: FUROSEMIDE INJ 10 MG/ML 4 ML VIAL IV SCH (16:02)
[2020-06-24] MEDS: ALBUMIN 25% 25GM 100ML 0.25 GM/ML BTL IV PRN (23:27)
[2020-06-25] VITALS (27 sets, daily range): BP systolic 77–150; BP diastolic 43–96
[2020-06-25] MEDS: PROPOFOL IV EMULSION 100 ML IV SCH (01:25)
[2020-06-25 06:42] LABS: BASOPHILS # (AUTO) 0.2 (0.0-0.1); BASOPHILS % 0.7 % (0.0-1.0); EOSINOPHILS % 0.1 % (0.0-6.0); HEMATOCRIT 31.2 % (38.2-49.6); HEMOGLOBIN 9.1 g/dL (14.0-18.0); LYMPHOCYTES # (AUTO) 1.9 (1.0-3.2); LYMPHOCYTES % 5.7 % (18.0-39.1); MEAN CORPUSCULAR HEMOGLOBIN 29.6 pg (28-32); MEAN CORPUSCULAR HGB CONC 29.2 g/dL (31-35); MEAN CORPUSCULAR VOLUME 101.6 fL (81-99); MONOCYTES # (AUTO) 1.3 (0.2-0.8); NEUTROPHILS # (AUTO) 26.1 (2.1-6.9); PLATELET COUNT 290 x10e3/uL (140-360); RED BLOOD COUNT 3.07 x10e6/uL (4.3-5.7); RED CELL DISTRIBUTION WIDTH 17.2 % (11.7-14.4)
[2020-06-25 06:56] LABS: ALANINE AMINOTRANSFERASE 61 IU/L (0-55); ALBUMIN 2.3 g/dL (3.5-5.0); ALBUMIN/GLOBULIN RATIO 0.6 (0.8-2.0); ALKALINE PHOSPHATASE 158 IU/L (40-150); ANION GAP 15.2 mmol/L (8-16); BLOOD UREA NITROGEN 30 mg/dL (7-26); BUN/CREATININE RATIO 43 (6-25); CARBON DIOXIDE 33 mmol/L (22-29); CHLORIDE 103 mmol/L (98-107); EST GLOMERULAR FILTRATION RATE > 60 ML/MIN (60-); GLUCOSE 143 mg/dL (74-118); POTASSIUM 4.2 mmol/L (3.5-5.1); SODIUM 147 mmol/L (136-145)
[2020-06-25] MEDS: ROCURONIUM BROMIDE 1,250 MG in SODIUM CHLORIDE 0.9% 250ML 125 ML IV SCH (09:30)
[2020-06-25] MEDS: METHYLPREDNISOLONE SOD SUCC 40 MG/ML VIAL 1ML IV SCH (10:40)
[2020-06-25] MEDS: PIPERACILLIN/TAZOBAC 3.375 GM in SODIUM CHLORIDE 0.9% 50ML 50 ML IV SCH ×2 (10:40→16:41)
[2020-06-25] MEDS: FUROSEMIDE INJ 10 MG/ML 4 ML VIAL IV SCH (10:40)
[2020-06-25 10:46] LABS: BAND NEUTROPHILS % (MANUAL) 1 %; LYMPHOCYTES % (MANUAL) 6 % (19-48); METAMYELOCYTES % (MANUAL) 1 % (0-0); MONOCYTES % (MANUAL) 4 % (3.4-9.0); MYELOCYTES % (MANUAL) 3 % (0-0); NEUTROPHILS % (MANUAL) 85 % (40-74)
[2020-06-25 10:47] LABS: PLATELET ESTIMATE ADEQUATE; PLATELET MORPHOLOGY COMMENT NORMAL; RBC MORPHOLOGY COMMENT ABNORMAL
[2020-06-25] MEDS ORDERED: MIDAZOLAM HCL 5MG/ML 10ML VIAL 100 ML BAG IV ONE (12:33)
[2020-06-25] MEDS ORDERED: PROPOFOL IV EMULSION 10MG/ML 100ML BTL ONE (12:33)
[2020-06-25] MEDS ORDERED: PROPOFOL IV EMULSION 10 MG/ML 50 ML VIAL IV ONE (12:33)
[2020-06-25] MEDS ORDERED: FENTANYL 2,000 MCG/250 ML BAG ONE (12:33)
[2020-06-25 17:54] LABS: ABG HCO3 37 mmol/L (22-26); ABG PCO2 68 mmHg (35-45); ABG PH 7.35 (7.35-7.45); ABG PO2 48 mmHg (80-105); ABG TCO2 39
[2020-06-25] MEDS: FENTANYL 2000MCG/NS 250 250 ML IV SCH (18:24)
[2020-06-26] VITALS (29 sets, daily range): BP systolic 88–147; BP diastolic 44–74
[2020-06-26] MEDS: PIPERACILLIN/TAZOBAC 3.375 GM in SODIUM CHLORIDE 0.9% 50ML 50 ML IV SCH ×4 (00:16→23:40)
[2020-06-26] MEDS: ROCURONIUM BROMIDE 1,250 MG in SODIUM CHLORIDE 0.9% 250ML 125 ML IV SCH (01:25)
[2020-06-26] MEDS: FENTANYL 2000MCG/NS 250 250 ML IV SCH ×3 (01:50→21:27)
[2020-06-26] MEDS: MIDAZOLAM HCL 5MG/ML 10ML VIAL 100 ML IV SCH ×2 (03:42→23:46)
[2020-06-26] MEDS: PROPOFOL IV EMULSION 100 ML IV SCH ×6 (04:59→23:49)
[2020-06-26 06:29] LABS: BASOPHILS # (AUTO) 0.1 (0.0-0.1); BASOPHILS % 0.5 % (0.0-1.0); EOSINOPHILS # (AUTO) 0.2 (0.0-0.4); EOSINOPHILS % 0.9 % (0.0-6.0); HEMOGLOBIN 8.1 g/dL (14.0-18.0); LYMPHOCYTES # (AUTO) 1.5 (1.0-3.2); LYMPHOCYTES % 7.2 % (18.0-39.1); MEAN CORPUSCULAR HEMOGLOBIN 29.6 pg (28-32); MEAN CORPUSCULAR VOLUME 98.5 fL (81-99); MONOCYTES # (AUTO) 0.9 (0.2-0.8); MONOCYTES % 4.5 % (4.4-11.3); NEUTROPHILS # (AUTO) 16.8 (2.1-6.9); NEUTROPHILS % 80.7 % (38.7-80.0); PLATELET COUNT 190 x10e3/uL (140-360); RED BLOOD COUNT 2.74 x10e6/uL (4.3-5.7)
[2020-06-26 06:54] LABS: ALANINE AMINOTRANSFERASE 47 IU/L (0-55); ALBUMIN/GLOBULIN RATIO 0.6 (0.8-2.0); ALKALINE PHOSPHATASE 133 IU/L (40-150); ANION GAP 11.3 mmol/L (8-16); BLOOD UREA NITROGEN 32 mg/dL (7-26); BUN/CREATININE RATIO 46 (6-25); CALCIUM 8.4 mg/dL (8.4-10.2); CARBON DIOXIDE 35 mmol/L (22-29); CHLORIDE 104 mmol/L (98-107); CREATININE, SERUM 0.69 mg/dL (0.72-1.25); EST GLOMERULAR FILTRATION RATE > 60 ML/MIN (60-); GLUCOSE 96 mg/dL (74-118); POTASSIUM 3.3 mmol/L (3.5-5.1); SODIUM 147 mmol/L (136-145)
[2020-06-26 10:42] LABS: ANISOCYTOSIS SLIGHT; BAND NEUTROPHILS % (MANUAL) 2 %; EOSINOPHILS % (MANUAL) 1 % (0-7); LYMPHOCYTES % (MANUAL) 7 % (19-48); MONOCYTES % (MANUAL) 3 % (3.4-9.0); MYELOCYTES % (MANUAL) 2 % (0-0); NEUTROPHILS % (MANUAL) 85 % (40-74); NUCLEATED RED BLOOD CELLS 2; PLATELET ESTIMATE ADEQUATE; PLATELET MORPHOLOGY COMMENT NORMAL
[2020-06-26 10:45] LABS: POLYCHROMASIA FEW; RBC MORPHOLOGY COMMENT ABNORMAL
[2020-06-26] MEDS: FUROSEMIDE INJ 10 MG/ML 4 ML VIAL IV SCH (11:45)
[2020-06-26 12:03] LABS: ABG HCO3 36 mmol/L (22-26); ABG PCO2 61 mmHg (35-45); ABG PH 7.38 (7.35-7.45); ABG PO2 58 mmHg (80-105); ABG TCO2 38
[2020-06-26] MEDS: DEXTROSE 5% 1,000 ML IV SCH (15:36)
[2020-06-26 16:48] LABS: ABG PCO2 66 mmHg (35-45); ABG PH 7.37 (7.35-7.45)
[2020-06-26 16:49] LABS: ABG HCO3 38 mmol/L (22-26); ABG PO2 62 mmHg (80-105); ABG TCO2 40
[2020-06-27] VITALS (19 sets, daily range): BP systolic 87–117; BP diastolic 40–62
[2020-06-27] MEDS: FENTANYL 2000MCG/NS 250 250 ML IV SCH (04:33)
[2020-06-27] MEDS: PROPOFOL IV EMULSION 100 ML IV SCH (05:00)
[2020-06-27] MEDS: MIDAZOLAM HCL 5MG/ML 10ML VIAL 100 ML IV SCH ×2 (05:21→20:45)
[2020-06-27] MEDS: DEXTROSE 5% 1,000 ML IV SCH ×2 (06:37→18:45)
[2020-06-27 06:52] LABS: BASOPHILS # (AUTO) 0.2 (0.0-0.1); BASOPHILS % 0.5 % (0.0-1.0); EOSINOPHILS # (AUTO) 0.1 (0.0-0.4); EOSINOPHILS % 0.3 % (0.0-6.0); HEMATOCRIT 27.6 % (38.2-49.6); HEMOGLOBIN 8.4 g/dL (14.0-18.0); LYMPHOCYTES # (AUTO) 1.4 (1.0-3.2); LYMPHOCYTES % 3.3 % (18.0-39.1); MEAN CORPUSCULAR HGB CONC 30.4 g/dL (31-35); MEAN CORPUSCULAR VOLUME 98.6 fL (81-99); MONOCYTES # (AUTO) 1.3 (0.2-0.8); MONOCYTES % 3.1 % (4.4-11.3); NEUTROPHILS # (AUTO) 37.2 (2.1-6.9); NEUTROPHILS % 89.6 % (38.7-80.0); PLATELET COUNT 200 x10e3/uL (140-360); RED CELL DISTRIBUTION WIDTH 17.5 % (11.7-14.4)
[2020-06-27 07:26] LABS: ALANINE AMINOTRANSFERASE 56 IU/L (0-55); ALBUMIN/GLOBULIN RATIO 0.5 (0.8-2.0); ALKALINE PHOSPHATASE 160 IU/L (40-150); ANION GAP 14.1 mmol/L (8-16); BLOOD UREA NITROGEN 27 mg/dL (7-26); BUN/CREATININE RATIO 38 (6-25); CALCIUM 8.4 mg/dL (8.4-10.2); CARBON DIOXIDE 33 mmol/L (22-29); CHLORIDE 102 mmol/L (98-107); CREATININE, SERUM 0.72 mg/dL (0.72-1.25); EST GLOMERULAR FILTRATION RATE > 60 ML/MIN (60-); GLUCOSE 127 mg/dL (74-118); POTASSIUM 3.1 mmol/L (3.5-5.1); SODIUM 146 mmol/L (136-145)
[2020-06-27 08:46] LABS: ABG HCO3 35 mmol/L (22-26); ABG PCO2 55 mmHg (35-45); ABG PH 7.41 (7.35-7.45); ABG PO2 43 mmHg (80-105); ABG TCO2 37
[2020-06-27 11:11] LABS: ANISOCYTOSIS SLIGHT; EOSINOPHILS % (MANUAL) 1 % (0-7); LYMPHOCYTES % (MANUAL) 2 % (19-48); MONOCYTES % (MANUAL) 2 % (3.4-9.0); MYELOCYTES % (MANUAL) 1 % (0-0); NEUTROPHILS % (MANUAL) 94 % (40-74); PLATELET ESTIMATE ADEQUATE; PLATELET MORPHOLOGY COMMENT NORMAL; RBC MORPHOLOGY COMMENT NORMAL
[2020-06-27] MEDS: FUROSEMIDE INJ 10 MG/ML 4 ML VIAL IV SCH (12:27)
[2020-06-27] MEDS: PANTOPRAZOLE 40 MG 10ML VIAL IV SCH (12:27)
[2020-06-27] MEDS: ROCURONIUM BROMIDE 1,250 MG in SODIUM CHLORIDE 0.9% 250ML 125 ML IV SCH (15:45)
[2020-06-27] MEDS: NOREPINEPHRINE 8 MG/D5W 250 ML 250 ML IV PRN (19:45)
[2020-06-27] MEDS: ACETAMINOPHEN 325 MG TAB NG PRN (23:17)
[2020-06-27] MEDS: PIPERACILLIN/TAZOBAC 3.375 GM in SODIUM CHLORIDE 0.9% 50ML 50 ML IV SCH (23:19)
[2020-06-28] VITALS (25 sets, daily range): BP systolic 92–128; BP diastolic 38–62
[2020-06-28] MEDS: PIPERACILLIN/TAZOBAC 3.375 GM in SODIUM CHLORIDE 0.9% 50ML 50 ML IV SCH ×2 (00:17→00:18)
[2020-06-28] MEDS: MIDAZOLAM HCL 5MG/ML 10ML VIAL 100 ML IV SCH ×4 (02:24→21:00)
[2020-06-28] MEDS: FENTANYL 2000MCG/NS 250 250 ML IV SCH ×3 (02:39→21:30)
[2020-06-28] MEDS: ROCURONIUM BROMIDE 1,250 MG in SODIUM CHLORIDE 0.9% 250ML 125 ML IV SCH (03:18)
[2020-06-28] MEDS: NOREPINEPHRINE 8 MG/D5W 250 ML 250 ML IV PRN (03:30)
[2020-06-28] MEDS: PROPOFOL IV EMULSION 100 ML IV SCH ×3 (03:36→23:57)
[2020-06-28] MEDS: DEXTROSE 5% 1,000 ML IV SCH (05:36)
[2020-06-28 06:46] LABS: BASOPHILS # (AUTO) 0.4 (0.0-0.1); BASOPHILS % 0.7 % (0.0-1.0); EOSINOPHILS # (AUTO) 0.1 (0.0-0.4); EOSINOPHILS % 0.1 % (0.0-6.0); HEMATOCRIT 26.5 % (38.2-49.6); LYMPHOCYTES # (AUTO) 1.8 (1.0-3.2); LYMPHOCYTES % 3.1 % (18.0-39.1); MEAN CORPUSCULAR HEMOGLOBIN 29.6 pg (28-32); MEAN CORPUSCULAR HGB CONC 30.2 g/dL (31-35); MEAN CORPUSCULAR VOLUME 98.1 fL (81-99); MONOCYTES # (AUTO) 2.2 (0.2-0.8); MONOCYTES % 3.7 % (4.4-11.3); NEUTROPHILS # (AUTO) 53.2 (2.1-6.9); NEUTROPHILS % 88.9 % (38.7-80.0); PLATELET COUNT 227 x10e3/uL (140-360); RED CELL DISTRIBUTION WIDTH 18.3 % (11.7-14.4)
[2020-06-28 06:59] LABS: ALANINE AMINOTRANSFERASE 39 IU/L (0-55); ALBUMIN 1.8 g/dL (3.5-5.0); ALBUMIN/GLOBULIN RATIO 0.4 (0.8-2.0); ALKALINE PHOSPHATASE 144 IU/L (40-150); ANION GAP 15.2 mmol/L (8-16); BLOOD UREA NITROGEN 26 mg/dL (7-26); BUN/CREATININE RATIO 32 (6-25); CALCIUM 8.5 mg/dL (8.4-10.2); CARBON DIOXIDE 31 mmol/L (22-29); CHLORIDE 99 mmol/L (98-107); CREATININE, SERUM 0.81 mg/dL (0.72-1.25); EST GLOMERULAR FILTRATION RATE > 60 ML/MIN (60-); GLUCOSE 123 mg/dL (74-118); POTASSIUM 3.2 mmol/L (3.5-5.1); SODIUM 142 mmol/L (136-145)
[2020-06-28 08:11] LABS: ABG HCO3 32 mmol/L (22-26); ABG PCO2 72 mmHg (35-45); ABG PH 7.26 (7.35-7.45); ABG PO2 46 mmHg (80-105); ABG TCO2 34
[2020-06-28] MEDS: PANTOPRAZOLE 40 MG 10ML VIAL IV SCH (09:06)
[2020-06-28 10:15] LABS: ANISOCYTOSIS SLIGHT; LYMPHOCYTES % (MANUAL) 2 % (19-48); MONOCYTES % (MANUAL) 3 % (3.4-9.0); NEUTROPHILS % (MANUAL) 95 % (40-74); PLATELET ESTIMATE ADEQUATE; POLYCHROMASIA FEW
[2020-06-28 10:16] LABS: PLATELET MORPHOLOGY COMMENT FEW LARGE; RBC MORPHOLOGY COMMENT ABNORMAL
[2020-06-29] VITALS (26 sets, daily range): BP systolic 87–129; BP diastolic 41–89
[2020-06-29] MEDS: MIDAZOLAM HCL 5MG/ML 10ML VIAL 100 ML IV SCH ×2 (02:00→23:40)
[2020-06-29] MEDS: FENTANYL 2000MCG/NS 250 250 ML IV SCH (05:23)
[2020-06-29 06:38] LABS: BASOPHILS # (AUTO) 0.2 (0.0-0.1); BASOPHILS % 0.4 % (0.0-1.0); EOSINOPHILS # (AUTO) 0.2 (0.0-0.4); EOSINOPHILS % 0.6 % (0.0-6.0); HEMATOCRIT 23.7 % (38.2-49.6); HEMOGLOBIN 7.3 g/dL (14.0-18.0); LYMPHOCYTES # (AUTO) 1.1 (1.0-3.2); LYMPHOCYTES % 2.9 % (18.0-39.1); MEAN CORPUSCULAR HEMOGLOBIN 29.7 pg (28-32); MEAN CORPUSCULAR HGB CONC 30.8 g/dL (31-35); MEAN CORPUSCULAR VOLUME 96.3 fL (81-99); MONOCYTES # (AUTO) 1.1 (0.2-0.8); MONOCYTES % 2.8 % (4.4-11.3); NEUTROPHILS # (AUTO) 34.3 (2.1-6.9); NEUTROPHILS % 90.6 % (38.7-80.0); PLATELET COUNT 175 x10e3/uL (140-360); RED BLOOD COUNT 2.46 x10e6/uL (4.3-5.7)
[2020-06-29 07:00] LABS: ALANINE AMINOTRANSFERASE 26 IU/L (0-55); ALBUMIN 1.5 g/dL (3.5-5.0); ALBUMIN/GLOBULIN RATIO 0.4 (0.8-2.0); ALKALINE PHOSPHATASE 122 IU/L (40-150); ANION GAP 13.9 mmol/L (8-16); BLOOD UREA NITROGEN 23 mg/dL (7-26); BUN/CREATININE RATIO 35 (6-25); CALCIUM 8.2 mg/dL (8.4-10.2); CARBON DIOXIDE 30 mmol/L (22-29); CHLORIDE 99 mmol/L (98-107); CREATININE, SERUM 0.65 mg/dL (0.72-1.25); EST GLOMERULAR FILTRATION RATE > 60 ML/MIN (60-); GLUCOSE 100 mg/dL (74-118); SODIUM 140 mmol/L (136-145)
[2020-06-29 07:03] LABS: POTASSIUM 2.9 mmol/L (3.5-5.1)
[2020-06-29 10:27] LABS: EOSINOPHILS % (MANUAL) 3 % (0-7); LYMPHOCYTES % (MANUAL) 5 % (19-48); MONOCYTES % (MANUAL) 2 % (3.4-9.0); MYELOCYTES % (MANUAL) 2 % (0-0); NEUTROPHILS % (MANUAL) 88 % (40-74)
[2020-06-29 10:28] LABS: PLATELET ESTIMATE ADEQUATE; RBC MORPHOLOGY COMMENT NORMAL
[2020-06-29] MEDS: PANTOPRAZOLE 40 MG 10ML VIAL IV SCH (10:56)
[2020-06-29] MEDS ORDERED: POTASSIUM CHLORIDE 20MEQ/100ML 200 ML IV ONE (13:30)
[2020-06-29] MEDS ORDERED: KCL 20 MEQ PACKET/ ORAL SOLN NG ONE (13:30)
[2020-06-29] MEDS: ROCURONIUM BROMIDE 1,250 MG in SODIUM CHLORIDE 0.9% 250ML 125 ML IV SCH (15:45)
[2020-06-29] MEDS ORDERED: PHENYLEPHRINE 10MG/ML VIAL 40 MG in DEXTROSE 5% 250ML 250 ML IV PRN (21:00)
[2020-06-29] MEDS: ENOXAPARIN SOD INJ 60 MG/0.6 ML SYR SC SCH (21:03)
[2020-06-29] MEDS ORDERED: DEXTROSE 5% 250ML 250 ML IV ONE ×2 (21:15→21:57)
[2020-06-29] MEDS ORDERED: PHENYLEPHRINE HCL 1% 10 MG/ML VIAL ONE ×2 (21:20→21:48)
[2020-06-29] MEDS: PHENYLEPHRINE 10MG/ML VIAL 40 MG in DEXTROSE 5% 250ML 250 ML IV PRN (21:34)
[2020-06-29] MEDS ORDERED: VASOPRESSIN INJ 20 UNIT/ML VIAL ONE (21:48)
[2020-06-29] MEDS ORDERED: DEXTROSE 5% 50ML 50 ML IV ONE (21:58)
[2020-06-29] MEDS: VASOPRESSIN 60 UNIT in DEXTROSE 5% 50ML 57 ML IV PRN (22:03)
[2020-06-29] MEDS: NOREPINEPHRINE 8 MG/D5W 250 ML 250 ML IV PRN (23:43)
[2020-06-30] VITALS (16 sets, daily range): BP systolic 77–110; BP diastolic 43–61
[2020-06-30] MEDS: FENTANYL 2000MCG/NS 250 250 ML IV SCH ×3 (00:22→14:04)
[2020-06-30] MEDS ORDERED: ACETAMINOPHEN 1000 MG/100 ML IV STA (00:26)
[2020-06-30] MEDS ORDERED: VANCOMYCIN 1GM/NS 250 ML 250 ML IV ONE (01:30)
[2020-06-30] MEDS ORDERED: PIPER-TAZ 3.375 GM / NS 50ML IV ONE (01:30)
[2020-06-30] MEDS ORDERED: DEXTROSE 5% 250ML 250 ML IV ONE (03:31)
[2020-06-30] MEDS ORDERED: PHENYLEPHRINE HCL 1% 10 MG/ML VIAL ONE (03:31)
[2020-06-30] MEDS: PHENYLEPHRINE 10MG/ML VIAL 40 MG in DEXTROSE 5% 250ML 250 ML IV PRN ×3 (03:35→15:08)
[2020-06-30 06:16] LABS: BASOPHILS # (AUTO) 0.1 (0.0-0.1); BASOPHILS % 0.1 % (0.0-1.0); HEMATOCRIT 29.8 % (38.2-49.6); HEMOGLOBIN 8.9 g/dL (14.0-18.0); LYMPHOCYTES # (AUTO) 1.7 (1.0-3.2); LYMPHOCYTES % 2.2 % (18.0-39.1); MEAN CORPUSCULAR HEMOGLOBIN 30.6 pg (28-32); MEAN CORPUSCULAR HGB CONC 29.9 g/dL (31-35); MEAN CORPUSCULAR VOLUME 102.4 fL (81-99); MONOCYTES # (AUTO) 2.6 (0.2-0.8); MONOCYTES % 3.3 % (4.4-11.3); NEUTROPHILS # (AUTO) 69.7 (2.1-6.9); NEUTROPHILS % 89.6 % (38.7-80.0); PLATELET COUNT 284 x10e3/uL (140-360); RED BLOOD COUNT 2.91 x10e6/uL (4.3-5.7)
[2020-06-30 06:40] LABS: ALANINE AMINOTRANSFERASE 135 IU/L (0-55); ALBUMIN 1.7 g/dL (3.5-5.0); ALBUMIN/GLOBULIN RATIO 0.4 (0.8-2.0); ALKALINE PHOSPHATASE 193 IU/L (40-150); BLOOD UREA NITROGEN 25 mg/dL (7-26); BUN/CREATININE RATIO 26 (6-25); CALCIUM 8.3 mg/dL (8.4-10.2); CARBON DIOXIDE 23 mmol/L (22-29); CHLORIDE 98 mmol/L (98-107); CREATININE, SERUM 0.95 mg/dL (0.72-1.25); EST GLOMERULAR FILTRATION RATE > 60 ML/MIN (60-); GLUCOSE 116 mg/dL (74-118); SODIUM 137 mmol/L (136-145)
[2020-06-30] MEDS: ACETAMINOPHEN 325 MG TAB NG PRN (06:42)
[2020-06-30 08:06] LABS: ABG PH 7.08 (7.35-7.45)
[2020-06-30 08:07] LABS: ABG HCO3 25 mmol/L (22-26); ABG PCO2 84 mmHg (35-45); ABG PO2 48 mmHg (80-105); ABG TCO2 27
[2020-06-30] MEDS: MIDAZOLAM HCL 5MG/ML 10ML VIAL 100 ML IV SCH ×2 (08:30→14:16)
[2020-06-30 08:50] LABS: HYPOCHROMASIA SLIGHT; LYMPHOCYTES % (MANUAL) 1 % (19-48); MONOCYTES % (MANUAL) 1 % (3.4-9.0); NEUTROPHILS % (MANUAL) 98 % (40-74); NUCLEATED RED BLOOD CELLS 1; PLATELET ESTIMATE ADEQUATE
[2020-06-30 08:51] LABS: PLATELET MORPHOLOGY COMMENT NORMAL; POLYCHROMASIA FEW; RBC MORPHOLOGY COMMENT ABNORMAL
[2020-06-30] MEDS: ENOXAPARIN SOD INJ 60 MG/0.6 ML SYR SC SCH (08:58)
[2020-06-30] MEDS: PANTOPRAZOLE 40 MG 10ML VIAL IV SCH (08:58)
[2020-06-30] MEDS: VASOPRESSIN 60 UNIT in DEXTROSE 5% 50ML 57 ML IV PRN (09:13)
[2020-06-30] MEDS: NOREPINEPHRINE 8 MG/D5W 250 ML 250 ML IV PRN (11:42)
[2020-06-30] MEDS ORDERED: FENTANYL 2,000 MCG/250 ML BAG ONE (12:41)
[2020-06-30] MEDS ORDERED: MIDAZOLAM HCL 5MG/ML 10ML VIAL 100 ML BAG IV ONE (12:41)
[2020-06-30] MEDS ORDERED: PROPOFOL IV EMULSION 10 MG/ML 50 ML VIAL IV ONE (12:41)
[2020-06-30] MEDS ORDERED: PROPOFOL IV EMULSION 10MG/ML 100ML BTL ONE (12:41)
[2020-06-30] MEDS ORDERED: LORAZEPAM INJ 2 MG/ML VIAL IV PRN (15:15)
[2020-06-30] MEDS ORDERED: MORPHINE SULFATE INJ 2 MG/ML SYR IV PRN (15:15)
[2020-06-30] MEDS: ROCURONIUM BROMIDE 1,250 MG in SODIUM CHLORIDE 0.9% 250ML 125 ML IV SCH (15:45)
== END 2020-06-30 20:45 | disposition expired | DRG 4 ==
LOC: ER 13:29 → ERHOLD 13:57 → IMCU 05-02 02:07 → ICU 05-05 01:38 → COVIDICU 05-26 18:52 → IMCU 06-30 15:35
PROVIDERS: ADMIT Family Medicine; ATTEND Family Medicine
PROC: 5A09557 Assistance with Respiratory Ventilation, Greater than 96 Consecutive Hours, Continuous Positive Airway Pressure (ICD-10-PCS; principal; 2020-05-04)
PROC: 3E0436Z Introduction of Nutritional Substance into Central Vein, Percutaneous Approach (ICD-10-PCS; 2020-05-06)
PROC: 02HV33Z Insertion of Infusion Device into Superior Vena Cava, Percutaneous Approach (ICD-10-PCS; 2020-05-13)
PROC: B548ZZA Ultrasonography of Superior Vena Cava, Guidance (ICD-10-PCS; 2020-05-13)
PROC: 5A1955Z Respiratory Ventilation, Greater than 96 Consecutive Hours (ICD-10-PCS; 2020-05-14)
PROC: 0BH18EZ Insertion of Endotracheal Airway into Trachea, Via Natural or Artificial Opening Endoscopic (ICD-10-PCS; 2020-05-14)
PROC: 5A1D70Z Performance of Urinary Filtration, Intermittent, Less than 6 Hours Per Day (ICD-10-PCS; 2020-05-14)
PROC: 05HM33Z Insertion of Infusion Device into Right Internal Jugular Vein, Percutaneous Approach (ICD-10-PCS; 2020-05-14)
PROC: B543ZZA Ultrasonography of Right Jugular Veins, Guidance (ICD-10-PCS; 2020-05-14)
PROC: 5A1D70Z Performance of Urinary Filtration, Intermittent, Less than 6 Hours Per Day (ICD-10-PCS; 2020-05-15)
PROC: 5A1D70Z Performance of Urinary Filtration, Intermittent, Less than 6 Hours Per Day (ICD-10-PCS; 2020-05-16)
PROC: 5A1D70Z Performance of Urinary Filtration, Intermittent, Less than 6 Hours Per Day (ICD-10-PCS; 2020-05-18)
PROC: 5A1D70Z Performance of Urinary Filtration, Intermittent, Less than 6 Hours Per Day (ICD-10-PCS; 2020-05-20)
PROC: 5A1D70Z Performance of Urinary Filtration, Intermittent, Less than 6 Hours Per Day (ICD-10-PCS; 2020-05-22)
PROC: 5A1D70Z Performance of Urinary Filtration, Intermittent, Less than 6 Hours Per Day (ICD-10-PCS; 2020-05-23)
PROC: 5A1D70Z Performance of Urinary Filtration, Intermittent, Less than 6 Hours Per Day (ICD-10-PCS; 2020-05-24)
PROC: 5A1D70Z Performance of Urinary Filtration, Intermittent, Less than 6 Hours Per Day (ICD-10-PCS; 2020-05-25)
PROC: 5A1D70Z Performance of Urinary Filtration, Intermittent, Less than 6 Hours Per Day (ICD-10-PCS; 2020-05-26)
PROC: 5A1D70Z Performance of Urinary Filtration, Intermittent, Less than 6 Hours Per Day (ICD-10-PCS; 2020-05-27)
PROC: 5A1D70Z Performance of Urinary Filtration, Intermittent, Less than 6 Hours Per Day (ICD-10-PCS; 2020-05-29)
PROC: 5A1D70Z Performance of Urinary Filtration, Intermittent, Less than 6 Hours Per Day (ICD-10-PCS; 2020-05-31)
PROC: 30243N1 Transfusion of Nonautologous Red Blood Cells into Central Vein, Percutaneous Approach (ICD-10-PCS; 2020-05-31)
PROC: 05HN33Z Insertion of Infusion Device into Left Internal Jugular Vein, Percutaneous Approach (ICD-10-PCS; 2020-06-03)
PROC: B544ZZA Ultrasonography of Left Jugular Veins, Guidance (ICD-10-PCS; 2020-06-03)
PROC: 3E043XZ Introduction of Vasopressor into Central Vein, Percutaneous Approach (ICD-10-PCS; 2020-06-03)
PROC: 5A1D70Z Performance of Urinary Filtration, Intermittent, Less than 6 Hours Per Day (ICD-10-PCS; 2020-06-04)
PROC: 30243N1 Transfusion of Nonautologous Red Blood Cells into Central Vein, Percutaneous Approach (ICD-10-PCS; 2020-06-04)
PROC: 30243N1 Transfusion of Nonautologous Red Blood Cells into Central Vein, Percutaneous Approach (ICD-10-PCS; 2020-06-05)
PROC: 5A1D70Z Performance of Urinary Filtration, Intermittent, Less than 6 Hours Per Day (ICD-10-PCS; 2020-06-07)
PROC: 0W9930Z Drainage of Right Pleural Cavity with Drainage Device, Percutaneous Approach (ICD-10-PCS; 2020-06-17)
PROC: 0W9930Z Drainage of Right Pleural Cavity with Drainage Device, Percutaneous Approach (ICD-10-PCS; 2020-06-17)
PROC: 0WP930Z Removal of Drainage Device from Right Pleural Cavity, Percutaneous Approach (ICD-10-PCS; 2020-06-17)
PROC: 30243N1 Transfusion of Nonautologous Red Blood Cells into Central Vein, Percutaneous Approach (ICD-10-PCS; 2020-06-18)
PROC: 30243N1 Transfusion of Nonautologous Red Blood Cells into Central Vein, Percutaneous Approach (ICD-10-PCS; 2020-06-19)
PROC: 0B110F4 Bypass Trachea to Cutaneous with Tracheostomy Device, Open Approach (ICD-10-PCS; 2020-06-21)
DX: A41.89 Other specified sepsis (principal); U07.1 COVID-19; J12.82 Pneumonia due to coronavirus disease 2019; N17.0 Acute kidney failure with tubular necrosis; J80 Acute respiratory distress syndrome; J93.0 Spontaneous tension pneumothorax; J69.0 Pneumonitis due to inhalation of food and vomit; J15.212 Pneumonia due to Methicillin resistant Staphylococcus aureus; R65.21 Severe sepsis with septic shock; N18.6 End stage renal disease; K55.039 Acute (reversible) ischemia of large intestine, extent unspecified; N17.9 Acute kidney failure, unspecified; T82.41XA Breakdown (mechanical) of vascular dialysis catheter, initial encounter; E87.0 Hyperosmolality and hypernatremia; E87.1 Hypo-osmolality and hyponatremia; E44.0 Moderate protein-calorie malnutrition; E87.2 Acidosis; C64.2 Malignant neoplasm of left kidney, except renal pelvis; J94.2 Hemothorax; I82.623 Acute embolism and thrombosis of deep veins of upper extremity, bilateral; A41.9 Sepsis, unspecified organism; R65.20 Severe sepsis without septic shock; N28.89 Other specified disorders of kidney and ureter; R73.9 Hyperglycemia, unspecified; K21.9 Gastro-esophageal reflux disease without esophagitis; K76.0 Fatty (change of) liver, not elsewhere classified; E87.5 Hyperkalemia; D63.8 Anemia in other chronic diseases classified elsewhere; E87.6 Hypokalemia; I50.9 Heart failure, unspecified; D50.0 Iron deficiency anemia secondary to blood loss (chronic); Z66 Do not resuscitate; E66.9 Obesity, unspecified; Z68.32 Body mass index [BMI] 32.0-32.9, adult
CPT/HCPCS: 31500; 36415; 36569; 36600; 71045; 71260; 74018; 74176; 74177; 74470; 76700; 80048; 80053; 80076; 80202; 81001; 82150; 82550; 82553; 82805; 82948; 83605; 83690; 83735; 83880; 84100; 84132; 84134; 84478; 84484; 84630; 85014; 85025; 85384; 85610; 85730; 86705; 86706; 86850; 86870; 86880; 86900; 86905; 86920; 86922; 87040; 87070; 87071; 87086; 87186; 87205; 87340; 87493; 90962; 93005; 93306; 93970; 94002; 94003; 94660; 96361; 99001; 99251; 99285; J0171; J0330; J0360; J0456; J0692; J0696; J1100; J1200; J1644; J1650; J1885; J1940; J2060; J2150; J2248; J2250; J2270; J2370; J2405; J2543; J2765; J2920; J3010; J3370; J3430; J3475; J3480; J7030; J7050; J7070; J7121; J7799; P9016; P9047; Q9967; U0002